=== PATIENT | female | born 1940 | race Caucasian/White ===

== ENCOUNTER → 2016-08-20 | Outpatient (CLI) | payer BC ==
[~2016-08-20] MED LIST: CALC500C70 PO; GLC500 PO; GLIM2TAB2 PO; LIRA18IN SC; LTR510 PO; PANT40TA PO; SIMV10TA2 PO
[2016-08-20 10:29] LABS: ESTIMATED AVERAGE GLUCOSE 154 mg/dl; HA1C FLAG Normal (Normal)
[2016-08-20 10:54] LABS: ALT/SGPT 16 U/L (12-78); AST/SGOT 10 U/L (15-37); BLOOD UREA NITROGEN 12 mg/dl (7-18); BUN/CREATININE RATIO 20.9 (10-20); CARBON DIOXIDE 30 mmol/L (21-32); CHLORIDE 108 mmol/L (98-107); CREATININE 0.58 mg/dl (0.60-1.20); GLUCOSE 86 mg/dl (70-99); POTASSIUM 3.8 mmol/L (3.5-5.1); SODIUM 145 mmol/L (136-145)
[2016-08-20 10:56] LABS: ALB/GLOB RATIO 1.3 (0.9-2); CHOLESTEROL 155 mg/dl (0-200); TRIGLYCERIDES 93 mg/dl (0-150); VERY LOW DENSITY LIPOPROT CALC 19 mg/dl
[2016-08-20 10:57] LABS: CALCIUM 9.5 mg/dl (8.5-10.1)
[2016-08-20 10:58] LABS: ALKALINE PHOSPHATASE 96 U/L (45-117); CHOLESTEROL/HDL RATIO 2.3; HDL CHOLESTEROL 68 mg/dl; LDL CHOLESTEROL CALCULATED 68 mg/dl
--- NOTE | 2016-08-26 09:34 | CODING QUERY MEDICAL NECESSITY ---
SUPPORTING DIAGNOSIS NEEDED Dr. Dos Santos, A supporting diagnosis is required for the test/procedure performed on this patient in order for us to be reimbursed by the patient's insurance. Please provide a supporting diagnosis for the following test/procedure listed below next to the test name along with your signature. *If there is no additional diagnosis for this patient that would support the following test/procedure please document that below next to the test/procedure. Test(s)/Procedure(s) that require a supporting diagnosis: * [id number] GLYCATED HEMOGLOBIN DIAGNOSIS: DATE OF SERVICE: 08/20/16 Provider Signature: Date: Thank you Kashif Rich [facility] Information Management Once completed, please kindly fax back to [phone] For questions please call [phone]
== END | disposition home or self-care (01) ==
LOC: C.LAB 08:00
PROVIDERS: ATTEND Internal Medicine
DX: M85.80 Other specified disorders of bone density and structure, unspecified site (principal); E11.9 Type 2 diabetes mellitus without complications

== ENCOUNTER → 2017-02-18 | Outpatient (CLI) | payer BC ==
[2017-02-18 09:27] LABS: BASO % 0.1 %; BASO ABS # 0.01 K/uL (0-0.2); COMPLETE YES; EOS % 0.9 %; HEMATOCRIT 40.1 % (37-47); IG% 0.1 %; LYMPH % 35.6 %; LYMPH ABS # 2.42 K/uL (1.2-3.4); MEAN CELL VOLUME 85.3 fL (80-100); MEAN CORPUSCULAR HEMOGLOBIN 28.9 pg (25-34); MEAN CORPUSCULAR HGB CONC 33.9 g/dl (32-36); MEAN PLATELET VOLUME 10.8 fL (7.4-10.4); MONO % 8.8 %; NEUT % 54.5 %; PLATELET COUNT 356 K/uL (130-400)
[2017-02-18 09:48] LABS: ALT/SGPT 16 U/L (12-78); BLOOD UREA NITROGEN 13 mg/dl (7-18); BUN/CREATININE RATIO 19.8 (10-20); CALCIUM 9.5 mg/dl (8.5-10.1); CARBON DIOXIDE 27 mmol/L (21-32); CHLORIDE 107 mmol/L (98-107); CHOLESTEROL 148 mg/dl (0-200); CREATININE 0.66 mg/dl (0.60-1.20); GLUCOSE 91 mg/dl (70-99); SODIUM 141 mmol/L (136-145); TRIGLYCERIDES 86 mg/dl (0-150); VERY LOW DENSITY LIPOPROT CALC 17 mg/dl
[2017-02-18 09:58] LABS: ALB/GLOB RATIO 0.9 (0.9-2); ALKALINE PHOSPHATASE 94 U/L (45-117); AST/SGOT 13 U/L (15-37); CHOLESTEROL/HDL RATIO 2.7; HDL CHOLESTEROL 55 mg/dl; LDL CHOLESTEROL CALCULATED 76 mg/dl
[2017-02-18 10:34] LABS: ESTIMATED AVERAGE GLUCOSE 157 mg/dl; HA1C FLAG Normal (Normal)
--- NOTE | 2017-02-25 08:13 | CODING QUERY MEDICAL NECESSITY ---
CQSUPPORTING DIAGNOSIS NEEDED A supporting diagnosis is required for the test/procedure performed on this patient in order for us to be reimbursed by the patient's insurance. Please provide a supporting diagnosis for the following test/procedure listed below next to the test name along with your signature. *If there is no additional diagnosis for this patient that would support the following test/procedure please document that below next to the test/procedure. Test(s)/Procedure(s) that require a supporting diagnosis: DOS 02/18/17 GLYCATED HEMOGLOBIN TEST LIPID TEST THYROID TEST Provider Signature: Date: Thank you Jessie Styles [facility] Information Management Once completed, please kindly fax back to [phone] For questions please call [phone]
== END | disposition home or self-care (01) ==
LOC: C.LAB 07:39
PROVIDERS: ATTEND Internal Medicine
DX: G47.33 Obstructive sleep apnea (adult) (pediatric) (principal); E11.9 Type 2 diabetes mellitus without complications; E78.5 Hyperlipidemia, unspecified

== ENCOUNTER → 2017-04-07 | Outpatient (CLI) | payer BC ==
--- NOTE | 2017-04-07 15:40 | MAMMOGRAPHY REPORT ---
BILATERAL DIGITAL SCREENING MAMMOGRAM WITH CAD: 04/07/2017 CLINICAL HISTORY: Routine screening. TECHNIQUE: Current study was also evaluated with a Computer Aided Detection (CAD) system. Bilateral CC and MLO views were obtained. COMPARISON: Comparison is made to exams dated: 09/28/2012 mammogram and 09/19/2009 mammogram - [facility]. BREAST COMPOSITION: There are scattered areas of fibroglandular density in both breasts. FINDINGS: No suspicious masses, calcifications, or areas of architectural distortion are noted in ei ther breast. There has been no significant interval change compared to prior exams. IMPRESSION: ACR BI-RADS CATEGORY 1: NEGATIVE There is no mammographic evidence of malignancy. A 1 year screening mammogram is recommended. The pa tient will receive written notification of the results. Approximately 10% of breast cancers are not detected with mammography. A negative mammographic report should not delay biopsy if a clinically suggestive mass is present. Mariam Niño M.D. ah/:04/07/2017 14:57:23 Electric Blanket Wirer: George CHANCE(Luis)(Win), [facility] letter sent: Normal 1/2 BI-RADS Code: ACR BI-RADS Category 1: Negative
== END | disposition home or self-care (01) ==
LOC: C.MAMM 14:05
PROVIDERS: ATTEND Internal Medicine
DX: Z12.31 Encounter for screening mammogram for malignant neoplasm of breast (principal)

== ENCOUNTER → 2017-08-26 | Outpatient (CLI) | payer BC ==
[2017-08-26 10:08] LABS: BASO % 0.2 %; BASO ABS # 0.01 K/uL (0-0.2); EOS % 0.7 %; EOS ABS # 0.04 K/uL (0-0.5); HEMATOCRIT 40.4 % (37-47); HEMOGLOBIN 13.6 g/dL (12.0-16.0); IG# 0.01 K/uL (0.00-0.02); LYMPH % 39.3 %; LYMPH ABS # 2.29 K/uL (1.2-3.4); MEAN CELL VOLUME 86.7 fL (80-100); MEAN CORPUSCULAR HEMOGLOBIN 29.2 pg (25-34); MEAN CORPUSCULAR HGB CONC 33.7 g/dl (32-36); MEAN PLATELET VOLUME 11.5 fL (7.4-10.4); MONO % 8.2 %; MONO ABS # 0.48 K/uL (0.11-0.59); NEUT % 51.4 %; NEUT ABS # 2.99 K/uL (1.4-6.5); PLATELET COUNT 302 K/uL (130-400); RED CELL DISTRIBUTION WIDTH CV 13.6 % (11.5-14.5); WHITE BLOOD COUNT 5.82 K/uL (4.8-10.8)
[2017-08-26 10:19] LABS: HEMOGLOBIN A1C 7.2 % (4.5-5.6)
[2017-08-26 10:22] LABS: ALBUMIN 3.6 gm/dl (3.4-5.0); ALT/SGPT 19 U/L (12-78); BLOOD UREA NITROGEN 16 mg/dl (7-18); CALCIUM 9.1 mg/dl (8.5-10.1); CARBON DIOXIDE 29 mmol/L (21-32); CHOLESTEROL 145 mg/dl (0-200); CREATININE 0.66 mg/dl (0.60-1.20); GLUCOSE 91 mg/dl (70-99); POTASSIUM 4.1 mmol/L (3.5-5.1); SODIUM 139 mmol/L (136-145)
[2017-08-26 10:26] LABS: ALKALINE PHOSPHATASE 90 U/L (45-117); AST/SGOT 16 U/L (15-37); LDL CHOLESTEROL CALCULATED 70 mg/dl; TOTAL PROTEIN 7.2 gm/dl (6.4-8.2)
== END | disposition home or self-care (01) ==
LOC: C.LAB 07:47
PROVIDERS: ATTEND Internal Medicine
DX: M85.80 Other specified disorders of bone density and structure, unspecified site (principal)

== ENCOUNTER 2021-01-07 06:30 | Observation (INO) ==
--- NOTE | 2020-12-03 09:53 | PAT Medication Instructions ---
Medication Instructions Date of Service December 03, 2020 Home Medications Medication Instructions Recorded blood sugar diagnostic #100 ea 10/26/19 FreeStyle Lite Meter #1 ea NS 04/15/20 pen needle, diabetic 32 gauge x #180 ea 05/22/20" Wheeled Walker #1 ea 05/29/20 insulin lispro 100 unit/mL 3 unit SQ BID #1 box MDD 10 11/28/20 subcutaneous pen metformin 500 mg tablet,extended 500 mg PO BID 90 Days #180 tab 11/28/20 release 24 hr calcium carbonate 600 mg calcium (1,500 mg) tablet 600 mg PO QAM multivitamin 1 tab PO QAM amlodipine-benazepril 1 cap PO QAM insulin degludec [Tresiba FlexTouch U-100] 5 units SQ QAM simvastatin 10 mg PO HS insulin lispro 100 unit/mL subcutaneous pen 3 unit SQ BID metformin 500 mg tablet,extended release 24 hr 500 mg PO BID DO NOT take the morning of surgery calcium carbonate 600 mg calcium (1,500 mg) tablet 600 mg PO QAM multivitamin 1 tab PO QAM amlodipine-benazepril 1 cap PO QAM insulin lispro 100 unit/mL subcutaneous pen 3 unit SQ BID metformin 500 mg tablet,extended release 24 hr 500 mg PO BID Take evening before surgery simvastatin 10 mg PO HS insulin lispro 100 unit/mL subcutaneous pen 3 unit SQ BID metformin 500 mg tablet,extended release 24 hr 500 mg PO BID Insulin Dependent Diabetic Patients * Test your blood sugar the morning of surgery * If Blood Sugar is GREATER THAN 150, take HALF of your regular dose of: insulin degludec [Tresiba FlexTouch U-100] take 2 units * If Blood Sugar is LESS THAN 150, DO NOT TAKE ANY: insulin degludec [Tresiba FlexTouch U-100] Other Notes If you have any questions please call us at [phone] or [phone] or [phone] or [phone]
--- NOTE | 2020-12-05 10:20 | Anesthesiology Consultation ---
Date of Service December 05, 2020 Assessment & Plan (1) Encounter for pre-operative examination: - COVID screening: Per assessment on 12/05: Travel screen negative, no known COVID-19 positive contacts or current COVID-19 related symptoms. Patient had second COVID vaccine 11/27. Surgeon arranging preop COVID testing (scheduled 01/01; [facility]). Awaiting results. - Check BSG AM DOS - PCP office visit (11/06/20): "End-stage right knee osteoarthritis. Planning knee replacement in December. Will likely need repeat medical evaluation preoperatively. Would like to have a little better control diabetes before surgery, at minimum A1c 8." Hgba1c 9.8% on preop labs. Personally reviewed by Dr. Byrd > patient was advised by surgeon's office that she is to work with he r PCP to improve glycemic control as much as possible prior to surgery- does not feel that formal clearance needed from their perspective. Surgery r/s to 01/07 (will allow for more time for improvement in glycemic control). Kylie at surgeon's office made aware of increased risks r/t poorly controlled diabetes and potential for cancellation depending on BSG AM DOS. Chart Review Chart Review: Acceptable Risk for Surgery (pending BSG AM DOS) and Patient seen in Pre Admission Testing Teaching & Discussion Pre-Anesthesia Teaching/Discussion Notes: Instructed NPO after midnight before surgery,except medications with 15 cc of water. Medication instructions provided according to the PAT guidelines. History Surgery Operation Date: 01/07/21 07:15 Proposed Procedures p Right Unicompartmental Knee versus - Roberto Byrd MD s Right Total Knee Arthroplasty - Roberto Byrd MD Height/Weight Height: 5 ft 4 in Weight: 80.3 kg Allergies Allergy/AdvReac Type Severity Reaction Status Date / Time No Known Allergies Allergy Verified 11/28/20 09:58 Medications Home Medications Medication Instructions Recorded Confirmed Last Taken calcium carbonate 600 mg calcium 600 mg PO QAM tab 03/08/19 11/28/20 Unknown (1,500 mg) tablet multivitamin 1 tab PO QAM tab 04/13/19 11/28/20 Unknown blood sugar diagnostic #100 ea 10/26/19 11/28/20 Unknown FreeStyle Lite Meter #1 ea NS 04/15/20 11/28/20 Unknown pen needle, diabetic 32 gauge x #180 ea 05/22/20 11/28/20 Unknown " Wheeled Walker #1 ea 05/29/20 05/29/20 Unknown amlodipine-benazepril 1 cap PO QAM 11/27/20 11/28/20 Unknown insulin degludec [Tresiba 5 units SQ QAM 11/27/20 11/28/20 Unknown FlexTouch U-100] simvastatin 10 mg PO HS 11/27/20 11/28/20 Unknown insulin lispro 100 unit/mL 3 unit SQ BID #1 box MDD 10 11/28/20 11/28/20 Unknown subcutaneous pen metformin 500 mg tablet,extended 500 mg PO BID 90 Days #180 tab 11/28/20 11/28/20 Unknown release 24 hr Past Medical History Medical History Chronic low back pain Diabetic retinopathy Gastroparesis Generalized osteoarthritis GERD (gastroesophageal reflux disease) controlled Hyperlipidemia Hypertension 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 Per records Obstructive sleep apnea Could not tolerate device Osteopenia after menopause Type 2 diabetes mellitus with peripheral neuropathy IDDM Exercise / Class Metabolic Activity III < 4 Walking/Shop/Light housework (no chest pain/no sob with walking) Past Family History Family History Father Stroke Mother Diabetes Grandmother (Maternal) Diabetes Denies family history of Ovarian cancer Prostate cancer Myocardial infarction Breast cancer Lung cancer Colorectal cancer Past Surgical History Surgical History H/O tubal ligation History of ankle surgery Left History of cataract surgery R/L History of colonoscopy History of tooth extraction Past Anesthesia History No Hx of Anesthesia Complications and No Family Hx of Anesthesia Complications History of PONV No Hx of PONV and Hx of Motion Sickness Social History Smoking Status: Never smoker Do You Dip or Chew Tobacco: No Hx Alcohol Use: No Hx Substance Use: No substance use type: does not use Review of Systems Patient denies chest pain, shortness of breath, fever, chills, cough, wheezing, palpitations. Physical Exam Vital Signs VITALS BP 127/76 P 83 TEMP 97.8 SP02 98%RA RESP 16 PHYSICAL Mildly decreased cervical extension range of motion. Full TMJ range of motion. TMD 3.5 finger breaths Mallampati Score 3 Dentition: intact, several crowns (molars), "glued" upper front teeth Lungs: clear throughout to auscultation Cardiac: regular rate and rhythm, I/ systolic murmur Spine: normal Carotid arteries: negative bruit Extremities: no edema Testing Laboratory Results 12/05/20 10:54 12/05/20 10:54 PT 10.8 Seconds (9.0-12.0) 12/05/20 10:54 INR 1.1 (0.9-1.1) 12/05/20 10:54 APTT 25.8 Seconds (21.0-31.0) 12/05/20 10:54 Hemoglobin A1c 9.8 % (4.5-5.6) H 12/05/20 10:54 Blood Type A Positive 12/05/20 10:54 Antibody Screen NEGATIVE 12/05/20 10:54 Surgeon's office made aware of significant elevated hgba1c/a1c* Electrocardiogram Date: 12/05/20 NSR with occasional PACs at 65bpm. Chest X-Ray Date: 12/05/20 FINDINGS: The heart is mildly enlarged. There is aortic tortuosity/ectasia. There is no failure. There is no focal pulmonary consolidation. There are no pleural effusions.[ IMPRESSION: No active disease in the chest.
--- NOTE | 2020-12-05 11:30 | XRay Report ---
XR chest Pre-admission PA/Lat CLINICAL HISTORY: Preoperative chest COMPARISON STUDY: CT scan performed 2007 FINDINGS: The heart is mildly enlarged. There is aortic tortuosity/ectasia. There is no failure. Ther e is no focal pulmonary consolidation. There are no pleural effusions.[ IMPRESSION: No active disease in the chest. ACT 112: Negative or not required by law. Electronically signed by: Kaiden Haynes M.D. 12/05/2020 11:29 AM
--- NOTE | 2020-12-05 11:54 | Electrocardiogram Report ---
Test Reason : Blood Pressure : / mmHG Vent. Rate : 065 BPM Atrial Rate : 065 BPM P-R Int : 196 ms QRS Dur : 078 ms QT Int : 408 ms P-R-T Axes : 061 053 043 degrees QTc Int : 424 ms Normal sinus rhythm with occasional Premature atrial complexes When compared with ECG of 22-JUN-2011 14:29, Premature atrial complexes now present Otherwise no significant change Confirmed by Jameson Lamas ([id number]) on 12/05/2020 11:54:20 AM Referred By: Roberto Byrd Confirmed By:Jameson Lamas
[2020-12-05 12:33] LABS: Basophils # (auto) 0.01 K/uL (0-0.2); Basophils % (auto) 0.2 %; Eosinophils # (auto) 0.03 K/uL (0-0.5); Eosinophils % (auto) 0.6 %; Hematocrit (blood only) 39.5 % (37-47); Hemoglobin 13.1 g/dL (12.0-16.0); Lymphocytes # (auto) 1.54 K/uL (1.2-3.4); Lymphocytes % (auto) 30.2 %; Mean Corpuscular Hemoglobin 29.2 pg (25-34); Mean Corpuscular Hgb Conc 33.2 g/dL (32-36); Mean Corpuscular Volume 88.2 fL (80-100); Mean Platelet Volume 12.5 fL (7.4-10.4); Monocytes # (auto) 0.23 K/uL (0.11-0.59); Monocytes % (auto) 4.5 %; Neutrophils # (auto) 3.29 K/uL (1.4-6.5); Neutrophils % (auto) 64.5 %; Platelet Count 279 K/uL (130-400); RDW Coefficient of Variation 13.6 % (11.5-14.5); RDW Standard Deviation 44.4 fL (36.4-46.3); Red Blood Count 4.48 M/uL (4.2-5.4)
[2020-12-05 12:49] LABS: INR 1.1 (0.9-1.1); Partial Thromboplastin Time 25.8 Seconds (21.0-31.0); Prothrombin Time 10.8 Seconds (9.0-12.0)
[2020-12-05 13:29] LABS: Estimated Average Glucose 235 mg/dl; Hemoglobin A1C 9.8 % (4.5-5.6)
[2020-12-05 13:43] LABS: BUN Creatinine Ratio 20.8 (10-20); Calcium 8.8 mg/dl (8.5-10.1); Creatinine Clr Calc Pharmacy 64.6 ml/min; Est GFR (African American) 94.2; Est GFR (Non-African American) 81.3; Potassium 4.4 mmol/L (3.5-5.1)
--- NOTE | 2021-01-03 10:42 | History and Physical Report ---
DATE OF ADMISSION: 01/07/2021 CHIEF COMPLAINT: Persistent right knee pain and discomfort. HISTORY OF PRESENT ILLNESS: The patient is an 80-year-old female who presents for surgical treatment of her right knee. She has been treated by my partner, Dr. Moya in the past for several years. She has developed increased pain and discomfort. She has had temporary relief from injections, which last now only a couple weeks or so. Pain is mostly medial. It is increased with weightbearing. It is affecting her ability to maintain an active and independent lifestyle. She lives by herself and having more trouble doing this. She would like to have her knee fixed. PAST MEDICAL HISTORY: 1. Diabetes with an A1c of 9.2. She has been working hard with her regulatory administrator to try and get this improved. 2. Sleep apnea. 3. Hypertension. 4. Chronic back pain. PAST SURGICAL HISTORY: Include ankle surgery. ALLERGIES: None. CURRENT MEDICINES: Include: 1. Amlodipine/benazepril once a day. 2. Calcium carbonate. 3. Insulin. 4. Metformin. 5. Multivitamin. 6. Simvastatin. SOCIAL HISTORY: This is an 80-year-old female. Lives by herself. No significant alcohol or smoking history. FAMILY HISTORY: Noncontributory. REVIEW OF SYSTEMS: Significant for fairly poorly controlled diabetes. Denies any chest pain or shortness of breath. No history of DVT or PE. No known bleeding problems. PHYSICAL EXAMINATION GENERAL: Shows a pleasant elderly female. Looks younger than her stated age. HEENT: Benign. NECK: Supple, no lymphadenopathy. LUNGS: Clear to auscultation. HEART: Has a regular rate and rhythm. ABDOMEN: Soft, nontender and nondistended. EXTREMITIES: Grossly neurovascularly intact except as follows. Examination of the right knee. She walks independently. She has got varus alignment to her knee. She has got some bony hypertrophy medially and tender over the medial joint line. Small knee effusion. Range of motion 0-125. No instability. ACL is intact. No pain with hip motion. X-RAYS: X-rays of the right knee show advanced right knee medial compartment DJD. She has complete loss of medial joint space. Little bit of chondrocalcinosis laterally. With stress testing, her medial compartment opens up nicely and the lateral compartment is well preserved. ASSESSMENT: An 80-year-old white female with advanced right knee medial compartment degenerative joint disease. She has failed conservative treatment and would like to have her right knee fixed. PLAN: We talked about treatment options. We are going to take her to the operating room and do a right partial knee replacement. If I get in there and the disease is too bad, we will do a full knee replacement. The risks and benefits of this procedure were explained to the patient including but not limited to DVT, PE, , infection, neurological injury, vascular injury, bleeding problem, pain, limited range of motion, stiffness, failure to relieve symptoms, incomplete relief of symptoms, need for further surgery in future, fracture, leg length inequality, nerve palsy, dislocation, etc. The patient understands and desires to proceed. Informed consent was obtained. She does have an elevated blood glucose and A1c. She has been working with her regulatory administrator to try and get this improved but struggling. She has essentially been optimized. In light of this, we will proceed. She is aware that there is increased risk of infection with an elevated blood glucose and poorly controlled diabetes, but does not look like we were able to get it under any better control. She will continue working on this. We talked about holding her metformin in the morning of surgery. She lives alone and we will see how she does postoperatively, but either some family help or she may go to a rehab.
[~2021-01-07 06:30] MED LIST changes: +ACETAMINOPHEN 500 MG TAB PO SCH; +BUPIVACAINE 0.25% 30 ML VIAL ONE; +BUPIVACAINE 0.5 % 5 MG/1 ML PF 10ML VIAL ONE; +BUPIVACAINE LIPOSOME/PF 266 MG, BUPIVACAINE/EPINEPHRINE 50 ML, SODIUM CHLORIDE 0.9% 30 ... INFIL SCH; -CALC500C70 PO; +DEXAMETHASONE SOD INJ 4 MG/ML VIAL ONE; +EPINEPHrine INJ 1 MG/ML AMP ONE; +FAMOTIDINE 20 MG TAB PO SCH; +GABAPENTIN 300 MG CAP PO SCH; -GLC500 PO; -GLIM2TAB2 PO; -LIRA18IN SC; +LR 500ML BOLUS, THEN 15ML/HR IV SCH; +LR 60ML/HR IV SCH; -LTR510 PO; +METOCLOPRAMIDE HCL 10 MG TABLET PO SCH; -PANT40TA PO; -SIMV10TA2 PO; +ceFAZolin 2000MG 2,000 MG/15 ML SYR IV SCH
--- NOTE | 2021-01-07 06:50 | History & Physical Bridge Note ---
Date of Service January 07, 2021 History & Physical Bridge Note I have examined the patient, reviewed the History & Physical and in the interval since the performance of the History & Physical I have noted the following changes of clinical significance: no changes noted
[2021-01-07] MEDS ORDERED: fentaNYL citrate 100 MCG/2 ML VIAL ONE (07:52)
[2021-01-07] MEDS ORDERED: MIDAZOLAM HCL 1 MG/ML 2ML VIAL ONE (07:52)
[2021-01-07] MEDS ORDERED: BUPIVACAINE LIPOSOME 1.3% 266 MG/20 ML VIAL ONE (08:45)
[2021-01-07] MEDS ORDERED: SODIUM CHLORIDE 0.9% PF 50 ML VIAL ONE (08:45)
[2021-01-07] MEDS ORDERED: BUPIVACAINE 0.25% 30 ML VIAL ONE (08:46)
[2021-01-07] MEDS ORDERED: EPINEPHrine INJ 1 MG/ML AMP ONE (08:46)
[2021-01-07] MEDS ORDERED: ATROPINE SULFATE 0.1 MG/ML 10ML SYR IV PRN (09:22)
[2021-01-07] MEDS ORDERED: fentaNYL citrate 100 MCG/2 ML VIAL IV PRN (09:22)
[2021-01-07] MEDS ORDERED: ONDANSETRON INJ 2 MG/ML 2 ML VIAL IV PRN ×2 (09:22→12:31)
[2021-01-07] MEDS ORDERED: ePHEDrine sulfate 50 MG/ML AMP IV PRN (09:22)
[2021-01-07] MEDS ORDERED: PROPOFOL IV EMULSION 10 MG/ML 20 ML VIAL IV ONE (09:35)
[2021-01-07] MEDS: TRANEXAMIC ACID 1,000 MG **IV Intra-op IV SCH ×2 (10:40→10:46)
--- NOTE | 2021-01-07 11:05 | Operative Report ---
Post Operative Report Pre & Post Diagnosis Operation Date: 01/07/21 08:50 Pre-Op Diagnosis: Right Knee Medial Compartment Degenerative Joint Disease Post-Op Diagnosis: Right Knee Medial Compartment Degenerative Joint Disease I identified the patient and participated in the time-out.: Yes Procedure Operation Date: 01/07/21 08:50 Actual Procedures p Right Unicompartmental Knee Arthroplasty(Right) - Roberto Byrd MD Surgeon Roberto Byrd MD Canning Machine Operator DAKOTAH Queen Estimated Blood Loss 25 Findings Consistent with Post-Op Diagnosis Operative findings revealed advanced right knee medial compartment DJD. She had grade 4 [id number] disease of the medial compartment. She had osteophytes medially. Laterally here lateral compartment pretty well-preserved. Patellofemoral compartment well-preserved. Fluids 1500 cc. Specimens Right knee sent for pathology. Anesthesia Type Spinal MAC Complications none Disposition Accompanied Patient To Recovery: No Disposition: Recovery Room Indications Patient is an 80-year-old female whose had a several year history of increasing right knee pain discomfort which became less responsive conservative care. She lives by herself and fairly independent having more difficulty doing this due to her knee pain. X-ray showed medial compartment arthritis. Symptoms localized to the medial side of her knee. She had some fairly mild chondrocalcinosis but based on her symptoms and x-rays we felt a partial knee replacement was not her best option. She also fairly brittle and poorly controlled diabetic and felt this was the best operation for her with the most limited risks. Description of Procedure Operative implants consist of: 1 Biomet Bristol size small femoral component. 2. Biomet [place] right medial size for mobile-bearing polyethylene insert. 3. Biomet [place] right medial size C tibial tray. The patient was taken to the operating, identified, placed on the operating table supine position but a contractors were properly padded. IV antibiotics tried by anesthesia team. A spinal anesthetic and been implemented holding area. Hernandez catheter was placed in sterile fashion. Right factor was then placed in the right lower extremities and prepped and draped in usual sterile fashion. The right leg was elevated exsanguinated with use of an Esmarch and turns placed at 3 mmHg. An anterior approach to the right knee was then performed to longitudinal incision centered over the patella. This went from the superior pole the patella to just medial to the tibial tubercle. Sharp dissection was got through subcutaneous tissues. A medial parapatellar arthrotomy incision was made. Some slight subperiosteal dissection was carried out medially taking great care to protect the MCL ligament. The osteophytes were taken off distal femur as well as the intercondylar notch area. The ACL was examined and intact. I then examined the lateral compartment and looked well preserved. We elected to proceed with a partial knee replacement. The distal femur was then sized to a size small. The external tibial alignment jig was then placed in the interface the tibia and attached to the small spoon. The 4G clamp was used. Tibial cutting guide was pinned in position. The proximal tibial cut was made. Tibia sized to a size C. Attention drawn the femur. The distal femur during the sharp drill bit intramedullary elvia was placed. The small femoral guide was placed and attached to the IM elvia and the holes were drilled for the femoral component. The posterior cutting guide was placed and the posterior cut was made. The 0 spigot was placed in the distal femur was milled. I then trialed the knee in the 4 feeler gauge fit well and flexion and the 1 in extension. Therefore we removed everything and placed the 3 spigot. The distal femur was milled. We trialed the knee again it was well balanced with a 4 implant. We elect to place these implants. The trial implants were removed. The cement drill was used to create some holes in the distal femur for cement interdigitation. Posterior osteophyte was remove d along with the anterior flange of the femur. The tibial tray was pinned in place. The toothbrush saw was used to create the keel for the tibial tray. The medial meniscus had already been excised. We then trialed the knee 1 more time and the 4 insert fit appropriately. We proceed with the placing the implants. All trial implants were removed. The knee was irrigated with copious amounts of pulsatile lavage solution. A single batch [place] G cement was mixed. A right medial size C tibial tray was then cemented in place followed by a small femoral component. A 4 feeler gauge was placed and the knee was brought out into 30 degrees short of full extension total cement hardened. Once the cement hardened final cement check was then performed. We then trialed the knee 1 more time the 4 insert fit appropriately. The permanent 4 insert was placed. The wound was then irrigated extensively. I did inject locally with 100 cc of combination of 20 cc of Exparel, 30 cc of normal saline and 50 cc of quarter percent Marcaine with epinephrine. The patient did receive 1 g tranexamic acid but the tourniquet was then let down for turn time 66 minutes. Hemostasis reduced electrocautery. Extensor neck was then closed with #1 Vicryl suture in a [id number] fashion. The subcutaneous tissue then closed with 2 Dexon suture in buried nerve fascia skin was closed skin debra. Leg was then cleaned and dried and a sterile dressing both Xeroform, 4 x 4's, sterile cast padding, Ronny bandage were applied. Patient then transferred to the recovery room in stable condition. Patient tolerated procedure well there are no complications. Terry Queen, my physician assistant account manager, was present for the entire procedure. His assistance was essential and required for appropriate patient positioning, prepping and draping, surgical exposure, performing the technical details of the operation, placement the implants, closure of the wound, and placement of the sterile bandage. I attest to the content of the Intraoperative Record and any orders documented therein. Any exceptions are noted below.
--- NOTE | 2021-01-07 11:46 | XRay Report ---
RIGHT KNEE 2 VIEWS History: Right medial unicondylar prosthesis. Degenerative arthritis. Postop. FINDINGS: The patient is status post a right medial unicondylar prosthesis. The hardware is intact. N o fracture or dislocation. Skin debra are in place. IMPRESSION: Right medial unicondylar prosthesis. No evidence for hardware complication. ACT 112: Negative or not required by law. Electronically signed by: Ge Rodriguez M.D. 01/07/2021 11:45 AM
--- NOTE | 2021-01-07 12:07 | Anesthesiology Progress Note ---
Date of Service January 07, 2021 Anesthesia Post Procedure Vital Signs Vital Signs: Temp Pulse Pulse Resp BP Pulse Ox 01/07/21 11:35 36.4 C L 79 21 126/62 96 01/07/21 11:25 73 20 129/65 99 01/07/21 11:15 76 21 125/61 100 01/07/21 11:05 36.1 C L 84 20 110/51 L 100 01/07/21 10:57 35.8 C L 56 L 16 112/56 L 100 01/07/21 06:45 36.7 C 85 20 150/86 H 98 Transfer of Care Handoff Completed per policy Notes Mental Status: alert / awake / arousable Patient Amnestic to Procedure: Yes Nausea / Vomiting: adequately controlled Pain: adequately controlled Airway Patency, RR, SpO2: stable & adequate BP & HR: stable & adequate Hydration State: stable & adequate Neuraxial Anesthesia: was administered and sensory block is resolving Anesthetic Complications: no major complications apparent
[2021-01-07] MEDS ORDERED: NALOXONE HCL 0.4 MG/1 ML VIAL/CARP IV PRN (12:31)
[2021-01-07] MEDS ORDERED: bisacodyL 10 MG SUPP PR PRN (12:31)
[2021-01-07] MEDS ORDERED: METOCLOPRAMIDE HCL INJ 5 MG/ML 2 ML VIAL IV PRN (12:31)
[2021-01-07] MEDS ORDERED: ALUMINUM/MAGNESIUM SUSP 30 ML UDC PO PRN (12:31)
[2021-01-07] MEDS ORDERED: HYDROmorphone INJ 0.5 MG/0.5 ML SYR IV PRN (12:31)
[2021-01-07] MEDS ORDERED: traMADol HCL 50 MG TABLET PO PRN (12:31)
[2021-01-07] MEDS ORDERED: MAGNESIUM HYDROXIDE SUSP 30 ML UDC PO PRN (12:31)
[2021-01-07] MEDS ORDERED: PHARMACY GLYCEMIC MGMT CONSULT SCH (12:54)
[2021-01-07] MEDS ORDERED: INSULIN GLARGINE SOLOSTAR 100 UNITS/ML 3 ML PEN SC STA (13:07)
[2021-01-07] MEDS ORDERED: CARBOHYDRATES FOR HYPOGLYCEMIA PO PRN ×2 (13:15→16:18)
[2021-01-07] MEDS ORDERED: GLUCAGON FOR INJ 1 MG VIAL IM PRN (13:15)
[2021-01-07] MEDS ORDERED: DEXTROSE 50% 50 ML SYRINGE IV PRN ×2 (13:15→16:18)
[2021-01-07] MEDS ORDERED: GLUCOSE 40% GEL 15 GM TUBE PO PRN ×2 (13:15→16:18)
[2021-01-07] MEDS ORDERED: GLUCOSE 10 TABS/TUBE PO PRN ×2 (13:15→16:18)
--- NOTE | 2021-01-07 13:20 | Pharmacy Report ---
Pharmacy Glycemic Short Note 2 - Date of Service January 07, 2021 - Glycemic Short BSG Results (Last 24 hours): 01/07/21 01/07/21 01/07/21 06:54 11:06 12:11 POC Glucose 105 H 108 H 135 H OUTPATIENT ANTIDIABETIC REGIMEN: * Tresiba 5 units Q AM * Humalog 3 units with lunch and 3 units with evening meal * Metformin 500mg PO daily w/ lunch * A1c = 9.8% 12/05/20 ASSESSMENT: * Type 2 diabetic admitted for Right Unicompartmental Knee Arthroplasty * Recent A1c reflective of poor control, however patient's self report of home BSGs is quite different. She reports fasting BSGs in 80-low 100s range with current regimen. She also reports post-prandial BSGs in 150-200 range. I am hesitant to utilize weight based doses for her at this time given low insulin requirements in the out-pt setting, current BSGs in low 100's, and self-report of what appears to be fairly good glycemic control. There is a small possibility that her glycosylation rate may not match that of the general population and her A1c is not as reliable. * Will resume home dose of basal but substitute Lantus as this is on formulary. No basal was given this AM, will give dose STAT as she is eating her lunch. * Novolog doses will be based on a combination of out-pt regimen and weight using "mild" stress to keep initial doses low PLAN FOR INPATIENT GLYCEMIC CONTROL: * Hold outpatient oral diabetes medications (metformin) - could consider resuming tomorrow if renal fxn stable and tolerating diet * Basal insulin * Lantus 5 units Q AM - 1st dose STAT * Bolus insulin * NovoLog per scale ACHS or Q6hrs while NPO * Goal Range: Low 110 mg/dL - High 140 mg/dL * Correction Factor: 30 mg/dL/unit * Nutritional / Prandial insulin per carb ratio of 1 unit per 15 grams CHO consumed PLAN FOR DISCHARGE: * Given large discrepancy between reported A1c and patient's self report of BSG values, I feel the discharge insulin regimen should remain the same however recommend f/u with PCP / Endocrinology to review BSG logs and insulin doses to determine what adjustments need made. If we discover she requires substantially more insulin this admission that is reported as out-pt, as small increase in doses on discharge may be considered.
[2021-01-07] MEDS: INSULIN ASPART 100 UNITS/ML 3 ML PEN SC SCH ×3 (14:04→20:42)
[2021-01-07] MEDS: SODIUM CHLORIDE 0.9% 1000ML 1,000 ML IV SCH (14:15)
[2021-01-07] MEDS: ACETAMINOPHEN 500 MG TAB PO SCH ×2 (14:17→21:33)
[2021-01-07] MEDS: KETOROLAC TROMETHAMINE 15 MG/ML VIAL IV SCH ×2 (14:17→19:49)
[2021-01-07] MEDS ORDERED: GLUCAGON FOR INJ 1 MG VIAL SQ PRN (16:18)
[2021-01-07] MEDS: ceFAZolin 2000MG 2,000 MG/15 ML SYR IV SCH (17:36)
[2021-01-07] MEDS: ASCORBIC ACID 500 MG TAB PO SCH (17:36)
[2021-01-07] MEDS: DOCUSATE SODIUM 100 MG CAP PO SCH (20:42)
[2021-01-07] MEDS: ASPIRIN 81 MG ECTAB PO SCH (20:42)
[2021-01-07] MEDS ORDERED: NON-FORMULARY MEDICATION (Insulin Lispro [Humalog Kwikpen Insulin] 100 unit/mL insulin pen SQ SCH (21:00)
[2021-01-07] MEDS ORDERED: SENNA 8.6 MG TAB PO SCH (21:00)
[2021-01-07] MEDS ORDERED: SIMVASTATIN 10 MG TAB PO SCH (21:00)
[2021-01-08] MEDS: ceFAZolin 2000MG 2,000 MG/15 ML SYR IV SCH (00:16)
[2021-01-08] MEDS: SODIUM CHLORIDE 0.9% 1000ML 1,000 ML IV SCH (00:19)
[2021-01-08] MEDS: KETOROLAC TROMETHAMINE 15 MG/ML VIAL IV SCH ×2 (01:57→09:07)
[2021-01-08] MEDS: ACETAMINOPHEN 500 MG TAB PO SCH ×2 (06:02→12:36)
[2021-01-08 06:22] LABS: Hematocrit (blood only) 35.3 % (37-47); Mean Corpuscular Hemoglobin 29.6 pg (25-34); Mean Corpuscular Volume 86.9 fL (80-100); Mean Platelet Volume 12.2 fL (7.4-10.4); Platelet Count 253 K/uL (130-400); RDW Coefficient of Variation 13.6 % (11.5-14.5); RDW Standard Deviation 43.5 fL (36.4-46.3); Red Blood Count 4.06 M/uL (4.2-5.4); White Blood Count 10.48 K/uL (4.8-10.8)
[2021-01-08 06:54] LABS: BUN Creatinine Ratio 23.4 (10-20); Creatinine Clr Calc Pharmacy 64.3 ml/min; Est GFR (African American) 94.2 ml/min; Est GFR (Non-African American) 81.3 ml/min; Potassium 3.7 mmol/L (3.5-5.1)
[2021-01-08] MEDS ORDERED: metFORMIN HCL ER 500 MG TABCR PO SCH (08:00)
--- NOTE | 2021-01-08 08:11 | Progress Notes ---
DATE: 01/08/2021 SUBJECTIVE: An 80-year-old white female postop day 1 from a right partial knee replacement. She is doing pretty well. Really not much pain. No chest pain or shortness of breath. Not feeling dizzy or lightheaded. OBJECTIVE: VITAL SIGNS: Temperature is 36.5. Vital signs stable. GENERAL: Shows a pleasant elderly female. She is sitting up in bed and looks pretty comfortable. She is awake, alert and oriented. EXTREMITIES: Examination of the right leg reveals the leg to be well aligned. Dressing is clean, dry, and intact. She can dorsiflex and plantarflex her foot appropriately. She can do a good straight leg raise. LABORATORY DATA: Hemoglobin 12.0. Hematocrit 35.3. Electrolytes are stable. ASSESSMENT: An 80-year-old white female postop day 1 from a right partial knee replacement, doing pretty well. PLAN: 1. DVT prophylaxis including thigh-high TEDs, SCDs, and aspirin twice a day. 2. PT/OT. Weight bear as tolerated. Right total knee protocol. 3. Pain control, doing well with current pain regimen. 4. Disposition: She is planning to be discharged to home with some home health. We will see how therapy goes today.
[2021-01-08] MEDS: INSULIN ASPART 100 UNITS/ML 3 ML PEN SC SCH ×2 (09:00→12:36)
[2021-01-08] MEDS ORDERED: CALCIUM CARBONATE 1250MG TAB PO SCH (09:00)
[2021-01-08] MEDS ORDERED: INSULIN GLARGINE SOLOSTAR 100 UNITS/ML 3 ML PEN SC SCH (09:00)
[2021-01-08] MEDS ORDERED: amLODIPine BESYLATE 5 MG TAB PO SCH (09:00)
[2021-01-08] MEDS ORDERED: NON-FORMULARY MEDICATION (Insulin Degludec [Tresiba Flextouch U-100] 100 unit/mL (3 mL) in SQ SCH (09:00)
[2021-01-08] MEDS ORDERED: MULTIVITAMIN TAB PO SCH ×2 (09:00)
[2021-01-08] MEDS ORDERED: ENALAPRIL MALEATE 10 MG TAB PO SCH (09:00)
[2021-01-08] MEDS: ASCORBIC ACID 500 MG TAB PO SCH (09:04)
[2021-01-08] MEDS: DOCUSATE SODIUM 100 MG CAP PO SCH (09:05)
[2021-01-08] MEDS: ASPIRIN 81 MG ECTAB PO SCH (09:05)
--- NOTE | 2021-01-08 10:53 | Pharmacy Report ---
Pharmacy Glycemic Short Note 2 - Date of Service January 08, 2021 - Glycemic Short BSG Results (Last 24 hours): 01/07/21 01/07/21 01/07/21 11:06 12:11 17:10 Glucose POC Glucose 108 H 135 H 272 H 01/07/21 01/08/21 01/08/21 20:31 05:44 08:00 Glucose 149 H POC Glucose 298 H 127 H OUTPATIENT ANTIDIABETIC REGIMEN: * Tresiba 5 units Q AM * Humalog 3 units with lunch and 3 units with evening meal * Metformin 500mg PO BIDM * A1c = 9.8% 12/05/20 ASSESSMENT: 01/08 * BSGs trended up significantly postoperatively, 272 and 298 mg/dL * Patient likely received dexamethasone in OR - not covered with additional basal insulin * Fasting BSG of 127 mg/dL this morning * Will continue home basal dose for now since no additional steroids currently ordered * Will restart metformin and tighten Novolog 01/07: * Type 2 diabetic admitted for Right Unicompartmental Knee Arthroplasty * Recent A1c reflective of poor control, however patient's self report of home BSGs is quite different. She reports fasting BSGs in 80-low 100s range with current regimen. She also reports post-prandial BSGs in 150-200 range. I am hesitant to utilize weight based doses for her at this time given low insulin requirements in the out-pt setting, current BSGs in low 100's, and self-report of what appears to be fairly good glycemic control. There is a small possibility that her glycosylation rate may not match that of the general population and her A1c is not as reliable. * Will resume home dose of basal but substitute Lantus as this is on formulary. No basal was given this AM, will give dose STAT as she is eating her lunch. * Novolog doses will be based on a combination of out-pt regimen and weight using "mild" stress to keep initial doses low PLAN FOR INPATIENT GLYCEMIC CONTROL: * Metformin ER 500 mg PO BIDM to start this morning * Basal insulin * Lantus 5 units Q AM * Bolus insulin * NovoLog per scale ACHS or Q6hrs while NPO * Goal Range: Low 110 mg/dL - High 140 mg/dL * Correction Factor: 25 mg/dL/unit * Nutritional / Prandial insulin per carb ratio of 1 unit per 8 grams CHO consumed PLAN FOR DISCHARGE: * Given large discrepancy between reported A1c and patient's self report of BSG values, I feel the discharge insulin regimen should remain the same however recommend f/u with PCP / Endocrinology to review BSG logs and insulin doses to determine what adjustments need made. If we discover she requires substantially more insulin this admission that is reported as out-pt, as small increase in doses on discharge may be considered.
[2021-01-08] MEDS ORDERED: INSULIN GLARGINE SOLOSTAR 100 UNITS/ML 3 ML PEN SC ONE (12:30)
--- NOTE | 2021-01-13 06:23 | Discharge Summary ---
Date of Service January 13, 2021 Discharge Data Procedures Performed Operation Date: 01/07/21 08:50 Actual Procedures p Right Unicompartmental Knee Arthroplasty(Right) - Roberto Byrd MD Diabetes Follow Up Diabetes Follow Up: Diabetes Follow-up Needed for HgbA1c >9% Hospital Course (1) Status post right partial knee replacement: 80 year old patient admitted on 01/07/21 and underwent unicompartment knee arthroplasty. She tolerated the procedure well and there were no complications. Transferred to the PACU post op and later to the orthopedic floor for further care. She was given ancef for antibiotic prophylaxis. She was also given ESTRELLITA stockings, SCDs, and aspirin for DVT prophylaxis. Hemoglobin, hematocrit, and vital signs were monitored during her hospital stay and remained stable. Did not require any blood transfusions. There were no complications during her hospital stay. By post op day #1 the patient was tolerating a diabetic diet, pain was reasonably controlled with oral pain medicine, and she was participating in physical therapy. On post op day #1 the patient was discharged home and set up with home health care. She was given printed discharge instructions including prescriptions for extra strength tylenol, aspirin, and tramadol. Continue physical therapy, weight bearing as tolerated. Continue ESTRELLITA stockings. Follow up approximately 2 weeks post op or sooner if there are problems or concerns. Coding Level of Care Code None Diagnoses Status post right partial knee replacement Z96.651
== END 2021-01-08 14:12 | disposition home health service (06) ==
LOC: ASU 06:30 → 3E 06:30

== ENCOUNTER 2023-01-06 10:23 | Inpatient (IN) ==
[2023-01-06] MEDS: SODIUM CHLORIDE 0.9% 1000ML 1,000 ML IV SCH ×3 (11:47→21:53)
[2023-01-06 11:58] LABS: Appearance Urine Clear (Clear); Bilirubin Urine Negative (Negative); Blood Urine Negative (Negative); Color Urine Yellow; Glucose Urine UA 3+ (Negative); Ketones Urine 2+ (Negative); Leukocyte Esterase Urine Negative (Negative); Nitrite Urine Negative (Negative); Protein Urine 3+ (Negative); Specific Gravity Urine >= 1.030 (1.000-1.030); Urobilinogen Urine Negative (Negative); pH Urine 5.5 (4.5-7.5)
--- NOTE | 2023-01-06 12:21 | XRay Report ---
SINGLE VIEW CHEST CLINICAL HISTORY: Sepsis. FINDINGS: An AP, portable, upright chest radiograph is compared to study dated 12/05/2020. Correlation is made with chest CT dated 08/14/2007. The heart is enlarged noting atherosclerotic calcification of the thoracic aorta there is pulmonary vascular congestion. There is bibasilar scarring/atelectasis. N o large pleural effusion or pneumothorax is seen. The skeletal structures are osteopenic. The bony th orax is grossly intact. IMPRESSION: Cardiomegaly with pulmonary vascular congestion. ACT 112: Negative or not required by law. Electronically signed by: Ronal Omer M.D. 01/06/2023 12:19 PM
[2023-01-06] MEDS ORDERED: CEFEPIME 2,000 MG/20 ML VIAL IV STA (12:32)
--- NOTE | 2023-01-06 12:35 | Emergency Department Note ---
Impression & Plan Generalized weakness, Acute left-sided low back pain, Anaplasmosis, Hypoxia, Elevated troponin ED Provider Note ED Provider Note NAME: PER CHAVARRIA AGE:82 SEX: Female : 1940 ARRIVES VIA: Private vehicle INFORMANT: Patient ED PROVIDER(s): Carolyn Dalton DO CHIEF COMPLAINT: Weakness, back pain, urinary symptoms HPI: This is an 82-year-old female presents the emergency department due to concern for weakness, fatigue, left low back pain, recent urinary symptoms. Patient states she first began not feeling well Tuesday night, with increased fatigue and weakness. She states she checked her temperature and initially was 99, and then went higher to 100.2 and she had accompanying fevers and chills. She states overnight Tuesday she began to notice urinary frequency. No change in the color of the odor. She states she has had a worsening appetite throughout the week and then began to develop left-sided low back pain additionally. She denies any coming abdominal pain, nausea or vomiting. She denies any further fevers or chills. No history of UTIs, kidney stones, or other kidney problems. She denies any recent fall or injury. She denies any other URI symptoms. No change in bowel movements. PAST MEDICAL HISTORY:See Below PAST SURGICAL HISTORY:See Below FAMILY HISTORY:See Below SOCIAL HISTORY:See Below HOME MEDICATIONS:See Below ALLERGIES:See Below VITALS:See Below PHYSICAL EXAMINATION: GENERAL: alert, well appearing, well nourished, no distress, non-toxic EYE EXAM: normal conjunctiva, PERRL and EOM's grossly intact OROPHARYNX: no exudate, no erythema, lips, buccal mucosa, and tongue normal and mucous membranes are dry NECK: supple, no nuchal rigidity, no adenopathy, non-tender LUNGS: Clear to auscultation. Normal chest wall mechanics, no w/r/r HEART: no murmurs, S1 normal and S2 normal ABDOMEN: abdomen soft, non-tender, normo-active bowel sounds, no masses, no rebound or guarding. BACK: Back is symmetrical on inspection and there is no deformity, no midline tenderness, no CVA tenderness. SKIN: no rashes, petechiae, orbruising UPPER EXTREMITIES: upper extremities are grossly normal. FROM, nml pulses b/l. LOWER EXTREMITIES: No pitting edema. FROM, nml pulses b/l. NEURO EXAM: Normal sensorium, cranial nerves II-XII grossly intact, normal speech, no facial droop,nogross weakness of arms, no gross weakness of legs. Gross sensation intact. No ataxia. Vital Signs: reviewed and remarkable Differential Diagnosis: UTI, ureterolithiasis, NICOLAS, electrolyte abnormality, musculoskeletal strain, div erticulitis, colitis, bowel obstruction, as well as others were considered MEDICAL DECISION MAKING: This is an 82-year-old female presents emergency department due to concern for increased weakness, back pain, and recent urinary symptoms. Patient was afebrile and vital signs stable despite being mildly ill-appearing on exam. Labs drawn and sent, IV established, EKG and chest x-ray performed at bedside and interpreted by me and patient monitored on telemetry. She was started on IV fluids due to clinical dehydration. There was a delay in obtaining all of patient's blood work as a chemistry machine was down in the lab for quite some time during the patient's ER visit. Ultimately patient's urine was not strongly suggestive of infection. Patient was sent for CT imaging which did not reveal any obstructive uropathy but did reveal bilateral perinephric inflammatory changes. Patient found to have leukopenia and thrombocytopenia and was positive for anaplasmosis. She had initially been given empiric IV cefepime due to concern for a sending UTI/pyelonephritis. Upon noting the positive anaplasmosis doxycycline was also given. Patient found to have hyperglycemia although no evidence of DKA. Patient found to have an elevated troponin, this was repeated as it did not fit with the clinical picture and was still elevated although mildly improved. It is unclear if this is secondary to current infection or dehydration additionally. Patient with no significant cardiac history. Chest x-ray read by radiology as concerning for evolving congestive changes so IV fluids were slowed. Patient continued on maintenance IV fluids, mildly elevated lactic acid on initial draw did improve on recheck and I suspect was secondary to dehydration. I do not suspect sepsis at this time despite elevated procalcitonin. Patient updated on all results. Unfortunately she was noted to be mildly hypoxic at 89% and had increased weakness with attempts at walking. No other changes to suggest overt CHF. Given clinical picture, case discussed with hospitalist for additional evaluation and management. Consultation(s): 1720: Discussed with Dr. Johnston. ER Treatment Provided: See below 1636: Patient with significant difficulty ambulating to the bathroom even with two-person assist, and was incontinent of urine. Patient noted at rest even prior to ambulation to be hypoxic at 89%. 2 L via nasal cannula applied. Diagnostics Interpreted By Me: -ECG: Normal sinus at 83, normal axis, normal intervals, PACs noted, nonspecific ST/T wave change -Cardiac Monitoring: An order was placed for continuous cardiac monitoring. The monitor shows a rate of 82 with normal sinus rhythm. -Laboratory studies: As stated above and show below. -Imaging studies: X-ray Chest: A single view study of the chest was reviewed and was negative for cardiomegaly, focal infiltrate, effusion, or wide mediastinum. Appearance of mild bilateral pulmonary edema. 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 Per records Obstructive sleep apnea Could not tolerate device Osteopenia after menopause Type 2 diabetes mellitus with peripheral neuropathy IDDM Surgical History H/O tubal ligation History of ankle surgery Left History of cataract surgery R/L History of colonoscopy History of tooth extraction Status post right partial knee replacement Family History Father Stroke Mother Diabetes Grandmother (Maternal) Diabetes Denies family history of Ovarian cancer Prostate cancer Myocardial infarction Breast cancer Lung cancer Colorectal cancer Social History Smoking Status: Never smoker Second Hand Exposure: No; Do You Dip or Chew Tobacco: No; Hx Alcohol Use: No Hx Substance Use: No Preferred Language: Welsh Communication Ability: Effective Visual Impairment: Limited Hearing Ability: Use of Hearing Aid Dog Sitter Required: No Beliefs That Will Affect Care: None marital status: / Current Living Situation: Alone Current Living Situation Comment: Grandson in a nearby apartment current occupational status: retired How many Children do You have: 3 Other Information That Helps Us Care for You: No Feels Safe at Home: Yes Childhood Exposure to Second-Hand Smoke: No caffeine: Yes Dental Care, Regularly: Yes Physical Activity Frequency: 1-2 Times per Week Seatbelt Use: always Sunscreen Use: Yes Assistive Devices: Cane, Glasses and Hearing Aid - Bilateral Allergies Allergies Allergy/AdvReac Type Severity Reaction Status Date / Time No Known Allergies Allergy Verified 01/06/23 17:22 Home Meds Home Medications Medication Instructions Recorded Confirmed calcium carbonate 600 mg calcium 600 mg PO QAM 03/08/19 01/06/23 (1,500 mg) tablet multivitamin 1 tab PO QAM 04/13/19 01/06/23 pen needle, diabetic 32 gauge x 10/15/22 01/06/2332" (BD Ultra-Fine Marquita Pen Needle) Previous Rx's Medication Instructions Recorded FreeStyle Lite Meter #1 ea 12/30/20 (blood-glucose meter) lancets 28 gauge (FreeStyle #200 ea 04/15/21 Lancets) simvastatin 10 mg tablet See Rx Instructions .Route 04/02/22 .COMPLEX #90 tabs amlodipine 5 mg-benazepril 10 mg See Rx Instructions .Route 06/09/22 capsule .COMPLEX #90 caps insulin aspar prot-insulin aspart See Rx Instructions subcut DAILY 11/24/22 100 unit/mL (70-30) subcutaneous #15 mL pen (Novolog Mix 70-30FlexPen U-100) metformin 500 mg tablet,extended 500 mg PO DAILY #90 tabs 12/28/22 release 24 hr Results & Data (ED) Vital Signs Vital Signs - 24 hr 01/06/23 12:00 01/06/23 12:00 01/06/23 12:00 Pulse Rate 86 Pulse Rate [Apical] Pulse Rate from SpO2 Sensor 86 Respiratory Rate 23 Blood Pressure 107/59 L Blood Pressure Mean 84 Pulse Oximetry 94 95 Oxygen Delivery Method Room Air 01/06/23 12:30 01/06/23 12:30 01/06/23 13:00 Pulse Rate 84 Pulse Rate [Apical] Pulse Rate from SpO2 Sensor 84 Respiratory Rate 27 H Blood Pressure 120/62 134/72 Blood Pressure Mean 85 103 Pulse Oximetry 95 Oxygen Delivery Method 01/06/23 13:00 01/06/23 13:30 01/06/23 16:54 Pulse Rate 91 H 88 Pulse Rate [Apical] 88 Pulse Rate from SpO2 Sensor 91 H 88 Respiratory Rate 24 28 H 22 Blood Pressure Blood Pressure Mean Pulse Oximetry 92 94 89 L Oxygen Delivery Method Room Air 01/06/23 16:44 Pulse Rate 84 Pulse Rate [Apical] Pulse Rate from SpO2 Sensor Respiratory Rate Blood Pressure Blood Pressure Mean Pulse Oximetry Oxygen Delivery Method Laboratory Data 01/06/23 11:08 01/06/23 11:08 Lab Results 01/06/23 01/06/23 01/06/23 Range/Units 11:08 11:08 11:08 WBC 2.89 L (4.8-10.8) K/ul RBC 4.18 L (4.20-5.40) M/uL Hgb 12.8 (12.0-16.0) g/dl Hct 36.7 L (37.0-47.0) % MCV 87.8 (80.0-100.0) fL MCH 30.6 (25.0-34.0) pg MCHC 34.9 (32.0-36.0) g/dL RDW Std Deviation 45.1 (36.4-46.3) fL RDW Coeff of Trena 14.0 (11.5-14.5) % Plt Count 95 L (130-400) K/uL MPV 13.1 H (9.4-12.4) fL Immature Gran % (Auto) 1.0 % Neut % (Auto) 89.4 % Lymph % (Auto) 6.2 % [place] % (Auto) 3.1 % Eos % (Auto) 0.0 % Baso % (Auto) 0.3 % Neut # (Auto) 2.58 (1.40-6.50) K/uL Lymph # (Auto) 0.18 L (1.2-3.4) K/uL [place] # (Auto) 0.09 L (0.11-0.59) K/uL Eos # (Auto) 0.00 (0-0.50) K/uL Baso # (Auto) 0.01 (0-0.2) K/uL Immature Gran # (Auto) 0.03 (0.01-0.20) K/uL Platelet Estimate Decreased L (Normal) Peripher Smr Path Cons Sodium 133 L (136-145) mmol/L Potassium 3.8 (3.5-5.1) mmol/L Chloride 99 (98-107) mmol/L Carbon Dioxide 24 (21-32) mmol/L Anion Gap 10 (3-11) BUN 24 H (6-23) mg/dl Creatinine 1.16 (0.6-1.2) mg/dl Est Cr Clr Drug Dosing 39.6 ml/min Est GFR ( Amer) 50.4 ml/min Est GFR (Non-Af Amer) 43.5 ml/min BUN/Creatinine Ratio 20.7 H (10-20) Glucose 289 H (70-99(Fasting)) mg/dl Lactate 2.2 H* (0.4-2.0) mmol/L Calcium 8.8 (8.6-10.3) mg/dl Magnesium 1.7 (1.7-2.4) mg/dl Total Bilirubin 0.5 (0.2-1.0) mg/dl Direct Bilirubin 0.2 (0-0.2) mg/dl AST 56 H (13-39) U/L ALT 45 (7-52) U/L Alkaline Phosphatase 73 (34-104) U/L Troponin I High Sens 52.7 H* (0-14) pg/ml Total Protein 6.6 (6.0-8.3) gm/dl Albumin 3.9 (3.4-5.0) gm/dl Procalcitonin (0-0.5) ng/ml Urine Color Urine Appearance (Clear) Urine pH (4.5-7.5) Ur Specific [place] (1.000-1.030) Urine Protein (Negative) Urine Glucose (UA) (Negative) Urine Ketones (Negative) Urine Blood (Negative) Urine Nitrite (Negative) Urine Bilirubin (Negative) Urine Urobilinogen (Negative) Ur Leukocyte Esterase (Negative) Urine RBC Urine WBC Ur Epithelial Cells Urine Bacteria Hyaline Casts Anaplasma Smear See Comment A Anaplasma Comment Pos for Anaplasma SARS-CoV-2 (PCR) (Negative) Influenza Type A (PCR) (Neg) Influenza Type B (PCR) (Neg) RSV (RT-PCR) (Neg) 01/06/23 01/06/23 01/06/23 Range/Units 11:08 11:15 13:17 WBC (4.8-10.8) K/ul RBC (4.20-5.40) M/uL Hgb (12.0-16.0) g/dl Hct (37.0-47.0) % MCV (80.0-100.0) fL MCH (25.0-34.0) pg MCHC (32.0-36.0) g/dL RDW Std Deviation (36.4-46.3) fL RDW Coeff of Trena (11.5-14.5) % Plt Count (130-400) K/uL MPV (9.4-12.4) fL Immature Gran % (Auto) % Neut % (Auto) % Lymph % (Auto) % [place] % (Auto) % Eos % (Auto) % Baso % (Auto) % Neut # (Auto) (1.40-6.50) K/uL Lymph # (Auto) (1.2-3.4) K/uL [place] # (Auto) (0.11-0.59) K/uL Eos # (Auto) (0-0.50) K/uL Baso # (Auto) (0-0.2) K/uL Immature Gran # (Auto) (0.01-0.20) K/uL Platelet Estimate (Normal) Peripher Smr Path Cons Sodium (136-145) mmol/L Potassium (3.5-5.1) mmol/L Chloride (98-107) mmol/L Carbon Dioxide (21-32) mmol/L Anion Gap (3-11) BUN (6-23) mg/dl Creatinine (0.6-1.2) mg/dl Est Cr Clr Drug Dosing ml/min Est GFR ( Amer) ml/min Est GFR (Non-Af Amer) ml/min BUN/Creatinine Ratio (10-20) Glucose (70-99(Fasting)) mg/dl Lactate 1.8 (0.4-2.0) mmol/L Calcium (8.6-10.3) mg/dl Magnesium (1.7-2.4) mg/dl Total Bilirubin (0.2-1.0) mg/dl Direct Bilirubin (0-0.2) mg/dl AST (13-39) U/L ALT (7-52) U/L Alkaline Phosphatase (34-104) U/L Troponin I High Sens (0-14) pg/ml Total Protein (6.0-8.3) gm/dl Albumin (3.4-5.0) gm/dl Procalcitonin 1.25 H (0-0.5) ng/ml Urine Color Yellow Urine Appearance Clear (Clear) Urine pH 5.5 (4.5-7.5) Ur Specific [place] >= 1.030 (1.000-1.030) Urine Protein 3+ H (Negative) Urine Glucose (UA) 3+ H (Negative) Urine Ketones 2+ H (Negative) Urine Blood Negative (Negative) Urine Nitrite Negative (Negative) Urine Bilirubin Negative (Negative) Urine Urobilinogen Negative (Negative) Ur Leukocyte Esterase Negative (Negative) Urine RBC Cancelled Urine WBC Cancelled Ur Epithelial Cells Cancelled Urine Bacteria Cancelled Hyaline Casts Cancelled Anaplasma Smear Anaplasma Comment SARS-CoV-2 (PCR) (Negative) Influenza Type A (PCR) (Neg) Influenza Type B (PCR) (Neg) RSV (RT-PCR) (Neg) 01/06/23 01/06/23 Range/Units 15:22 16:58 WBC (4.8-10.8) K/ul RBC (4.20-5.40) M/uL Hgb (12.0-16.0) g/dl Hct (37.0-47.0) % MCV (80.0-100.0) fL MCH (25.0-34.0) pg MCHC (32.0-36.0) g/dL RDW Std Deviation (36.4-46.3) fL RDW Coeff of Trena (11.5-14.5) % Plt Count (130-400) K/uL MPV (9.4-12.4) fL Immature Gran % (Auto) % Neut % (Auto) % Lymph % (Auto) % [place] % (Auto) % Eos % (Auto) % Baso % (Auto) % Neut # (Auto) (1.40-6.50) K/uL Lymph # (Auto) (1.2-3.4) K/uL [place] # (Auto) (0.11-0.59) K/uL Eos # (Auto) (0-0.50) K/uL Baso # (Auto) (0-0.2) K/uL Immature Gran # (Auto) (0.01-0.20) K/uL Platelet Estimate (Normal) Peripher Smr Path Cons Sodium (136-145) mmol/L Potassium (3.5-5.1) mmol/L Chloride (98-107) mmol/L Carbon Dioxide (21-32) mmol/L Anion Gap (3-11) BUN (6-23) mg/dl Creatinine (0.6-1.2) mg/dl Est Cr Clr Drug Dosing ml/min Est GFR ( Amer) ml/min Est GFR (Non-Af Amer) ml/min BUN/Creatinine Ratio (10-20) Glucose (70-99(Fasting)) mg/dl Lactate (0.4-2.0) mmol/L Calcium (8.6-10.3) mg/dl Magnesium (1.7-2.4) mg/dl Total Bilirubin (0.2-1.0) mg/dl Direct Bilirubin (0-0.2) mg/dl AST (13-39) U/L ALT (7-52) U/L Alkaline Phosphatase (34-104) U/L Troponin I High Sens 46.8 H (0-14) pg/ml Total Protein (6.0-8.3) gm/dl Albumin (3.4-5.0) gm/dl Procalcitonin (0-0.5) ng/ml Urine Color Urine Appearance (Clear) Urine pH (4.5-7.5) Ur Specific [place] (1.000-1.030) Urine Protein (Negative) Urine Glucose (UA) (Negative) Urine Ketones (Negative) Urine Blood (Negative) Urine Nitrite (Negative) Urine Bilirubin (Negative) Urine Urobilinogen (Negative) Ur Leukocyte Esterase (Negative) Urine RBC Urine WBC Ur Epithelial Cells Urine Bacteria Hyaline Casts Anaplasma Smear Anaplasma Comment SARS-CoV-2 (PCR) NEGATIVE (Negative) Influenza Type A (PCR) Negative (Neg) Influenza Type B (PCR) Negative (Neg) RSV (RT-PCR) Negative (Neg) Administered Medications Amlodipine Besylate (Amlodipine Besylate 5 Mg Tab) 5 mg PO [facility] Stop: 02/06/23 08:59 Last Admin: 01/07/23 08:12 Dose: 5 mg Documented By: GABE Calcium Carbonate (Calcium Carbonate 1250mg Tab) 1,250 mg PO [facility]; Protocol Stop: 02/06/23 08:59 Last Admin: 01/07/23 08:13 Dose: 1,250 mg Documented By: GABE Doxycycline Hyclate (Doxycycline Hyclate 100 Mg Cap) 100 mg PO BID [facility] Stop: 01/21/23 08:59 Last Admin: 01/07/23 08:11 Dose: 100 mg Documented By: GABE Enalapril Maleate (Enalapril Maleate 10 Mg Tab) 10 mg PO QAM [facility] Stop: 02/06/23 08:59 Last Admin: 01/07/23 08:12 Dose: 10 mg Documented By: GABE Enoxaparin Sodium (Enoxaparin Inj 40 Mg/0.4 Ml Syr) 40 mg SQ Q24H [facility] Stop: 02/05/23 21:59 Last Admin: 01/06/23 22:28 Dose: 40 mg Documented By: DAVIS Ceftriaxone Sodium 2,000 mg/ (Dextrose) 70 mls @ 140 mls/hr IV Q24H [facility]; Protocol Stop: 01/16/23 21:59 Last Infusion: 01/06/23 23:09 Dose: 0 mls/hr Documented By: Admin: 01/06/23 22:28 Dose: 140 mls/hr Documented By: DAVIS Insulin Aspart (Insulin Aspart Per Unit Charge) 0 units SC ACHS [facility] Stop: 02/05/23 21:34 Last Admin: 01/07/23 08:47 Dose: Not Given Documented By: Admin: 01/06/23 22:27 Dose: 3 units Documented By: DAVIS Co-signed By: PARIS Insulin Glargine (Lantus Per Unit Charge) 5 units SQ BID [facility] Stop: 02/05/23 21:34 Last Admin: 01/07/23 08:48 Dose: 5 units Documented By: JANAE Co-signed By: GABE Admin: 01/06/23 22:26 Dose: 5 units Documented By: DAVIS Co-signed By: PARIS Simvastatin (Simvastatin 10 Mg Tab) 10 mg PO DAILY [facility] Stop: 02/06/23 08:59 Last Admin: 01/07/23 08:12 Dose: 10 mg Documented By: GABE Discontinued Medications Doxycycline Hyclate (Doxycycline Hyclate 100 Mg Cap) 100 mg PO NOW STA Stop: 01/06/23 13:12 Last Admin: 01/06/23 13:27 Dose: 100 mg Documented By: DIANE Sodium Chloride (Nss 1000ml) 1,000 mls @ 200 mls/hr IV .Q5H [facility] Stop: 02/05/23 10:44 Last Admin: 01/06/23 21:53 Dose: Not Given Documented By: Infusion: 01/06/23 21:51 Dose: 0 mls/hr Documented By: Admin: 01/06/23 18:58 Dose: 200 mls/hr Documented By: Infusion: 01/06/23 18:44 Dose: 0 mls/hr Documented By: Admin: 01/06/23 11:47 Dose: 200 mls/hr Documented By: DIANE Cefepime HCl (Maxipime) 2,000 mg in 20 mls @ 5 mls/min IV NOW STA; Protocol Stop: 01/06/23 12:35 Last Admin: 01/06/23 12:51 Dose: 5 mls/min Documented By: DIANE Acetaminophen (Ofirmev) 1,000 mg in 100 mls @ 400 mls/hr IV NOW STA Stop: 01/06/23 15:23 Last Infusion: 01/06/23 16:13 Dose: 0 mls/hr Documented By: Admin: 01/06/23 15:17 Dose: 400 mls/hr Documented By: OJ Ioversol (Optiray 320 100ml) 95 ml IV ONCE ONE Stop: 01/06/23 14:03 Last Admin: 01/06/23 14:03 Dose: 95 ml Documented By: MUNA Imaging Data Radiologist's Impression: Chest X-Ray 01/06/23 10:39 SINGLE VIEW CHEST CLINICAL HISTORY: Sepsis. FINDINGS: An AP, portable, upright chest radiograph is compared to study dated 12/05/2020. Correlation is made with chest CT dated 08/14/2007. The heart is enlarged noting atherosclerotic calcification of the thoracic aorta there is pulmonary vascular congestion. There is bibasilar scarring/atelectasis. No large pleural effusion or pneumothorax is seen. The skeletal structures are osteope lindsey. The bony thorax is grossly intact. IMPRESSION: Cardiomegaly with pulmonary vascular congestion. ACT 112: Negative or not required by law. Electronically signed by: Ronal Omer M.D. 01/06/2023 12:19 PM Abdomen/Pelvis CT 01/06/23 12:[address] WITH IV CONTRAST CT DOSE: 1263.55 mGy.cm HISTORY: Acute low back and abdominal pain urinary sx, L low back pain TECHNIQUE: Multiaxial CT images of the abdomen and pelvis were performed following the IV administration of 95 cc of Optiray, A dose lowering technique was utilized adhering to the principles of ALARA. COMPARISON STUDY: Chest radiograph of same day FINDINGS: Heart is mildly enlarged. Extensive coronary artery calcifications. Mild bibasilar atelectasis. No pneumatosis or pneumoperitoneum. The spleen, mildly atrophic pancreas and adrenal glands are unremarkable. Cholelithiasis without CT evidence of acute cholecystitis. 2.6 cm hypodense lesion of the left hepatic lobe with a few marginal subcentimeter calcifications. 1.5 cm hypodense lesion of the hepatic dome. Both of these lesions are favored to be benign. Patency of the hepatic and portal veins. 3.1 cm cyst of the superior pole left kidney. Mild bilateral perinephric stranding. Urinary bladder wall thickening with partial distention. Unremarkable uterus. Atherosclerosis of the aorta without aneurysm. No lymphadenopathy. Mild wall thickening of the distal esophagus with tiny hiatal hernia. Mild colonic fecal retention. No CT evidence of acute appendicitis. Unremarkable soft tissues. Degenerative changes of the spine, pelvis and hips. No acute fracture identified. IMPRESSION: 1. No bowel obstruction or bowel wall thickening. 2. Cholelithiasis. 3. Tiny hiatal hernia with mild nonspecific distal esophageal wall thickening. 4. No hydronephrosis. ACT 112: Negative or not required by law. The above report was generated using voice recognition software. It may contain grammatical, syntax or spelling errors. Electronically signed by: Moe Starkey M.D. 01/06/2023 2:53 PM Discharge Plan Visit Data Chief Complaint: Urinary Symptoms Stated Complaint: WEAKNESS, UNABLE TO URINATE, TIRED, BACK PAIN ED Provider: Carolyn Dalton Discharge Problem: Generalized weakness, Acute left-sided low back pain, Anaplasmosis, Hypoxia, Elevated troponin Patient Disposition: Admitted As Inpatient Discharge Instructions Interventions: ED Discharge Assessment Last Done: 01/06/23 21:32
[2023-01-06 12:49] LABS: Hematocrit (blood only) 36.7 % (37.0-47.0); Hemoglobin 12.8 g/dl (12.0-16.0); Mean Corpuscular Hemoglobin 30.6 pg (25.0-34.0); Mean Corpuscular Hgb Conc 34.9 g/dL (32.0-36.0); Mean Corpuscular Volume 87.8 fL (80.0-100.0); Mean Platelet Volume 13.1 fL (9.4-12.4); Platelet Count 95 K/uL (130-400); RDW Standard Deviation 45.1 fL (36.4-46.3); Red Blood Count 4.18 M/uL (4.20-5.40); White Blood Count 2.89 K/ul (4.8-10.8)
[2023-01-06 12:52] LABS: Basophils # (auto) 0.01 K/uL (0-0.2); Basophils % (auto) 0.3 %; Immature Granulocytes # (auto) 0.03 K/uL (0.01-0.20); Lymphocytes # (auto) 0.18 K/uL (1.2-3.4); Lymphocytes % (auto) 6.2 %; Monocytes # (auto) 0.09 K/uL (0.11-0.59); Monocytes % (auto) 3.1 %; Neutrophils # (auto) 2.58 K/uL (1.40-6.50); Neutrophils % (auto) 89.4 %; Platelet Estimate Decreased (Normal)
[2023-01-06] MEDS ORDERED: DOXYCYCLINE HYCLATE 100 MG CAP PO STA (13:11)
[2023-01-06 13:18] LABS: Albumin Level 3.9 gm/dl (3.4-5.0); Bilirubin Direct 0.2 mg/dl (0-0.2); Bilirubin,Total 0.5 mg/dl (0.2-1.0); Calcium 8.8 mg/dl (8.6-10.3); Magnesium 1.7 mg/dl (1.7-2.4); Potassium 3.8 mmol/L (3.5-5.1)
[2023-01-06 13:47] LABS: Troponin I High Sensitivity 52.7 pg/ml (0-14)
[2023-01-06 13:49] LABS: Creatinine Clr Calc Pharmacy 39.6 ml/min; Est GFR (African American) 50.4 ml/min; Est GFR (Non-African American) 43.5 ml/min
[2023-01-06 13:50] LABS: Total Protein 6.6 gm/dl (6.0-8.3)
[2023-01-06 13:51] LABS: BUN Creatinine Ratio 20.7 (10-20)
[2023-01-06] MEDS ORDERED: OPTIRAY 320 100ml IV ONE (14:02)
--- NOTE | 2023-01-06 14:55 | CT Scan Report ---
ABDOMEN AND PELVIS CT WITH IV CONTRAST CT DOSE: 1263.55 mGy.cm HISTORY: Acute low back and abdominal pain urinary sx, L low back pain TECHNIQUE: Multiaxial CT images of the abdomen and pelvis were performed following the IV administrat ion of 95 cc of Optiray, A dose lowering technique was utilized adhering to the principles of ALARA. COMPARISON STUDY: Chest radiograph of same day FINDINGS: Heart is mildly enlarged. Extensive coronary artery calcifications. Mild bibasilar atelecta sis. No pneumatosis or pneumoperitoneum. The spleen, mildly atrophic pancreas and adrenal glands are unremarkable. Cholelithiasis without CT evidence of acute cholecystitis. 2.6 cm hypodense lesion of t he left hepatic lobe with a few marginal subcentimeter calcifications. 1.5 cm hypodense lesion of the hepatic dome. Both of these lesions are favored to be benign. Patency of the hepatic and portal vein s. 3.1 cm cyst of the superior pole left kidney. Mild bilateral perinephric stranding. Urinary bladder w all thickening with partial distention. Unremarkable uterus. Atherosclerosis of the aorta without ane urysm. No lymphadenopathy. Mild wall thickening of the distal esophagus with tiny hiatal hernia. Mild colonic fecal retention. No CT evidence of acute appendicitis. Unremarkable soft tissues. Degenerati ve changes of the spine, pelvis and hips. No acute fracture identified. IMPRESSION: 1. No bowel obstruction or bowel wall thickening. 2. Cholelithiasis. 3. Tiny hiatal hernia with mild nonspecific distal esophageal wall thickening. 4. No hydronephrosis. ACT 112: Negative or not required by law. The above report was generated using voice recognition software. It may contain grammatical, syntax o r spelling errors. Electronically signed by: Moe Starkey M.D. 01/06/2023 2:53 PM
[2023-01-06] MEDS ORDERED: ACETAMINOPHEN 1,000 MG/100 ML VIAL IV STA (15:09)
--- NOTE | 2023-01-06 17:21 | History & Physical Report ---
Date of Service January 06, 2023 Assessment & Plan (1) Anaplasmosis: Plan: Urinary tract infection CTA/P: 3.1 cm superior left kidney pole cyst. Mild bilateral perinephric stranding. Urinary bladder wall thickening with partial distention. No hydronephrosis is noted. No bowel obstruction or bowel thickening. General hiatal hernia with mild nonspecific distal esophageal wall thickening is noted CXR: Pulmonary vascular congestion UA negative for leukocyte esterase, blood. Ketone positive, glucose positive. Serum BSG 289 No prior UCx is available for review Given urinary symptoms and fever with CT findings showing perinephric stranding and bladder wall thickening will treat for UTI currently with anaplasmosis treatment as below. 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 Continue Doxy 100 mg twice daily - CBC/CMP daily Acute hypoxic respiratory failure Desaturation to 8890 with pulmonary vascular congestion on x-ray No history of heart failure Troponin 52/46 on admission Defer additional aggressive fluids, obtain echo, trend troponins overnight. Suspect these are related to demand. EKG does not show any acute ischemic changes, QTc 446 - SPo@ goal 90% - IF persistent O2 --> lasix 20mg daily, deferred due to acute infection on admit Type II DM Insulin 70/30 converted to basal bolus while inpatient, weight based - Goal BSG 110-140 - Glucose checks AC/HS Hypertension Continue amlodipine. Benapril converted to enapril Hyperlipidemia Continue simvastatin 10 mg DVT prophylaxis: Lovenox Diet: Heart healthy Disposition: Medical telemetry while on cardiac eval and with evidence of congestion, downgrade if no evidence of CHF and troponin stable CODE STATUS: Full Code (2) UTI (urinary tract infection): (3) Type 2 diabetes mellitus with peripheral neuropathy: (4) Chronic low back pain: (5) Obstructive sleep apnea: (6) Hypertension: (7) Hyperlipidemia: History of Present Illness Primary Care Provider: Eduarod Dos Santos MD Fletcher Prasad is an 82-year-old female with a past medical history of lymphocytic plasmacytic colitis, hypertension, hyperlipidemia, DM 2 with retinopathy presents to the ER with fatigue, low back pain, and dysuria of approximately 3-4 days. Her symptoms began on Tuesday and she has had increasing fatigue, weakness, urinary frequency, and a temperature of 991 100.2 with fever and chills while at home. Q1H urine voids with burning last 3-4 days. Has R flank pain as well Has had chills/shakes Fever tuesday up to 100.2 MOstly back pain, no knee/shoulder pain Denies rashes and tick bites but lives in a wooden area No leg edema Denies orthopnea Denies any chest pain, chest pressure Shortness of breath with rapid exertional dyspnea/exercise intolerance No wheezing Medical History: Reviewed Medications: Reviewed Surgical History: Reviewed Family history: Reviewed Allergies: Reviewed Social History: No tobacco use, no etoh use Code Status: Allergies Allergy/AdvReac Type Severity Reaction Status Date / Time No Known Allergies Allergy Verified 01/06/23 17:22 Home Medications Medication Instructions Recorded Confirmed Type calcium carbonate 600 mg calcium 600 mg PO QAM 03/08/19 01/06/23 History (1,500 mg) tablet multivitamin 1 tab PO QAM 04/13/19 01/06/23 History FreeStyle Lite Meter #1 ea 12/30/20 01/06/23 Rx (blood-glucose meter) lancets 28 gauge (FreeStyle #200 ea 04/15/21 01/06/23 Rx Lancets) simvastatin 10 mg tablet See Rx Instructions .Route 04/02/22 01/06/23 Rx .COMPLEX #90 tabs amlodipine 5 mg-benazepril 10 mg See Rx Instructions .Route 06/09/22 01/06/23 Rx capsule .COMPLEX #90 caps pen needle, diabetic 32 gauge x 10/15/22 01/06/23 History 5/32" (BD Ultra-Fine Marquita Pen Needle) insulin aspar prot-insulin aspart See Rx Instructions subcut DAILY 11/24/22 01/06/23 Rx 100 unit/mL (70-30) subcutaneous #15 mL pen (Novolog Mix 70-30FlexPen U-100) metformin 500 mg tablet,extended 500 mg PO DAILY #90 tabs 12/28/22 01/06/23 Rx release 24 hr Past Med/Surg History Medical History Chronic low back pain Diabetic retinopathy Encounter for pre-operative examination Gastroparesis Generalized osteoarthritis GERD (gastroesophageal reflux disease) controlled Hyperlipidemia Hypertension 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 Per records Obstructive sleep apnea Could not tolerate device Osteopenia after menopause Type 2 diabetes mellitus with peripheral neuropathy IDDM Surgical History H/O tubal ligation History of ankle surgery Left History of cataract surgery R/L History of colonoscopy History of tooth extraction Status post right partial knee replacement Family History Father Stroke Mother Diabetes Grandmother (Maternal) Diabetes Denies family history of Ovarian cancer Prostate cancer Myocardial infarction Breast cancer Lung cancer Colorectal cancer Social History Smoking Status: Never smoker Second Hand Exposure: No; Do You Dip or Chew Tobacco: No; Hx Alcohol Use: No Hx Substance Use: No Preferred Language: Mauritian Communication Ability: Effective Visual Impairment: Limited Hearing Ability: Use of Hearing Aid Community Integration Specialist Required: No Beliefs That Will Affect Care: None marital status: / Current Living Situation: Alone current occupational status: retired How many Children do You have: 3 Feels Safe at Home: Yes Childhood Exposure to Second-Hand Smoke: No caffeine: Yes Dental Care, Regularly: Yes Physical Activity Frequency: 1-2 Times per Week Seatbelt Use: always Sunscreen Use: Yes Assistive Devices: Walker Review of Systems Review of Systems: All systems reviewed & are unremarkable except as noted in HPI & below Physical Exam Physical Exam: General: A&Ox3. NAD. Cooperative. HEENT: Atraumatic, normocephalic. Vision/hearing intact. Pulm: +soft crackles bilaterally. No rales, -wheezes, -rales, -rhonchi. Symmetrical chest rise. No increased work of breathing. No respiratory distress. Cardiac: RRR, -mrg. Radial pulses intact and symmetrical. Abdominal: Nontender, nondistended, soft. BS present. Ext: no rash. moves all extremities equally, Results & Data Results & Data Vital Signs (Past 12 Hours) Vital Signs Temp Pulse Pulse Resp BP Pulse Ox O2 Del Method 06/08/23 16:54 88 22 89 L Room Air 01/06/23 13:30 88 28 H 94 01/06/23 13:00 91 H 24 92 01/06/23 13:00 134/72 01/06/23 12:30 84 27 H 95 01/06/23 12:30 120/62 01/06/23 12:00 107/59 L 01/06/23 12:00 86 23 95 01/06/23 11:45 79 26 H 93 01/06/23 11:44 103/56 L 01/06/23 12:00 94 Room Air 01/06/23 11:47 80 01/06/23 10:30 36.8 C 89 18 99/56 L 98 Room Air PG Care Time/CCT Total # of Minutes Spent Total Time Spent with Patient: Total time spent is greater than 50% in coordination of care (as documented) at patient's floor/unit and/or counseling patient: Coding Level of Care Code 82254 INT INP/OBS CARE 375MIN Diagnoses Anaplasmosis A77.49 UTI (urinary tract infection) N39.0 Type 2 diabetes mellitus with peripheral neuropathy E11.42 Chronic low back pain M54.5; G89.29 Obstructive sleep apnea G47.33 Hypertension I10 Hyperlipidemia E78.2 Hyperlipidemia type: mixed hyperlipidemia (7) Hyperlipidemia Hyperlipidemia type: mixed hyperlipidemia Qualified Code(s): E78.2 - Mixed hyperlipidemia
[2023-01-06 17:56] LABS: Influenza A virus by PCR Negative (Neg); Influenza B virus by PCR Negative (Neg); RSV by PCR Negative (Neg); SARS CoV2 RNA(COVID-19) Ceph NEGATIVE (Negative)
[2023-01-06] MEDS ORDERED: GLUCAGON FOR INJ 1 MG VIAL SQ PRN (21:33)
[2023-01-06] MEDS ORDERED: DEXTROSE 50% 50 ML SYRINGE IV PRN (21:33)
[2023-01-06] MEDS ORDERED: GLUCOSE 40% GEL 15 GM TUBE PO PRN (21:33)
[2023-01-06] MEDS ORDERED: GLUCOSE 10 TAB/TUBE PO PRN (21:33)
[2023-01-06] MEDS ORDERED: CARBOHYDRATES FOR HYPOGLYCEMIA PO PRN (21:33)
[2023-01-06] MEDS ORDERED: cefTRIAXone SODIUM 2,000 MG in DEXTROSE 5% 50 ML IV SCH (22:00)
[2023-01-06] MEDS: LANTUS PER UNIT CHARGE SQ SCH (22:26)
[2023-01-06] MEDS: INSULIN ASPART PER UNIT CHARGE SC SCH (22:27)
[2023-01-06] MEDS: ENOXAPARIN INJ 40 MG/0.4 ML SYR SQ SCH (22:28)
[2023-01-07 01:39] LABS: Albumin Globulin Ratio 1.5 (0.9-2); Albumin Level 3.2 gm/dl (3.4-5.0); BUN Creatinine Ratio 27.8 (10-20); Bilirubin,Total 0.3 mg/dl (0.2-1.0); Calcium 8.2 mg/dl (8.6-10.3); Creatinine Clr Calc Pharmacy 61.9 ml/min; Est GFR (African American) 89.8 ml/min; Est GFR (Non-African American) 77.4 ml/min; Globulin 2.2 gm/dl (2.5-4.0); Potassium 3.5 mmol/L (3.5-5.1); Total Protein 5.4 gm/dl (6.0-8.3)
[2023-01-07 01:59] LABS: Acanthocytes 1+; Hematocrit (blood only) 32.4 % (37.0-47.0); Hemoglobin 11.3 g/dl (12.0-16.0); Immature Granulocytes # (auto) 0.02 K/uL (0.01-0.20); Immature Granulocytes % (auto) 1.1 %; Lymphocytes # (auto) 0.33 K/uL (1.2-3.4); Lymphocytes % (auto) 17.9 %; Mean Corpuscular Hgb Conc 34.9 g/dL (32.0-36.0); Mean Corpuscular Volume 88.8 fL (80.0-100.0); Mean Platelet Volume 13.6 fL (9.4-12.4); Monocytes # (auto) 0.13 K/uL (0.11-0.59); Monocytes % (auto) 7.1 %; Neutrophils # (auto) 1.36 K/uL (1.40-6.50); Neutrophils % (auto) 73.9 %; Platelet Count 65 K/uL (130-400); RDW Coefficient of Variation 14.1 % (11.5-14.5); RDW Standard Deviation 45.8 fL (36.4-46.3); Red Blood Count 3.65 M/uL (4.20-5.40); White Blood Count 1.84 K/ul (4.8-10.8)
[2023-01-07] MEDS: DOXYCYCLINE HYCLATE 100 MG CAP PO SCH ×2 (08:11→21:04)
[2023-01-07] MEDS: SIMVASTATIN 10 MG TAB PO SCH (08:12)
[2023-01-07] MEDS: CALCIUM CARBONATE 1250MG TAB PO SCH (08:13)
[2023-01-07 08:32] LABS: Anaplasmosis Smear(Rpt to DOH) Pos for Anaplasma
[2023-01-07] MEDS: INSULIN ASPART PER UNIT CHARGE SC SCH ×4 (08:47→21:04)
[2023-01-07] MEDS: LANTUS PER UNIT CHARGE SQ SCH ×2 (08:48→21:04)
[2023-01-07] MEDS ORDERED: ENALAPRIL MALEATE 10 MG TAB PO SCH (09:00)
[2023-01-07] MEDS ORDERED: amLODIPine BESYLATE 5 MG TAB PO SCH (09:00)
[2023-01-07] MEDS: ACETAMINOPHEN 325 MG TAB PO PRN (12:09)
--- NOTE | 2023-01-07 12:25 | XCELERA ---
[id number] [id number]
--- NOTE | 2023-01-07 13:53 | Hospitalist Progress Note ---
Date of Service January 07, 2023 Assessment & Plan (1) Anaplasmosis: Plan: clinical symptoms/history, elevated AST, leukopenia, thrombocytopenia, and +anaplasmosis smear ALL c/w anaplasmosis infection cont doxycycline - plan 14 day course send Lyme titer as coinfection is common supportive care discussed dx, gave handout repeat all labs in am including a CPK given the diffuse myalgias (2) UTI (urinary tract infection): Plan: u/a was not suspicious for UTI (3+ protein only); neg LE, neg nitrites, etc urine cx negative no symptoms of UTI noted the CT findings of bladder/kidneys but all information together not c/w UTI stop rocephin her presentation at admission was likely all due to #1 above (3) Type 2 diabetes mellitus with peripheral neuropathy: Plan: uncontrolled adjust novolog increase lantus (4) Chronic low back pain: Plan: worse in the setting of myalgias from #1 above pain improved today follow (5) Obstructive sleep apnea: (6) Hypertension: Plan: cont amlodipine cont enalapril (7) Hyperlipidemia: Plan: cont simvastatin - only the AST was mildly high on LFTs (8) Dyspnea on exertion: Plan: CXR without acute findings lung bases on CT a/p without any ILD findings her lung exam is fairly unremarkable CT a/p shows "extensive" coronary artery calcifications she has numerous CAD risk factors (HTN, lipids, DM, etc) will recommend outpatient stress test after #1 resolves echo today noted - preserved EF, normal LV wall motion (9) Esophageal thickening: Plan: likely due to GERD start PPI would benefit from GI referral for consideration of EGD to ensure nothing else is going on in esophagus (10) Coronary artery calcification: Plan: seen on CT see above (11) Pancytopenia: Plan: likely 2nd to #1 above repeat CBC w/ diff in am (12) Elevated AST (SGOT): Plan: likely 2nd to #1 repeat in am add CPK level as well Plan DVT proph - lovenox daily consult PT given her weakness Admission and Anticipated Discharge Date Admission Date: January 06, 2023 Subjective patient states she was feeling very weak, tired, and achy this am upon awakening however, as the day went on, these symptoms did improve she is still quite fatigued and appetite is not that great denies any dysuria denies cough tele overnight wnl she reports chronic dyspnea on exertion denies dyspnea at rest denies orthopnea or PND she has never been told she has asthma or COPD denies family h/o CAD she also describes a "movement sensation" in her chest the way she describes it this could be reflux she is feeling denies excessive burping Review of Systems Review of Systems: gen - weak, fatigue cv - no chest pain pulm - chronic AL x several months GI - no pain; no vomiting Physical Exam Physical Exam: gen - NAD, looks tired but not toxic, awake, alert mouth - MMM neck - no JVD heart - RRR, s1 s2, no murmur lungs - scant dry rales bases otherwise CTA b/l abd - soft NT ND BS+; no splenomegaly ext - no edema, pulses 2+ b/l skin - no rash psych - a/o x 3 Results & Data Results & Data Vital Signs (Past 12 Hours) Vital Signs Temp Pulse Pulse Resp BP Pulse Ox O2 Del Method 01/07/23 11:53 37.0 C 75 18 148/78 H 90 Room Air 01/07/23 07:55 37.0 C 84 18 112/67 94 Room Air 01/07/23 03:15 36.7 C 80 18 119/67 95 Room Air Laboratory Results Laboratory Results - last 24 hr 01/06/23 01/06/23 01/06/23 11:08 15:22 16:58 WBC RBC Hgb Hct MCV MCH MCHC RDW Std Deviation RDW Coeff of Trena Plt Count MPV Immature Gran % (Auto) Neut % (Auto) Lymph % (Auto) Terry % (Auto) Eos % (Auto) Baso % (Auto) Neut # (Auto) Lymph # (Auto) Terry # (Auto) Eos # (Auto) Baso # (Auto) Immature Gran # (Auto) Acanthocytes (Spur) Peripher Smr Path Cons Sodium Potassium Chloride Carbon Dioxide Anion Gap BUN Creatinine Est Cr Clr Drug Dosing Est GFR ( Amer) Est GFR (Non-Af Amer) BUN/Creatinine Ratio Glucose POC Glucose Calcium Total Bilirubin AST ALT Alkaline Phosphatase Troponin I High Sens 46.8 H Total Protein Albumin Globulin Albumin/Globulin Ratio Anaplasma Comment Pos for Anaplasma SARS-CoV-2 (PCR) NEGATIVE Influenza Type A (PCR) Negative Influenza Type B (PCR) Negative RSV (RT-PCR) Negative 01/06/23 01/07/2301/07/23 21:37 01:07 01:07 WBC 1.84 L RBC 3.65 L Hgb 11.3 L Hct 32.4 L MCV 88.8 MCH 31.0 MCHC 34.9 RDW Std Deviation 45.8 RDW Coeff of Trena 14.1 Plt Count 65 L MPV 13.6 H Immature Gran % (Auto) 1.1 Neut % (Auto) 73.9 Lymph % (Auto) 17.9 Terry % (Auto) 7.1 Eos % (Auto) 0.0 Baso % (Auto) 0.0 Neut # (Auto) 1.36 L Lymph # (Auto) 0.33 L Terry # (Auto) 0.13 Eos # (Auto) 0.00 Baso # (Auto) 0.00 Immature Gran # (Auto) 0.02 Acanthocytes (Spur) 1+ Peripher Smr Path Cons Sodium Potassium Chloride Carbon Dioxide Anion Gap BUN Creatinine Est Cr Clr Drug Dosing Est GFR ( Amer) Est GFR (Non-Af Amer) BUN/Creatinine Ratio Glucose POC Glucose 281 H Calcium Total Bilirubin AST ALT Alkaline Phosphatase Troponin I High Sens 34.4 H D Total Protein Albumin Globulin Albumin/Globulin Ratio Anaplasma Comment SARS-CoV-2 (PCR) Influenza Type A (PCR) Influenza Type B (PCR) RSV (RT-PCR) 01/07/23 01/07/23 01/07/23 01:07 07:31 09:20 WBC RBC Hgb Hct MCV MCH MCHC RDW Std Deviation RDW Coeff of Trena Plt Count MPV Immature Gran % (Auto) Neut % (Auto) Lymph % (Auto) Terry % (Auto) Eos % (Auto) Baso % (Auto) Neut # (Auto) Lymph # (Auto) Terry # (Auto) Eos # (Auto) Baso # (Auto) Immature Gran # (Auto) Acanthocytes (Spur) Peripher Smr Path Cons Sodium 135 L Potassium 3.5 Chloride 106 Carbon Dioxide 21 Anion Gap 8 BUN 20 Creatinine 0.72 D Est Cr Clr Drug Dosing 61.9 Est GFR ( Amer) 89.8 Est GFR (Non-Af Amer) 77.4 BUN/Creatinine Ratio 27.8 H Glucose 186 H POC Glucose 106 H Calcium 8.2 L Total Bilirubin 0.3 AST 57 H ALT 44 Alkaline Phosphatase 66 Troponin I High Sens 27.5 H Total Protein 5.4 L Albumin 3.2 L Globulin 2.2 L Albumin/Globulin Ratio 1.5 Anaplasma Comment SARS-CoV-2 (PCR) Influenza Type A (PCR) Influenza Type B (PCR) RSV (RT-PCR) 01/07/23 11:35 WBC RBC Hgb Hct MCV MCH MCHC RDW Std Deviation RDW Coeff of Trena Plt Count MPV Immature Gran % (Auto) Neut % (Auto) Lymph % (Auto) Terry % (Auto) Eos % (Auto) Baso % (Auto) Neut # (Auto) Lymph # (Auto) Terry # (Auto) Eos # (Auto) Baso # (Auto) Immature Gran # (Auto) Acanthocytes (Spur) Peripher Smr Path Cons Sodium Potassium Chloride Carbon Dioxide Anion Gap BUN Creatinine Est Cr Clr Drug Dosing Est GFR ( Amer) Est GFR (Non-Af Amer) BUN/Creatinine Ratio Glucose POC Glucose 171 H Calcium Total Bilirubin AST ALT Alkaline Phosphatase Troponin I High Sens Total Protein Albumin Globulin Albumin/Globulin Ratio Anaplasma Comment SARS-CoV-2 (PCR) Influenza Type A (PCR) Influenza Type B (PCR) RSV (RT-PCR) PG Care Time/CCT Total # of Minutes Spent Total Time Spent with Patient: Total time spent is greater than 50% in coordination of care (as documented) at patient's floor/unit and/or counseling patient: Coding Level of Care Code 87386 SUB INP/OBS CARE 3/50MIN Diagnoses Anaplasmosis A77.49 UTI (urinary tract infection) N39.0 Type 2 diabetes mellitus with peripheral neuropathy E11.42 Chronic low back pain M54.5; G89.29 Obstructive sleep apnea G47.33 Hypertension I10 Hyperlipidemia E78.2 Hyperlipidemia type: mixed hyperlipidemia Dyspnea on exertion R06.09 Esophageal thickening K22.89 Coronary artery calcification I25.10; I25.84 Pancytopenia D61.818 Elevated AST (SGOT) R74.01 (7) Hyperlipidemia Hyperlipidemia type: mixed hyperlipidemia Qualified Code(s): E78.2 - Mixed hyperlipidemia
[2023-01-07] MEDS ORDERED: LANTUS PER UNIT CHARGE SQ SCH (21:00)
[2023-01-07] MEDS: ENOXAPARIN INJ 40 MG/0.4 ML SYR SQ SCH (21:05)
[2023-01-07] MEDS ORDERED: METOPROLOL TARTRATE 25 MG TAB PO ONE (22:13)
[2023-01-08] MEDS ORDERED: MELATONIN 3 MG TAB PO PRN (03:13)
[2023-01-08] MEDS: ACETAMINOPHEN 325 MG TAB PO PRN (03:20)
[2023-01-08 06:40] LABS: Calcium 8.3 mg/dl (8.6-10.3); Creatinine Clr Calc Pharmacy 79.7 ml/min; Est GFR (African American) 99.9 ml/min; Est GFR (Non-African American) 86.2 ml/min; Potassium 3.4 mmol/L (3.5-5.1)
[2023-01-08 07:09] LABS: Lyme Ab IgG w/WB Rflx Negative (Negative); Lyme Ab IgM w/WB Rflx Negative (Negative)
[2023-01-08 07:18] LABS: ALC (manual) 1.62 K/uL (1.2-3.4); ANC (manual) 2.46 K/uL (1.4-6.5); Hematocrit (blood only) 33.4 % (37.0-47.0); Hemoglobin 11.7 g/dl (12.0-16.0); Lymphocytes % (manual) 25 %; Mean Corpuscular Hemoglobin 30.4 pg (25.0-34.0); Mean Corpuscular Volume 86.8 fL (80.0-100.0); Monocytes # (manual) 0.26 K/uL (0.11-0.59); Monocytes % (manual) 6 %; Myelocytes # (manual) 0.04 K/uL (0-0); Myelocytes % (manual) 1 %; Neutrophils # (manual) 2.46 K/uL (1.40-6.50); Neutrophils % (manual) 56 %; Platelet Count 68 K/uL (130-400); RDW Standard Deviation 44.3 fL (36.4-46.3); Reactive Lymphocytes # (manual) 0.53 K/uL; Reactive Lymphocytes % (manual) 12 %; Red Blood Count 3.85 M/uL (4.20-5.40); White Blood Count 4.39 K/ul (4.8-10.8)
[2023-01-08] MEDS ORDERED: POTASSIUM CHLORIDE CRTAB 20 MEQ TABCR PO STA (07:28)
[2023-01-08] MEDS ORDERED: MAGNESIUM SULFATE / D5W 1 GM/100 ML BAG IV ONE (07:28)
[2023-01-08] MEDS ORDERED: SODIUM CHLORIDE 0.9% 1000ML 500 ML IV ONE (07:30)
[2023-01-08] MEDS ORDERED: dilTIAZem HCL 30 MG TAB PO ONE (07:30)
[2023-01-08] MEDS: PANTOprazole 40 MG TAB PO SCH (08:00)
[2023-01-08] MEDS: CALCIUM CARBONATE 1250MG TAB PO SCH (08:00)
[2023-01-08] MEDS: DOXYCYCLINE HYCLATE 100 MG CAP PO SCH (08:00)
[2023-01-08] MEDS: SIMVASTATIN 10 MG TAB PO SCH (08:11)
--- NOTE | 2023-01-08 09:17 | Hospitalist Progress Note ---
Date of Service January 08, 2023 Assessment & Plan (1) New onset atrial fibrillation: Plan: Patient converted to a.fib with RVR last pm. She has not been rate-controlled since it started. She has no prior h/o a.fib to her knowledge. She is asymptomatic from the a.fib. I suspect the stress of her anaplasmosis illness precipitated the a.fib. CHADsVASC score is a 5. Anticoagulation is advised. She had poor rate control with metoprolol (albeit the dose was very low) and she had a long pause that was likely vagally-mediated. (see #2 below) A dose of cardizem was given as her event unfolded. I spoke with Dr Chavez from [facility] who will formally consult and provide recommendations. However, he is likely to go with amiodarone for rate & rhythm control (she has only been in rapid a.fib for <18 hours). Ideally we initiate anticoagulation now given her CHADsVASC score of 5 but her platelets are low due to her anaplasmosis infection. This am I gave additional replacement for her low K and borderline low Mag level. Echo 01/07 with preserved EF and normal wall motion without significant valvular disease. TSH is wnl. She has been transferred to PCU for closer monitoring and for likely usage of IV amiodarone. (2) Sinus pause: Plan: The patient had a 6+ second pause this am. There were a few minor pauses immediately preceding the long pause. These pauses occurred while she was having difficulty swallowing her medications. Suspect the pause was vagally-mediated. I have consulted Dr Chavez from [facility] for further recommendations. (3) Anaplasmosis: Plan: clinical symptoms/history, elevated AST, leukopenia, thrombocytopenia, and +anaplasmosis smear ALL c/w anaplasmosis infection cont doxycycline - plan 14 day course - today is day #3 of Rx will change PO to IV formulation due to swallowing issues & likely esophagitis (esophageal thickening seen on CT scan). Lyme screen is negative CPK is normal WBC count has hit bottom and is trending up platelets have done the same repeat CBC in am repeat procal today (4) UTI (urinary tract infection): Plan: admission u/a was not suspicious for UTI (3+ protein only); neg LE, neg nitrites, etc urine cx negative no symptoms of UTI noted the CT findings of bladder/kidneys but all information together not c/w UTI stopped rocephin her presentation at admission was likely all due to #3 above (5) Dyspnea on exertion: Plan: chronic, present for about 3 months no dyspnea at rest no nocturnal symptoms denies associated chest pain/tightness CXR without acute findings lung bases on CT a/p without any ILD findings her lung exam is fairly unremarkable CT a/p shows "extensive" coronary artery calcifications she has numerous CAD risk factors (HTN, lipids, DM, etc) will recommend outpatient stress test after anaplasmosis resolves echo this admission with preserved EF, normal LV wall motion (6) Type 2 diabetes mellitus with peripheral neuropathy: Plan: uncontrolled a1c 8.9% has not had a hemoglobin a1c below 8% in 5+ years adjust novolog once again increase lantus again (7) Chronic low back pain: Plan: worse in the setting of myalgias from #1 above pain improved follow (8) Obstructive sleep apnea: (9) Hypertension: Plan: HOLD amlodipine and enalapril to allow more room for BP in the setting of rapid a.fib (10) Hyperlipidemia: Plan: cont simvastatin - only the AST was mildly high on LFTs and the AST is stable (11) Esophageal thickening: Plan: likely due to GERD started PPI add carafate qid would benefit from GI referral for consideration of EGD to ensure nothing else is going on in esophagus and in light of the dysphagia she has had for 12 months (12) Coronary artery calcification: Plan: seen on CT see above (13) Pancytopenia: Plan: likely 2nd to #3 above repeat CBC w/ diff in am (14) Elevated AST (SGOT): Plan: likely 2nd to #3 CPK level wnll (15) Hypokalemia: Plan: replace repeat level later in the day was normal mag level is normal repeat BMP tomorrow Plan DVT proph - stop lovenox if platelets rise to 75 or higher tomorrow plan to start Eliquis 5mg BID consult PT given her weakness complex care coordination including management of code purple, speaking with cardiology, treating rapid a.fib, etc total time today spent on care activities 85 minutes Admission and Anticipated Discharge Date Admission Date: January 06, 2023 Subjective patient developed rapid a.fib last night she was given PO metoprolol without any change in rates remained in a.fib the remainder of the night with rates >100 this am the patient took a K-dur supplement, cardizem PO, and another medication she had difficulty swallowing the medication the pills felt like they were lodged in the esophagus simultaneously on the heart monitor she had a 6+ second pause there were minor pauses just prior to the 6+ sec one code purple was called I immediately came to the bedside she was awake, alert, and able to answer questions she looked pale she reported that the pills had finally passed through the esophagus initial vitals when I arrived - HR>100, SBP 120s, O2 sats wnl 12-lead EKG obtained - a.fib with RVR, no ST changes she reported to me that she has had difficulty swallowing her medications for about 12 months large pills are quite problematic on exam her lungs were CTA b/l, heart revealed rate >100 and rhythm was irregularly irregular, and her abdomen was soft oral cavity was patent voice was clear and she had no stridor asked the lab to process a troponin from early this am and also a 2nd troponin at the time of the event preparations were made to transfer her to PCU with respect to her anaplasmosis she reports resolution of her myalgias appetite remains poor no dyspnea or cough no abd pain no chest pains Review of Systems Review of Systems: gen - no fever or chills cv - no chest pain or palpitations (she does not feel the a.fib) neuro - no dizziness or lightheadedness pulm - no wheezing or cough Physical Exam Physical Exam: gen - at time of presentation during her code purple she looked pale, weak; color improved over several minutes mouth - MMM neck - no JVD heart - irregularly irregular, tachy, s1 s2, no murmur lungs - CTA b/l abd - soft NT ND BS+; no splenomegaly ext - no edema, pulses 2+ b/l psych - a/o x 3 Results & Data Results & Data Vital Signs (Past 12 Hours) Vital Signs Temp Pulse Pulse Pulse Resp BP Pulse Ox 01/08/23 08:00 36.6 C 122 H 18 109/66 91 01/08/23 07:16 36.7 C 126 H 18 104/64 92 01/08/23 03:07 93 01/08/23 02:47 37.7 C H 142 H 18 124/66 89 L 01/08/23 01:28 152 H 01/07/23 23:09 01/07/23 22:50 138 H 18 166/92 H 94 O2 Del Method 01/08/23 08:00 Room Air 01/08/23 07:16 Room Air 01/08/23 03:07 Room Air 01/08/23 02:47 Room Air 01/08/23 01:28 01/07/23 23:09 Room Air 01/07/23 22:50 Room Air Laboratory Results Laboratory Results - last 24 hr 01/07/23 01/08/23 01/08/23 20:08 05:34 05:34 WBC 4.39 L RBC 3.85 L Hgb 11.7 L Hct 33.4 L MCV 86.8 MCH 30.4 MCHC 35.0 RDW Std Deviation 44.3 RDW Coeff of Trena 14.0 Plt Count 68 L Neutrophils % (Manual) 56 Lymphocytes % (Manual) 25 Reactive Lymphs % (Man) 12 Monocytes % (Manual) 6 Myelocytes % (Man) 1 Neutrophils # (Manual) 2.46 Total Absolute Neuts 2.46 Lymphocytes # (Manual) 1.10 L Reactive Lymphs # 0.53 Total Abs Lymphocytes 1.62 Monocytes # (Manual) 0.26 Myelocytes # (Manual) 0.04 H VBG pH VBG pCO2 VBG pO2 VBG HCO3 VBG O2 Saturation VBG Base Excess Sodium Potassium Chloride Carbon Dioxide Anion Gap BUN Creatinine Est Cr Clr Drug Dosing Est GFR ( Amer) Est GFR (Non-Af Amer) BUN/Creatinine Ratio Glucose POC Glucose 241 H Calcium Magnesium AST Total Creatine Kinase Troponin I High Sens Procalcitonin TSH Lyme Disease IgG Ab Negative Lyme Disease IgM Ab Negative 01/08/23 01/08/23 01/08/23 05:34 05:34 07:29 WBC RBC Hgb Hct MCV MCH MCHC RDW Std Deviation RDW Coeff of Trena Plt Count Neutrophils % (Manual) Lymphocytes % (Manual) Reactive Lymphs % (Man) Monocytes % (Manual) Myelocytes % (Man) Neutrophils # (Manual) Total Absolute Neuts Lymphocytes # (Manual) Reactive Lymphs # Total Abs Lymphocytes Monocytes # (Manual) Myelocytes # (Manual) VBG pH VBG pCO2 VBG pO2 VBG HCO3 VBG O2 Saturation VBG Base Excess Sodium 135 L Potassium 3.4 L Chloride 104 Carbon Dioxide 23 Anion Gap 8 BUN 14 Creatinine 0.56 L Est Cr Clr Drug Dosing 79.7 Est GFR ( Amer) 99.9 Est GFR (Non-Af Amer) 86.2 BUN/Creatinine Ratio 25.0 H Glucose 139 H POC Glucose 167 H Calcium 8.3 L Magnesium AST 49 H Total Creatine Kinase 47 Troponin I High Sens 27.2 H Procalcitonin TSH 2.207 Lyme Disease IgG Ab Lyme Disease IgM Ab 01/08/23 01/08/23 01/08/23 09:05 09:24 11:06 WBC RBC Hgb Hct MCV MCH MCHC RDW Std Deviation RDW Coeff of Trena Plt Count Neutrophils % (Manual) Lymphocytes % (Manual) Reactive Lymphs % (Man) Monocytes % (Manual) Myelocytes % (Man) Neutrophils # (Manual) Total Absolute Neuts Lymphocytes # (Manual) Reactive Lymphs # Total Abs Lymphocytes Monocytes # (Manual) Myelocytes # (Manual) VBG pH VBG pCO2 VBG pO2 VBG HCO3 VBG O2 Saturation VBG Base Excess Sodium Potassium Chloride Carbon Dioxide Anion Gap BUN Creatinine Est Cr Clr Drug Dosing Est GFR ( Amer) Est GFR (Non-Af Amer) BUN/Creatinine Ratio Glucose POC Glucose 148 H 199 H Calcium Magnesium AST Total Creatine Kinase Troponin I High Sens 20.5 H Procalcitonin TSH Lyme Disease IgG Ab Lyme Disease IgM Ab 01/08/23 01/08/23 01/08/23 15:57 15:58 16:52 WBC RBC Hgb Hct MCV MCH MCHC RDW Std Deviation RDW Coeff of Trena Plt Count Neutrophils % (Manual) Lymphocytes % (Manual) Reactive Lymphs % (Man) Monocytes % (Manual) Myelocytes % (Man) Neutrophils # (Manual) Total Absolute Neuts Lymphocytes # (Manual) Reactive Lymphs # Total Abs Lymphocytes Monocytes # (Manual) Myelocytes # (Manual) VBG pH VBG pCO2 VBG pO2 VBG HCO3 VBG O2 Saturation VBG Base Excess Sodium 133 L Potassium 4.0 Chloride 103 Carbon Dioxide 23 Anion Gap 7 BUN 16 Creatinine 0.68 Est Cr Clr Drug Dosing 65.6 Est GFR ( Amer) 93.8 Est GFR (Non-Af Amer) 80.9 BUN/Creatinine Ratio 23.5 H Glucose 325 H* POC Glucose 371 H* 443 H* Calcium 8.0 L Magnesium 1.7 AST Total Creatine Kinase Troponin I High Sens Procalcitonin TSH Lyme Disease IgG Ab Lyme Disease IgM Ab 01/08/23 16:52 WBC RBC Hgb Hct MCV MCH MCHC RDW Std Deviation RDW Coeff of Trena Plt Count Neutrophils % (Manual) Lymphocytes % (Manual) Reactive Lymphs % (Man) Monocytes % (Manual) Myelocytes % (Man) Neutrophils # (Manual) Total Absolute Neuts Lymphocytes # (Manual) Reactive Lymphs # Total Abs Lymphocytes Monocytes # (Manual) Myelocytes # (Manual) VBG pH 7.43 H VBG pCO2 35 L VBG pO2 52 VBG HCO3 23 VBG O2 Saturation 86.5 VBG Base Excess -0.6 Sodium Potassium Chloride Carbon Dioxide Anion Gap BUN Creatinine Est Cr Clr Drug Dosing Est GFR ( Amer) Est GFR (Non-Af Amer) BUN/Creatinine Ratio Glucose POC Glucose Calcium Magnesium AST Total Creatine Kinase Troponin I High Sens Procalcitonin TSH Lyme Disease IgG Ab Lyme Disease IgM Ab Diagnostic Findings EKG - my reading - rapid a.fib, no ST changes PG Care Time/CCT Total # of Minutes Spent Total Time Spent with Patient: Total time spent is greater than 50% in coordination of care (as documented) at patient's floor/unit and/or counseling patient: Prolonged Care Time Prolonged Care Time: Yes Total Prolonged Care Time: 85 Coding Level of Care Code 24536 SUB INP/OBS CARE 3/50MIN (25 - SIGNIFICANT, SEPARATELY IDENTIFIABLE ) Diagnoses New onset atrial fibrillation I48.91 Sinus pause I45.5 Anaplasmosis A77.49 UTI (urinary tract infection) N39.0 Dyspnea on exertion R06.09 Type 2 diabetes mellitus with peripheral neuropathy E11.42 Chronic low back pain M54.5; G89.29 Obstructive sleep apnea G47.33 Hypertension I10 Hyperlipidemia E78.2 Hyperlipidemia type: mixed hyperlipidemia Esophageal thickening K22.89 Coronary artery calcification I25.10; I25.84 Pancytopenia D61.818 Elevated AST (SGOT) R74.01 Hypokalemia E87.6 Additional Codes Prolonged Care Time - Prolonged Care Time: Yes ([id number]) (10) Hyperlipidemia Hyperlipidemia type: mixed hyperlipidemia Qualified Code(s): E78.2 - Mixed hyperlipidemia
[2023-01-08 09:23] LABS: Troponin I High Sensitivity 27.2 pg/ml (0-14)
[2023-01-08] MEDS: INSULIN ASPART PER UNIT CHARGE SC SCH ×4 (09:40→20:43)
[2023-01-08] MEDS: LANTUS PER UNIT CHARGE SQ SCH ×2 (09:58→20:43)
--- NOTE | 2023-01-08 11:11 | Cardiology Consultation ---
Date of Consultation January 08, 2023 Assessment & Plan (1) New onset atrial fibrillation: (2) Sinus pause: (3) Choking: (4) Elevated troponin: Plan ASSESSMENT/PLAN: 1. New onset atrial fibrillation: Symptomatic. May be due to her presenting illness of anaplasmosis. Cannot exclude paroxysmal atrial fibrillation as an outpatient however she does not recall having the symptoms in the past. Therefore, more likely a new diagnosis. Given that she is symptomatic, could consider trying to convert to sinus rhythm. This may occur spontaneously but while hospitalized, can start amiodarone. Will not likely need long-term therapy but clinical course can help decide. Anticoagulation for stroke risk reduction recommended when safe from a platelet standpoint. Given that she is within 48 hours of presentation, transesophageal echo not needed before trying to cardiovert with amiodarone. 2. Bradycardia with pauses: Likely due to increased vagal tone. She was in atrial fibrillation and became bradycardic with nausea and then choking on 3 pills. For now, can place transcutaneous pacer pads in case needed in the future. Try to avoid choking episodes. 3. Choking/dysphagia: Chronic issue but worsened episode today when trying to swallow 3 pills. Discussed with nursing staff. Try to avoid large pills. Suggest 1 pill at a time when she does have to swallow medications. Nursing staff plans on replacing potassium chloride tablets in the future with oral suspension if needed. Consider EGD in the future for this chronic issue and also esophageal thickening noted on CT scan. 4. Elevated troponin: She did not present with acute coronary syndrome. Elevated high-sensitivity troponin likely due to demand ischemia from her acute illness. Elevated troponin was present before A-fib. 5. Disposition: Cardiology will continue to follow. Dr. Layton will be avai lable starting tomorrow. Please call with questions or concerns. Patient care discussed with Dr. Morrow of the primary hospitalist service. Thank you for allowing me to participate in the care of your patient. Please call for any other questions or concerns. Sincerely, Robbie Chavez M.D. History of Present Illness Reason for Consultation: Atrial fibrillation with pauses Requesting Physician: Magdiel Morrow MD Attending Physician: Magdiel Morrow MD History of Present Illness Ms. Prasad is a very pleasant 82-year-old female with a history significant for type 2 diabetes, hypertension, dyslipidemia, and sleep apnea (did not tolerate CPAP). She was hospitalized on 01/06/2023 and diagnosed with anaplasmosis. She presented with myalgias, weakness back pain, low-grade fever and chills. She was noted to be in sinus rhythm on presentation but developed atrial fibrillation with rapid ventricular response on 01/07/2023 at 2116. She acknowledges that she felt palpitations and a general feeling of being unwell in her chest overnight and has not felt this in the past. She continues to feel palpitations somewhat but less significant. She has not had issues with swallowing for approximately 1 year and recalls being recommended by her PCP to undergo EGD but she declined. While here, she was nauseated after receiving doxycycline and then tried to swallow 3 pills, including potassium chloride. She joked worse than she typically does and had a near syncopal episode while in the midst of choking. On telemetry, her A-fib ventricular rate slowed down and became bradycardic and she had pauses of 6.7 and 6.9 seconds, before her heart rate recovered, following a choking episode. She denies a history of syncope or near syncope. Overall during this hospital stay, she feels improved. Her myalgias and weakness have lessened. She became pancytopenic compared to her baseline while here with anaplasmosis but today's values have improved somewhat compared to yesterday. Review of systems: As above. Review of systems otherwise negative/unremarkable. Family history: No known premature CAD. Social history: She denies tobacco, alcohol or drug abuse. She lives alone. . Her spouse approximately 15 years ago. 3 children however 1 in December 2021. She was unaccompanied in her hospital room. Allergies Allergy/AdvReac Type Severity Reaction Status Date / Time No Known Allergies Allergy Verified 01/06/23 17:22 Home Medications Medication Instructions Recorded Confirmed Type calcium carbonate 600 mg calcium 600 mg PO QAM 03/08/19 01/06/23 History (1,500 mg) tablet multivitamin 1 tab PO QAM 04/13/19 01/06/23 History FreeStyle Lite Meter #1 ea 12/30/20 01/06/23 Rx (blood-glucose meter) lancets 28 gauge (FreeStyle #200 ea 04/15/21 01/06/23 Rx Lancets) simvastatin 10 mg tablet See Rx Instructions .Route 04/02/22 01/06/23 Rx .COMPLEX #90 tabs amlodipine 5 mg-benazepril 10 mg See Rx Instructions .Route 06/09/22 01/06/23 Rx capsule .COMPLEX #90 caps pen needle, diabetic 32 gauge x 10/15/22 01/06/23 History 5/32" (BD Ultra-Fine Marquita Pen Needle) insulin aspar prot-insulin aspart See Rx Instructions subcut DAILY 11/24/22 01/06/23 Rx 100 unit/mL (70-30) subcutaneous #15 mL pen (Novolog Mix 70-30FlexPen U-100) metformin 500 mg tablet,extended 500 mg PO DAILY #90 tabs 12/28/22 01/06/23 Rx release 24 hr Patient History Medical History Chronic low back pain Diabetic retinopathy Encounter for pre-operative examination Gastroparesis Generalized osteoarthritis GERD (gastroesophageal reflux disease) controlled Hyperlipidemia Hypertension 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 Per records Obstructive sleep apnea Could not tolerate device Osteopenia after menopause Type 2 diabetes mellitus with peripheral neuropathy IDDM Surgical History H/O tubal ligation History of ankle surgery Left History of cataract surgery R/L History of colonoscopy History of tooth extraction Status post right partial knee replacement Family History Father Stroke Mother Diabetes Grandmother (Maternal) Diabetes Denies family history of Ovarian cancer Prostate cancer Myocardial infarction Breast cancer Lung cancer Colorectal cancer Social History Smoking Status: Never smoker Second Hand Exposure: No; Do You Dip or Chew Tobacco: No; Hx Alcohol Use: No Hx Substance Use: No Preferred Language: Kinyarwanda Communication Ability: Effective Visual Impairment: Limited Hearing Ability: Use of Hearing Aid Decatizer Required: No Beliefs That Will Affect Care: None marital status: / Current Living Situation: Alone Current Living Situation Comment: Grandson in a nearby apartment current occupational status: retired How many Children do You have: 3 Other Information That Helps Us Care for You: No Feels Safe at Home: Yes Childhood Exposure to Second-Hand Smoke: No caffeine: Yes Dental Care, Regularly: Yes Physical Activity Frequency: 1-2 Times per Week Seatbelt Use: always Sunscreen Use: Yes Assistive Devices: Cane Physical Exam Physical Exam: Gen.: No acute distress. Alert and oriented. HEENT: Anicteric sclera. Neck: No JVD. No bruits. Normal carotid upstrokes bilaterally. Cardiac: No ventricular heave. Irregularly irregular and mildly tachycardic. Normal S1-S2. No murmurs, rubs, or gallops. Pulmonary: Scant crackles in the left base but otherwise clear to auscultation bilaterally. Abdomen: Soft, nondistended, with normoactive bowel sounds. No bruits noted. Extremities: 2+ radial pulses bilaterally. 1+ posterior tibialis pulses bilaterally. No edema or cyanosis. Psychiatric: Affect appears appropriate. Results & Data Vital Signs (Past 12 Hours) Vital Signs Temp Pulse Pulse Pulse Resp BP Pulse Ox 01/08/23 10:00 119/61 01/08/23 10:00 123 H 01/08/23 08:00 36.6 C 122 H 18 109/66 91 01/08/23 07:16 36.7 C 126 H 18 104/64 92 01/08/23 03:07 93 01/08/23 02:47 37.7 C H 142 H 18 124/66 89 L 01/08/23 01:28 152 H 01/07/23 23:09 O2 Del Method 01/08/23 10:00 01/08/23 10:00 01/08/23 08:00 Room Air 01/08/23 07:16 Room Air 01/08/23 03:07 Room Air 01/08/23 02:47 Room Air 01/08/23 01:28 01/07/23 23:09 Room Air Intake & Output 01/06/23 01/07/23 01/08/23 01/09/23 06:59 06:59 06:59 06:59 Intake Total 1846.667 / 1846.667 600 / 600 500 / 500 Output Total 100 / 100 Balance 1846.667 / 1846.667 500 / 500 500 / 500 Weight 181 lb 3.52 oz 184 lb 8.43 oz Laboratory Results Laboratory Results - last 24 hr 01/07/23 01/07/23 01/07/23 11:35 14:01 16:41 WBC RBC Hgb Hct MCV MCH MCHC RDW Std Deviation RDW Coeff of Trena Plt Count Neutrophils % (Manual) Lymphocytes % (Manual) Reactive Lymphs % (Man) Monocytes % (Manual) Myelocytes % (Man) Neutrophils # (Manual) Total Absolute Neuts Lymphocytes # (Manual) Reactive Lymphs # Total Abs Lymphocytes Monocytes # (Manual) Myelocytes # (Manual) Sodium Potassium Chloride Carbon Dioxide Anion Gap BUN Creatinine Est Cr Clr Drug Dosing Est GFR ( Amer) Est GFR (Non-Af Amer) BUN/Creatinine Ratio Glucose POC Glucose 171 H 179 H Calcium AST Total Creatine Kinase Troponin I High Sens 26.5 H TSH Lyme Disease IgG Ab Lyme Disease IgM Ab 01/07/23 01/08/23 01/08/23 20:08 05:34 05:34 WBC 4.39 L RBC 3.85 L Hgb 11.7 L Hct 33.4 L MCV 86.8 MCH 30.4 MCHC 35.0 RDW Std Deviation 44.3 RDW Coeff of Trena 14.0 Plt Count 68 L Neutrophils % (Manual) 56 Lymphocytes % (Manual) 25 Reactive Lymphs % (Man) 12 Monocytes % (Manual) 6 Myelocytes % (Man) 1 Neutrophils # (Manual) 2.46 Total Absolute Neuts 2.46 Lymphocytes # (Manual) 1.10 L Reactive Lymphs # 0.53 Total Abs Lymphocytes 1.62 Monocytes # (Manual) 0.26 Myelocytes # (Manual) 0.04 H Sodium Potassium Chloride Carbon Dioxide Anion Gap BUN Creatinine Est Cr Clr Drug Dosing Est GFR ( Amer) Est GFR (Non-Af Amer) BUN/Creatinine Ratio Glucose POC Glucose 241 H Calcium AST Total Creatine Kinase Troponin I High Sens TSH Lyme Disease IgG Ab Negative Lyme Disease IgM Ab Negative 01/08/23 01/08/23 01/08/23 05:34 05:34 07:29 WBC RBC Hgb Hct MCV MCH MCHC RDW Std Deviation RDW Coeff of Trena Plt Count Neutrophils % (Manual) Lymphocytes % (Manual) Reactive Lymphs % (Man) Monocytes % (Manual) Myelocytes % (Man) Neutrophils # (Manual) Total Absolute Neuts Lymphocytes # (Manual) Reactive Lymphs # Total Abs Lymphocytes Monocytes # (Manual) Myelocytes # (Manual) Sodium 135 L Potassium 3.4 L Chloride 104 Carbon Dioxide 23 Anion Gap 8 BUN 14 Creatinine 0.56 L Est Cr Clr Drug Dosing 79.7 Est GFR ( Amer) 99.9 Est GFR (Non-Af Amer) 86.2 BUN/Creatinine Ratio 25.0 H Glucose 139 H POC Glucose 167 H Calcium 8.3 L AST 49 H Total Creatine Kinase 47 Troponin I High Sens 27.2 H TSH 2.207 Lyme Disease IgG Ab Lyme Disease IgM Ab 01/08/23 01/08/23 01/08/23 09:05 09:24 11:06 WBC RBC Hgb Hct MCV MCH MCHC RDW Std Deviation RDW Coeff of Trena Plt Count Neutrophils % (Manual) Lymphocytes % (Manual) Reactive Lymphs % (Man) Monocytes % (Manual) Myelocytes % (Man) Neutrophils # (Manual) Total Absolute Neuts Lymphocytes # (Manual) Reactive Lymphs # Total Abs Lymphocytes Monocytes # (Manual) Myelocytes # (Manual) Sodium Potassium Chloride Carbon Dioxide Anion Gap BUN Creatinine Est Cr Clr Drug Dosing Est GFR ( Amer) Est GFR (Non-Af Amer) BUN/Creatinine Ratio Glucose POC Glucose 148 H 199 H Calcium AST Total Creatine Kinase Troponin I High Sens 20.5 H TSH Lyme Disease IgG Ab Lyme Disease IgM Ab Diagnostic Findings Telemetry personally reviewed: Initially sinus rhythm and then developed A-fib on 01/07/2023 at 2116. Had a bradycardic episode this morning at 8:46 AM where her ventricular response slowed, and then she had pauses of 6.7 and 6.9 seconds before her heart rate improved. This correlated with nausea and choking episode according to nursing staff and primary hospitalist. Labs reviewed from 01/08/2023: Improving pancytopenia, stable renal function, mild hypokalemia, improving AST, normal TSH. High-sensitivity troponin was highest at 52.7 on presentation and has since trended downward. ECGs personally reviewed: ECG 01/08/2023 at 8:53 AM: A-fib RVR 119 bpm. ECG 01/07/2023 at 2206: A-fib RVR at 141 bpm. ECG 01/06/2023 at 10:56 AM: Sinus rhythm with PACs 83 bpm. Echo 01/07/2023: Normal LV size, wall motion, systolic function. EF 55 to 60%. Moderate LVH. Sclerotic aortic valve without significant stenosis. Mild MR. Normal RVSP. History and physical report reviewed. CT abdomen/pelvis 01/06/2023: Tiny hiatal hernia with mild nonspecific distal esophageal wall thickening per radiology. Chest x-ray personally reviewed from 01/06/2023: Prominent pulmonary vasculature. Per radiology, cardiomegaly with pulmonary vascular congestion and bibasilar scarring/atelectasis. Medications Administered Current Inpatient Medications Acetaminophen (Acetaminophen 325 Mg Tab) 650 mg PO Q4H PRN PRN Reason: Pain or Fever Stop: 02/05/23 21:32 Last Admin: 01/08/23 03:20 Dose: 650 mg Amlodipine Besylate (Amlodipine Besylate 5 Mg Tab) 5 mg PO QAM [facility] Stop: 02/06/23 08:59 Last Admin: 01/07/23 08:12 Dose: 5 mg Dextrose (Dextrose 50% 50 Ml Syringe) 25 - 50 ml IV UD PRN; Protocol PRN Reason: Hypoglycemia Protocol Stop: 02/05/23 21:32 Enalapril Maleate (Enalapril Maleate 10 Mg Tab) 10 mg PO QAM [facility] Stop: 02/06/23 08:59 Last Admin: 01/07/23 08:12 Dose: 10 mg Glucagon (Glucagon For Inj 1 Mg Vial) 1 mg SQ UD PRN; Protocol PRN Reason: Hypoglycemia Protocol Stop: 02/05/23 21:32 Glucose (Glucose 10 Tab/Tube) 4 - 8 tab PO UD PRN; Protocol PRN Reason: Hypoglycemia Treatment Stop: 02/05/23 21:32 Glucose (Glucose 40% Gel 15 Gm Tube) 15 - 30 gm PO UD PRN; Protocol PRN Reason: Hypoglycemia Protocol Stop: 02/05/23 21:32 Doxycycline Hyclate 100 mg/ (Dextrose) 110 mls @ 50 mls/hr IV Q12H [facility] Stop: 01/22/23 20:59 Insulin Aspart (Insulin Aspart Per Unit Charge) 0 units SC ACHS [facility] Stop: 02/05/23 21:34 Last Admin: 01/08/23 09:40 Dose: Not Given Insulin Glargine (Lantus Per Unit Charge) 6 units SQ BID [facility] Stop: 02/06/23 20:59 Last Admin: 01/08/23 09:58 Dose: 6 units Melatonin (Melatonin 3 Mg Tab) 3 mg PO HS PRN PRN Reason: Sleep Stop: 02/07/23 03:12 Last Admin: 01/08/23 03:29 Dose: 3 mg Miscellaneous (Carbohydrates For Hypoglycemia ) 15 - 30 gm PO UD PRN PRN Reason: Hypoglycemia Protocol Stop: 02/05/23 21:32 Ondansetron HCl (Ondansetron Inj 2 Mg/Ml 2 Ml Vial) 4 mg IV Q6H PRN PRN Reason: Nausea And Vomiting Stop: 02/07/23 11:03 Pantoprazole Sodium (Pantoprazole 40 Mg Tab) 40 mg PO QAM [facility] Stop: 02/07/23 08:59 Last Admin: 01/08/23 08:00 Dose: 40 mg Simvastatin (Simvastatin 10 Mg Tab) 10 mg PO DAILY [facility] Stop: 02/06/23 08:59 Last Admin: 01/08/23 08:11 Dose: 10 mg Sucralfate (Sucralfate 1 Gm/10 Ml Udc) 1 gm PO QID [facility] Stop: 02/07/23 12:59 PG Care Time/CCT Total # of Minutes Spent Total Time Spent with Patient: Total time spent is greater than 50% in coordination of care (as documented) at patient's floor/unit and/or counseling patient: Coding Level of Care Code 02447 INT INP/OBS CARE 3/75MIN Diagnoses New onset atrial fibrillation I48.91 Sinus pause I45.5 Choking T17.308A Elevated troponin R77.8
[2023-01-08] MEDS: ONDANSETRON INJ 2 MG/ML 2 ML VIAL IV PRN (11:17)
[2023-01-08] MEDS ORDERED: 0.2 MICRON FILTER SET 1 EACH IV STA (11:24)
[2023-01-08] MEDS ORDERED: STAT IV Infusion **Titration per Protocol STA (11:24)
[2023-01-08] MEDS ORDERED: AMIODARONE IV BOLUS & DRIP IV STA (11:24)
[2023-01-08] MEDS ORDERED: AMIODARONE / D5W 150 MG/100 ML BAG IV STA (11:24)
[2023-01-08] MEDS ORDERED: AMIODARONE / D5W 360 MG/200 ML BAG IV ONE (11:34)
[2023-01-08] MEDS: SUCRALFATE 1 GM/10 ML UDC PO SCH ×3 (14:23→20:44)
[2023-01-08] MEDS ORDERED: LACTATED RINGER'S 250 ML IV ONE (15:54)
[2023-01-08] MEDS ORDERED: LACTATED RINGER'S 1,000 ML IV SCH (16:00)
[2023-01-08 17:47] LABS: Base Excess VBG -0.6 mEq/L; HCO3 VBG 23 mmol/L; Oxygen Saturation VBG 86.5 %; PCO2 VBG 35 mmHg (38-50); PO2 VBG 52 mmHg; pH VBG 7.43 (7.36-7.41)
[2023-01-08] MEDS: AMIODARONE / D5W 360 MG/200 ML BAG IV SCH (17:50)
[2023-01-08 18:16] LABS: BUN Creatinine Ratio 23.5 (10-20); Creatinine Clr Calc Pharmacy 65.6 ml/min; Est GFR (African American) 93.8 ml/min; Est GFR (Non-African American) 80.9 ml/min; Magnesium 1.7 mg/dl (1.7-2.4)
[2023-01-08] MEDS: DOXYCYCLINE HYCLATE 100 MG in DEXTROSE 5% 100 ML IV SCH (20:47)
--- NOTE | 2023-01-08 21:57 | Electrocardiogram Report ---
Test Reason : Blood Pressure : / mmHG Vent. Rate : 083 BPM Atrial Rate : 083 BPM P-R Int : 176 ms QRS Dur : 084 ms QT Int : 380 ms P-R-T Axes : 027 023 031 degrees QTc Int : 446 ms Sinus rhythm with Premature atrial complexes Otherwise normal ECG When compared with ECG of 05-DEC-2020 10:59, No significant change was found Confirmed by Bruce Chavez ([id number]) on 01/08/2023 9:57:20 PM Referred By: Confirmed By:Bruce Chavez
[2023-01-08 23:41] LABS: Appearance Urine Clear (Clear); Bacteria Urine Automated Negative (Negative); Bilirubin Urine Negative (Negative); Blood Urine Negative (Negative); Color Urine Yellow; Epithelial Cell Urine Auto >30 /lpf (0-5); Glucose Urine UA 3+ (Negative); Ketones Urine Trace (Negative); Leukocyte Esterase Urine Trace (Negative); Nitrite Urine Negative (Negative); Protein Urine 1+ (Negative); RBC Urine Automated 0-4 /hpf (0-4); Specific Gravity Urine 1.037 (1.000-1.030); Urobilinogen Urine Negative (Negative); pH Urine 5.5 (4.5-7.5)
[2023-01-09] MEDS: AMIODARONE / D5W 360 MG/200 ML BAG IV SCH (05:12)
[2023-01-09 06:43] LABS: Hematocrit (blood only) 32.4 % (37.0-47.0); Hemoglobin 11.4 g/dl (12.0-16.0); Mean Corpuscular Hemoglobin 30.2 pg (25.0-34.0); Mean Corpuscular Hgb Conc 35.2 g/dL (32.0-36.0); Mean Corpuscular Volume 85.9 fL (80.0-100.0); Mean Platelet Volume 14.5 fL (9.4-12.4); Platelet Count 82 K/uL (130-400); RDW Coefficient of Variation 14.1 % (11.5-14.5); RDW Standard Deviation 44.4 fL (36.4-46.3); Red Blood Count 3.77 M/uL (4.20-5.40); White Blood Count 6.82 K/ul (4.8-10.8)
[2023-01-09 07:10] LABS: Calcium 8.3 mg/dl (8.6-10.3); Potassium 3.6 mmol/L (3.5-5.1)
[2023-01-09 07:15] LABS: BUN Creatinine Ratio 19.3 (10-20); Creatinine Clr Calc Pharmacy 78.3 ml/min; Est GFR (African American) 99.4 ml/min; Est GFR (Non-African American) 85.7 ml/min
--- NOTE | 2023-01-09 07:23 | Electrocardiogram Report ---
Test Reason : Blood Pressure : / mmHG Vent. Rate : 141 BPM Atrial Rate : 166 BPM P-R Int : 000 ms QRS Dur : 074 ms QT Int : 228 ms P-R-T Axes : 000 034 -03 degrees QTc Int : 349 ms Poor data quality, interpretation may be adversely affected Atrial fibrillation with rapid ventricular response Low voltage QRS Abnormal ECG When compared with ECG of 06-JAN-2023 10:56, Atrial fibrillation has replaced Sinus rhythm Vent. rate has increased BY 58 BPM Confirmed by Bruce Chavez ([id number]) on 01/09/2023 7:22:50 AM Referred By: Eduardo Dos Santos Confirmed By:Bruce Chavez
--- NOTE | 2023-01-09 07:28 | Electrocardiogram Report ---
Test Reason : Blood Pressure : / mmHG Vent. Rate : 119 BPM Atrial Rate : 227 BPM P-R Int : 000 ms QRS Dur : 078 ms QT Int : 318 ms P-R-T Axes : 000 023 026 degrees QTc Int : 447 ms Atrial fibrillation with rapid ventricular response Low voltage QRS Abnormal ECG When compared with ECG of 07-JAN-2023 22:06, (unconfirmed) Non-specific change in ST segment in Lateral leads Confirmed by Johny Layton ([id number] on 01/09/2023 7:28:39 AM Referred By: Eduardo Dos Santos Confirmed By:Master Layton
[2023-01-09 07:40] LABS: Basophils # (auto) 0.03 K/uL (0-0.2); Basophils % (auto) 0.4 %; Echinocytes 1+; Eosinophils # (auto) 0.01 K/uL (0-0.50); Eosinophils % (auto) 0.1 %; Immature Granulocytes # (auto) 0.03 K/uL (0.01-0.20); Immature Granulocytes % (auto) 0.4 %; Lymphocytes # (auto) 3.86 K/uL (1.2-3.4); Lymphocytes % (auto) 56.6 %; Monocytes # (auto) 0.59 K/uL (0.11-0.59); Monocytes % (auto) 8.7 %; Neutrophils % (auto) 33.8 %; Polychromasia 1+
[2023-01-09] MEDS ORDERED: Heparin IV Adult Wt-Based Standard *NO* Bolus Protocol IV ONE (08:11)
[2023-01-09] MEDS: INSULIN ASPART PER UNIT CHARGE SC SCH ×4 (08:35→21:23)
[2023-01-09] MEDS: SIMVASTATIN 10 MG TAB PO SCH (08:36)
[2023-01-09] MEDS: SUCRALFATE 1 GM/10 ML UDC PO SCH ×4 (08:37→20:05)
[2023-01-09] MEDS: DOXYCYCLINE HYCLATE 100 MG in DEXTROSE 5% 100 ML IV SCH ×2 (08:37→20:05)
[2023-01-09] MEDS: PANTOprazole 40 MG TAB PO SCH (08:37)
[2023-01-09] MEDS ORDERED: LANTUS PER UNIT CHARGE SQ SCH ×2 (09:00→21:00)
[2023-01-09] MEDS: HEPARIN SODIUM/DEXTROSE 25,000 UNITS/500 ML BAG IV SCH (09:36)
--- NOTE | 2023-01-09 09:46 | Cardiology Progress Note ---
Date of Service January 09, 2023 Assessment & Plan (1) New onset atrial fibrillation: (2) Sinus pause: (3) Choking: (4) Elevated troponin: Plan ASSESSMENT/PLAN: 1. New onset atrial fibrillation: Minimally symptomatic at this time. Still in atrial fibrillation with higher rates at times. I think we can switch her amiodarone infusion to an oral preparation. in the absence of a conversion to sinus rhythm we could consider a cardioversion tomorrow. Her platelet count has risen over 75,000 and hopefully she can be transition to oral anticoagulation today. 2. Bradycardia with pauses: Likely due to increased vagal tone. No recurrence. 3. Choking/dysphagia: She continues to have a sense of difficulty swallowing, she reported liquids in particular. This seems to make her cough 4. Elevated troponin: She did not present with acute coronary syndrome. 5. dyspnea on exertion: She did report some dyspnea on exertion leading up to her admission. This is a somewhat more chronic process. Perhaps related to simple deconditioning. She does have notable coronary calcifications on her CT scanning in this clearly and demographic who is likely to have coronary disease. Whether this produced or symptoms is unclear. I do not think this requires an urgent evaluation but could be addressed in the outpatient setting. Admission and Anticipated Discharge Date Admission Date: January 06, 2023 Subjective This morning patient did not report any specific complaints. She generally is not aware of any palpitations or rapid heartbeats. She claims to have been ambulatory around her room occasionally with a walker. She denies dizziness or lightheadedness. No associated chest pain. No breathing difficulty ambulating or at rest. Review of Systems Review of Systems: Per HPI Physical Exam Physical Exam: She is alert and oriented x3. Mood affect appear normal. She answered all questions appropriately. HEENT: Sclerae are anicteric. Pupils are equal and reactive to light and accommodation. Extraocular movements were intact. Neuro: Cranial nerves intact Lungs: Lungs are clear to auscultation bilaterally. There are no rales wheezes or rhonchi. She has normal respiratory effort without use of accessory muscles. There is normal pulmonary excursion. Cardiac: The rhythm was irregular. S1 and S2 were normal. There are no murmurs on examination. The PMI was not markedly displaced on palpation. Extremities: Patient has bilateral radial pulses that are equal in intensity. There is no evidence cyanosis or clubbing. There was no evidence of significant peripheral edema bilaterally. Skin: There are no rashes noted on examination today. Results & Data Vital Signs (Past 12 Hours) Vital Signs Temp Pulse Resp BP Pulse Ox O2 Del Method 01/09/23 08:03 36.8 C 126 H 30 H 111/72 93 Room Air 01/09/23 03:35 36.5 C 107 H 18 122/62 92 Room Air 01/08/23 22:57 36.7 C 111 H 22 123/59 L 93 Room Air Laboratory Results Abnormal Lab Results 01/08/23 01/08/23 01/08/23 11:06 15:57 15:58 WBC RBC Hgb Hct MCV MCH MCHC RDW Std Deviation RDW Coeff of Trena Plt Count MPV Immature Gran % (Auto) Neut % (Auto) Lymph % (Auto) [place] % (Auto) Eos % (Auto) Baso % (Auto) Neut # (Auto) Lymph # (Auto) [place] # (Auto) Eos # (Auto) Baso # (Auto) Immature Gran # (Auto) Polychromasia Echinocytes VBG pH VBG pCO2 VBG pO2 VBG HCO3 VBG O2 Saturation VBG Base Excess Sodium Potassium Chloride Carbon Dioxide Anion Gap BUN Creatinine Est Cr Clr Drug Dosing Est GFR ( Amer) Est GFR (Non-Af Amer) BUN/Creatinine Ratio Glucose POC Glucose 199 H 371 H* 443 H* Calcium Magnesium Procalcitonin Urine Color Urine Appearance Urine pH Ur Specific [place] Urine Protein Urine Glucose (UA) Urine Ketones Urine Blood Urine Nitrite Urine Bilirubin Urine Urobilinogen Ur Leukocyte Esterase Urine WBC (Auto) Urine RBC (Auto) U Hyaline Cast (Auto) U Epithel Cells (Auto) Urine Bacteria (Auto) Urine Yeast 01/08/23 01/08/23 01/08/23 16:52 16:52 16:52 WBC RBC Hgb Hct MCV MCH MCHC RDW Std Deviation RDW Coeff of Trena Plt Count MPV Immature Gran % (Auto) Neut % (Auto) Lymph % (Auto) [place] % (Auto) Eos % (Auto) Baso % (Auto) Neut # (Auto) Lymph # (Auto) [place] # (Auto) Eos # (Auto) Baso # (Auto) Immature Gran # (Auto) Polychromasia Echinocytes VBG pH 7.43 H VBG pCO2 35 L VBG pO2 52 VBG HCO3 23 VBG O2 Saturation 86.5 VBG Base Excess -0.6 Sodium 133 L Potassium 4.0 Chloride 103 Carbon Dioxide 23 Anion Gap 7 BUN 16 Creatinine 0.68 Est Cr Clr Drug Dosing 65.6 Est GFR ( Amer) 93.8 Est GFR (Non-Af Amer) 80.9 BUN/Creatinine Ratio 23.5 H Glucose 325 H* POC Glucose Calcium 8.0 L Magnesium 1.7 Procalcitonin 0.62 H Urine Color Urine Appearance Urine pH Ur Specific [place] Urine Protein Urine Glucose (UA) Urine Ketones Urine Blood Urine Nitrite Urine Bilirubin Urine Urobilinogen Ur Leukocyte Esterase Urine WBC (Auto) Urine RBC (Auto) U Hyaline Cast (Auto) U Epithel Cells (Auto) Urine Bacteria (Auto) Urine Yeast 01/08/23 01/08/23 01/09/23 20:30 Unknown 05:50 WBC 6.82 RBC 3.77 L Hgb 11.4 L Hct 32.4 L MCV 85.9 MCH 30.2 MCHC 35.2 RDW Std Deviation 44.4 RDW Coeff of Trena 14.1 Plt Count 82 L MPV 14.5 H Immature Gran % (Auto) 0.4 Neut % (Auto) 33.8 Lymph % (Auto) 56.6 [place] % (Auto) 8.7 Eos % (Auto) 0.1 Baso % (Auto) 0.4 Neut # (Auto) 2.30 Lymph # (Auto) 3.86 H [place] # (Auto) 0.59 Eos # (Auto) 0.01 Baso # (Auto) 0.03 Immature Gran # (Auto) 0.03 Polychromasia 1+ Echinocytes 1+ VBG pH VBG pCO2 VBG pO2 VBG HCO3 VBG O2 Saturation VBG Base Excess Sodium Potassium Chloride Carbon Dioxide Anion Gap BUN Creatinine Est Cr Clr Drug Dosing Est GFR ( Amer) Est GFR (Non-Af Amer) BUN/Creatinine Ratio Glucose POC Glucose 234 H Calcium Magnesium Procalcitonin Urine Color Yellow Urine Appearance Clear Urine pH 5.5 Ur Specific [place] 1.037 H Urine Protein 1+ H Urine Glucose (UA) 3+ H Urine Ketones Trace H Urine Blood Negative Urine Nitrite Negative Urine Bilirubin Negative Urine Urobilinogen Negative Ur Leukocyte Esterase Trace H Urine WBC (Auto) 10-30 H Urine RBC (Auto) 0-4 U Hyaline Cast (Auto) 5-10 H U Epithel Cells (Auto) >30 H Urine Bacteria (Auto) Negative Urine Yeast Not Reportable 01/09/23 01/09/23 05:50 07:27 WBC RBC Hgb Hct MCV MCH MCHC RDW Std Deviation RDW Coeff of Trena Plt Count MPV Immature Gran % (Auto) Neut % (Auto) Lymph % (Auto) [place] % (Auto) Eos % (Auto) Baso % (Auto) Neut # (Auto) Lymph # (Auto) [place] # (Auto) Eos # (Auto) Baso # (Auto) Immature Gran # (Auto) Polychromasia Echinocytes VBG pH VBG pCO2 VBG pO2 VBG HCO3 VBG O2 Saturation VBG Base Excess Sodium 137 Potassium 3.6 Chloride 105 Carbon Dioxide 25 Anion Gap 7 BUN 11 Creatinine 0.57 L Est Cr Clr Drug Dosing 78.3 Est GFR ( Amer) 99.4 Est GFR (Non-Af Amer) 85.7 BUN/Creatinine Ratio 19.3 Glucose 158 H POC Glucose 171 H Calcium 8.3 L Magnesium Procalcitonin Urine Color Urine Appearance Urine pH Ur Specific [place] Urine Protein Urine Glucose (UA) Urine Ketones Urine Blood Urine Nitrite Urine Bilirubin Urine Urobilinogen Ur Leukocyte Esterase Urine WBC (Auto) Urine RBC (Auto) U Hyaline Cast (Auto) U Epithel Cells (Auto) Urine Bacteria (Auto) Urine Yeast Diagnostic Findings Echocardiogram 01/07/2023: Normal LV systolic function with moderate LVH. Mild mitral regurgitation. PG Care Time/CCT Total # of Minutes Spent Total Time Spent with Patient: Total time spent is greater than 50% in coordination of care (as documented) at patient's floor/unit and/or counseling patient: Coding Level of Care Code 20928 SUB INP/OBS CARE 2/35MIN Diagnoses New onset atrial fibrillation I48.91 Sinus pause I45.5 Choking T17.308A Elevated troponin R77.8
[2023-01-09] MEDS ORDERED: AMIODARONE 200 MG TAB PO ONE ×2 (11:20→20:20)
--- NOTE | 2023-01-09 15:32 | Hospitalist Progress Note ---
Date of Service January 09, 2023 Assessment & Plan (1) Pulmonary emboli: Plan: CTA Chest with multiple b/l PEs. Suspect that at least some of her dyspnea on exertion over the last 3 months has been due in part to the PEs. Fortunately she is hemodynamically stable and O2 sats are wnl. Further, she was placed on heparin drip this am for her a.fib and thus she is receiving appropriate Rx for the PEs. Perhaps her PEs contributed in some fashion to the development of rapid a.fib. Recent echo with normal RV function. I suspect the patient has a genetic mutation or other hypercoagulable state that led to this. Both her own mother and her daughter have had VTE. She should be a DOAC candidate. Continue heparin drip - standard dosing. CBC in am to recheck platelets. Consider dopplers of legs to r/o DVT. (2) New onset atrial fibrillation: Plan: She has no prior h/o a.fib to her knowledge. She is asymptomatic from the a.fib. I suspect the stress of her anaplasmosis illness precipitated the a.fib. The newly discovered PEs could have also increased her risk of a.fib. CHADsVASC score is a 5. Anticoagulation is advised. To that end heparin drip started today, and she will ultimately convert to an oral agent. Echo 01/07 with preserved EF and normal wall motion without significant valvular disease. TSH is wnl. s/p initiation of amiodarone drip yesterday Dr Layton saw patient today and changed her drip to PO form. Fortunately she converted back to NSR today. Appreciate cardiology assistance. (3) Sinus pause: Plan: The patient had a 6+ second pause the AM of 01/08/23. There were a few minor pauses immediately preceding the long pause. These pauses occurred while she was having difficulty swallowing her medications. Suspect the pause was vagally-mediated. No pauses since that event. (4) Anaplasmosis: Plan: clinical symptoms/history, elevated AST, leukopenia, thrombocytopenia, and +anaplasmosis smear ALL c/w anaplasmosis infection cont doxycycline - plan 14 day course - today is day #4 of Rx cont IV formulation due to recent swallowing issues & likely esophagitis (esophageal thickening seen on CT scan). Lyme screen is negative CPK is normal WBC count has normalized platelets trending up procal is decreasing repeat CBC in am (5) UTI (urinary tract infection): Plan: admission u/a was not suspicious for UTI (3+ protein only); neg LE, neg ni trites, etc urine cx negative no symptoms of UTI noted the CT findings of bladder/kidneys but all information together not c/w UTI stopped rocephin her presentation at admission was likely all due to #4 above (6) Dyspnea on exertion: Plan: chronic, present for about 3 months no dyspnea at rest no nocturnal symptoms denies associated chest pain/tightness CXR without acute findings lung bases on CT a/p without any ILD findings her lung exam is fairly unremarkable CT a/p shows "extensive" coronary artery calcifications she has numerous CAD risk factors (HTN, lipids, DM, etc) will recommend outpatient stress test after anaplasmosis resolves echo this admission with preserved EF, normal LV wall motion in addition, we have now discovered b/l PEs if she has been throwing PEs for some time certainly the PEs could have been contributing to her symptoms (7) Type 2 diabetes mellitus with peripheral neuropathy: Plan: uncontrolled a1c 8.9% has not had a hemoglobin a1c below 8% in 5+ years adjust novolog once again increase lantus again consider a basal insulin at d/c in addition to her metformin (8) Chronic low back pain: Plan: worse in the setting of myalgias from #1 above pain improved follow (9) Obstructive sleep apnea: (10) Hypertension: Plan: HOLD amlodipine and enalapril to allow more room for BP in the setting of her recent rapid a.fib (11) Hyperlipidemia: Plan: cont simvastatin - only the AST was mildly high on LFTs and the AST is stable (12) Esophageal thickening: Plan: likely due to GERD started PPI added carafate qid would benefit from GI referral for consideration of EGD to ensure nothing else is going on in esophagus and in light of the dysphagia she has had for 12 months (13) Coronary artery calcification: Plan: seen on CT see above (14) Pancytopenia: Plan: likely 2nd to #3 above repeat CBC w/ diff in am (15) Elevated AST (SGOT): Plan: likely 2nd to #3 CPK level wnll repeat level am (16) Hypokalemia: Plan: replaced resolved mag level is wnl (17) Dysphagia: Plan: appreciate speech therapy consult video swallow/barium swallow advised by speech depending on those results will need outpatient EGD as well cont PPI + carafate remains on minced/moist diet Plan cont PT given her weakness daughter updated at bedside Admission and Anticipated Discharge Date Admission Date: January 06, 2023 Subjective rapid a.fib all night, then converted to NSR today during my visit she was sitting on the side of the bed when she got back in bed to lay down she was quite short of breath and visibly dyspneic she commented "this is how I've been" [for several months] she further commented that when she walks and gets into a car she is short of breath with respect to anaplasmosis she is "feeling better" appetite improved today more energy myalgias resolved at one point I asked if there was a family history of DVT/PE her daughter immediately said she had had a DVT in her right leg with PEs the patient then mentioned that her mother in her early 50s from PEs seen by speech therapy today - barium swallow/video swallow recommended by them for her dysphagia finally, we discussed her high blood sugars she is not opposed to a shot of insulin each day Review of Systems Review of Systems: gen - no fevers or chills cv - no chest pain pulm - still with severe dyspnea, no cough GI - no abd pain, nausea or emesis Physical Exam Physical Exam: gen - sitting at side of bed, looks better than yesterday; when she moved to the supine position she got very dyspneic mouth - MMM neck - no JVD heart - RRR, s1 s2, no murmur lungs - CTA b/l abd - soft NT ND BS+; no splenomegaly ext - no edema, pulses 2+ b/l psych - a/o x 3 Results & Data Results & Data Vital Signs (Past 12 Hours) Vital Signs Temp Pulse Pulse Resp BP Pulse Ox O2 Del Method 01/09/23 15:25 66 01/09/23 15:13 97 01/09/23 11:22 36.7 C 75 15 126/70 95 Room Air 01/09/23 10:20 118 H 01/09/23 08:03 36.8 C 126 H 30 H 111/72 93 Room Air 01/09/23 03:35 36.5 C 107 H 18 122/62 92 Room Air Laboratory Results Laboratory Results - last 24 hr 01/09/23 01/09/23 01/09/23 05:50 05:50 07:27 WBC 6.82 RBC 3.77 L Hgb 11.4 L Hct 32.4 L MCV 85.9 MCH 30.2 MCHC 35.2 RDW Std Deviation 44.4 RDW Coeff of Trena 14.1 Plt Count 82 L MPV 14.5 H Immature Gran % (Auto) 0.4 Neut % (Auto) 33.8 Lymph % (Auto) 56.6 [place] % (Auto) 8.7 Eos % (Auto) 0.1 Baso % (Auto) 0.4 Neut # (Auto) 2.30 Lymph # (Auto) 3.86 H [place] # (Auto) 0.59 Eos # (Auto) 0.01 Baso # (Auto) 0.03 Immature Gran # (Auto) 0.03 Polychromasia 1+ Echinocytes 1+ APTT PTT Ratio Sodium 137 Potassium 3.6 Chloride 105 Carbon Dioxide 25 Anion Gap 7 BUN 11 Creatinine 0.57 L Est Cr Clr Drug Dosing 78.3 Est GFR ( Amer) 99.4 Est GFR (Non-Af Amer) 85.7 BUN/Creatinine Ratio 19.3 Glucose 158 H POC Glucose 171 H Calcium 8.3 L 01/09/23 01/09/23 01/09/23 11:03 15:28 16:18 WBC RBC Hgb Hct MCV MCH MCHC RDW Std Deviation RDW Coeff of Trena Plt Count MPV Immature Gran % (Auto) Neut % (Auto) Lymph % (Auto) [place] % (Auto) Eos % (Auto) Baso % (Auto) Neut # (Auto) Lymph # (Auto) [place] # (Auto) Eos # (Auto) Baso # (Auto) Immature Gran # (Auto) Polychromasia Echinocytes APTT 53.5 H* PTT Ratio 1.9 Sodium Potassium Chloride Carbon Dioxide Anion Gap BUN Creatinine Est Cr Clr Drug Dosing Est GFR ( Amer) Est GFR (Non-Af Amer) BUN/Creatinine Ratio Glucose POC Glucose 254 H 221 H Calcium 01/09/23 01/10/23 01/10/23 20:54 00:30 03:44 WBC RBC Hgb Hct MCV MCH MCHC RDW Std Deviation RDW Coeff of Trena Plt Count MPV Immature Gran % (Auto) Neut % (Auto) Lymph % (Auto) [place] % (Auto) Eos % (Auto) Baso % (Auto) Neut # (Auto) Lymph # (Auto) [place] # (Auto) Eos # (Auto) Baso # (Auto) Immature Gran # (Auto) Polychromasia Echinocytes APTT PTT Ratio Sodium Potassium Chloride Carbon Dioxide Anion Gap BUN Creatinine Est Cr Clr Drug Dosing Est GFR ( Amer) Est GFR (Non-Af Amer) BUN/Creatinine Ratio Glucose POC Glucose 96 82 101 H Calcium Diagnostic Findings Chest CTA 01/09/23 15:31 CT angio chest PE protocol CLINICAL HISTORY: AL, new onset a.fib, famhx VTE; eval PE TECHNIQUE: Multidetector row helical CT of the chest was performed with angiographic protocol. Coronal and sagittal reformations were obtained. Coronal and sagittal MIPS were obtained from the axial data set and were submitted for review. Automated dose lowering techniques and/or adjustment according to patient size were utilized for this exam. CT DOSE: 703.68 mGy.cm Comparison: Comparison is made to CT chest 08/14/2007 FINDINGS: Lungs and pleura: Bilateral atelectasis is seen. Heart and pericardium: No right heart strain is seen. Vessels: Multiple right pulmonary emboli are seen involving segmental and subsegmental branches. There is nonocclusive embolus extending into the right main pulmonary artery and pulmonary trunk. There is a subsegmental pulmonary embolus in the left lower lobe. Mediastinum and ashley: Unremarkable. Chest wall and lower neck: Right thyroid hypodense nodule measures 19 mm. Abdomen: Unremarkable. Bones: Degenerative changes in the thoracic spine. IMPRESSION: 1. Multiple segmental and subsegmental pulmonary emboli are seen without evidence of right heart strain. 2. Thyroid nodule is seen. If not previously evaluated, nonemergent thyroid ultrasound can be performed. A call was placed with the patient's provider Dr. Garcia at the time of dictation. ACT 112: Negative or not required by law. Electronically signed by: Ford Ang M.D. 01/09/2023 9:09 PM PG Care Time/CCT Total # of Minutes Spent Total Time Spent with Patient: Total time spent is greater than 50% in coordination of care (as documented) at patient's floor/unit and/or counseling patient: Coding Level of Care Code 31567 SUB INP/OBS CARE 3/50MIN Diagnoses Pulmonary emboli I26.99 New onset atrial fibrillation I48.91 Sinus pause I45.5 Anaplasmosis A77.49 UTI (urinary tract infection) N39.0 Dyspnea on exertion R06.09 Type 2 diabetes mellitus with peripheral neuropathy E11.42 Chronic low back pain M54.5; G89.29 Obstructive sleep apnea G47.33 Hypertension I10 Hyperlipidemia E78.2 Hyperlipidemia type: mixed hyperlipidemia Esophageal thickening K22.89 Coronary artery calcification I25.10; I25.84 Pancytopenia D61.818 Elevated AST (SGOT) R74.01 Hypokalemia E87.6 Dysphagia R13.10 (11) Hyperlipidemia Hyperlipidemia type: mixed hyperlipidemia Qualified Code(s): E78.2 - Mixed hyperlipidemia
[2023-01-09 16:45] LABS: Partial Thromboplastin Ratio 1.9
[2023-01-09 16:48] LABS: Partial Thromboplastin Time 53.5 Seconds (21.0-31.0)
[2023-01-09] MEDS ORDERED: OPTIRAY 320 500ml IV ONE (17:46)
--- NOTE | 2023-01-09 21:11 | CT Scan Report ---
CT angio chest PE protocol CLINICAL HISTORY: [place], new onset a.fib, famhx VTE; eval PE TECHNIQUE: Multidetector row helical CT of the chest was performed with angiographic protocol. Rodriguez l and sagittal reformations were obtained. Coronal and sagittal MIPS were obtained from the axial hans a set and were submitted for review. Automated dose lowering techniques and/or adjustment according to patient size were utilized for this exam. CT DOSE: 703.68 mGy.cm Comparison: Comparison is made to CT chest 08/14/2007 FINDINGS: Lungs and pleura: Bilateral atelectasis is seen. Heart and pericardium: No right heart strain is seen. Vessels: Multiple right pulmonary emboli are seen involving segmental and subsegmental branches. Ther e is nonocclusive embolus extending into the right main pulmonary artery and pulmonary trunk. There i s a subsegmental pulmonary embolus in the left lower lobe. Mediastinum and ashley: Unremarkable. Chest wall and lower neck: Right thyroid hypodense nodule measures 19 mm. Abdomen: Unremarkable. Bones: Degenerative changes in the thoracic spine. IMPRESSION: 1. Multiple segmental and subsegmental pulmonary emboli are seen without evidence of right heart str ain. 2. Thyroid nodule is seen. If not previously evaluated, nonemergent thyroid ultrasound can be perfor med. A call was placed with the patient's provider Dr. Garcia at the time of dictation. ACT 112: Negative or not required by law. Electronically signed by: Ford Ang M.D. 01/09/2023 9:09 PM
[2023-01-09] MEDS ORDERED: LANTUS PER UNIT CHARGE SQ STA (21:57)
[2023-01-10] MEDS: HEPARIN SODIUM/DEXTROSE 25,000 UNITS/500 ML BAG IV SCH (05:33)
[2023-01-10 06:41] LABS: BUN Creatinine Ratio 14.8 (10-20); Calcium 8.3 mg/dl (8.6-10.3); Creatinine Clr Calc Pharmacy 73.1 ml/min; Est GFR (African American) 97.2 ml/min; Est GFR (Non-African American) 83.8 ml/min; Potassium 3.4 mmol/L (3.5-5.1)
[2023-01-10 06:44] LABS: Basophils # (auto) 0.02 K/uL (0-0.2); Basophils % (auto) 0.3 %; Eosinophils # (auto) 0.04 K/uL (0-0.50); Eosinophils % (auto) 0.5 %; Hematocrit (blood only) 30.1 % (37.0-47.0); Hemoglobin 10.4 g/dl (12.0-16.0); Immature Granulocytes # (auto) 0.04 K/uL (0.01-0.20); Immature Granulocytes % (auto) 0.5 %; Lymphocytes # (auto) 4.47 K/uL (1.2-3.4); Lymphocytes % (auto) 58.1 %; Mean Corpuscular Hemoglobin 29.8 pg (25.0-34.0); Mean Corpuscular Hgb Conc 34.6 g/dL (32.0-36.0); Mean Corpuscular Volume 86.2 fL (80.0-100.0); Mean Platelet Volume 13.9 fL (9.4-12.4); Monocytes % (auto) 6.5 %; Neutrophils # (auto) 2.62 K/uL (1.40-6.50); Neutrophils % (auto) 34.1 %; Platelet Count 102 K/uL (130-400); RDW Coefficient of Variation 14.4 % (11.5-14.5); RDW Standard Deviation 45.6 fL (36.4-46.3); Red Blood Count 3.49 M/uL (4.20-5.40); White Blood Count 7.69 K/ul (4.8-10.8)
[2023-01-10 07:19] LABS: Partial Thromboplastin Ratio 2.5
[2023-01-10 07:21] LABS: Partial Thromboplastin Time 70.1 Seconds (21.0-31.0)
[2023-01-10] MEDS: INSULIN ASPART PER UNIT CHARGE SC SCH ×4 (07:30→20:58)
[2023-01-10] MEDS ORDERED: POTASSIUM CHLORIDE 20 MEQ/15 ML UDC PO STA (08:25)
[2023-01-10] MEDS: SIMVASTATIN 10 MG TAB PO SCH (09:59)
[2023-01-10] MEDS: SUCRALFATE 1 GM/10 ML UDC PO SCH ×4 (09:59→21:08)
[2023-01-10] MEDS: PANTOprazole 40 MG TAB PO SCH (09:59)
[2023-01-10] MEDS: DOXYCYCLINE HYCLATE 100 MG in DEXTROSE 5% 100 ML IV SCH ×2 (10:55→21:16)
--- NOTE | 2023-01-10 11:49 | Fluoroscopy Report ---
FL barium swallow CLINICAL HISTORY: dysphagia TECHNIQUE: The patient was observed drinking thick and thin barium under fluoroscopic observation in both the upright and recumbent positions. Total fluoroscopy time: 1.12 minutes Ka,r: 44.7 mGy COMPARISON: Comparison is made to CTA chest 01/09/2023 FINDINGS: The patient had no problem initiating the swallowing mechanism. There was no evidence of aspiration. Dysmotility was seen during swallowing. There was no evidence of strictures, filling defects, or outpouchings. Contrast flowed readily from t he esophagus into the stomach. No hiatal hernia is seen. Reflux was visualized. Patient was unable to swallow a 13 mm barium pill. IMPRESSION: Dysmotility and reflux. Patient was unable to swallow pill. ACT 112: Negative or not required by law. Electronically signed by: Ford Ang M.D. 01/10/2023 11:47 AM
[2023-01-10] MEDS: LANTUS PER UNIT CHARGE SQ SCH ×2 (12:11→21:09)
--- NOTE | 2023-01-10 13:41 | Ultrasound Report ---
US venous doppler LE BI CLINICAL HISTORY: PEs; eval DVT TECHNIQUE: Bilateral lower extremity real-time compression venous ultrasound with Color Doppler imagi ng. Utilizing real-time ultrasonic imaging multiple real time high-resolution ultrasonic images with compression and noncompression maneuvers of the deep venous system in addition to color doppler imagi ng were performed from the common femoral vein through the proximal calf veins. COMPARISON: Comparison is made to right lower extremity ultrasound 07/02/2021 FINDINGS/IMPRESSION: Currently there is normal compressibility of the deep venous system from the common femoral vein thro ugh the proximal calf veins. No superficial venous thrombosis is identified. ACT 112: Negative or not required by law. Electronically signed by: Ford Ang M.D. 01/10/2023 1:40 PM
[2023-01-10 15:16] LABS: Partial Thromboplastin Ratio 1.9
[2023-01-10 15:44] LABS: Partial Thromboplastin Time 52.4 Seconds (21.0-31.0)
--- NOTE | 2023-01-10 17:50 | XRay Report ---
XR chest 1V portable HISTORY: 82 years-old Female dyspnea, b/l basilar rales acute shortness of breath COMPARISON: CT chest 01/09/2023 TECHNIQUE: AP view of the chest FINDINGS: Cardiac silhouette is enlarged. Mild chronic interstitial coarsening. No pneumothorax, overt pulmonar y edema or airspace consolidation typical for pneumonia. Trace pleural effusions redemonstrated. Bone s appear grossly intact. IMPRESSION: 1. Cardiomegaly without overt pulmonary edema. 2. Trace pleural effusions redemonstrated. ACT 112: Negative or not required by law. The above report was generated using voice recognition software. It may contain grammatical, syntax o r spelling errors. Electronically signed by: Moe Starkey M.D. 01/10/2023 5:48 PM
--- NOTE | 2023-01-10 19:30 | Hospitalist Progress Note ---
Date of Service January 10, 2023 Assessment & Plan (1) Pulmonary emboli: Plan: CTA Chest with multiple b/l PEs. Suspect that at least some of her dyspnea on exertion over the last 3 months has been due in part throwing PEs over time. Fortunately she remains hemodynamically stable and O2 sats are wnl. Perhaps her PEs contributed in some fashion to the development of rapid a.fib. Recent echo with normal RV function. I suspect the patient has a genetic mutation or other hypercoagulable state that led to this. Both her own mother and her daughter have had VTE. Later today stop heparin drip. Transition to Eliquis 10mg BID x 7 days followed by 5mg BID. She may need anticoagulation indefinitely as her PEs are unprovoked and due to a.fib. In light of esophageal abnormalities and dysphagia recommend EGD as outpatient with GI - will need referral to [facility] [facility]. CBC in am to recheck platelets but they continue to improve. Of note - dopplers of legs neg for DVT> (2) Anaplasmosis: Plan: IMPROVING clinical symptoms/history, elevated AST, leukopenia, thrombocytopenia, and +anaplasmosis smear ALL c/w anaplasmosis infection cont doxycycline - plan 14 day course - today is day #5 of Rx cont IV formulation due to recent swallowing issues & likely esophagitis (esophageal thickening seen on CT scan). before discharge we will need to make sure she has no issues swallowing PO doxy Lyme screen is negative CPK is normal WBC count has normalized platelets trending up repeat CBC in am to ensure platelets have normalized (3) New onset atrial fibrillation: Plan: Had such from evening of 01/07/23 to AM of 01/09/23 Converted to NSR while on amiodarone drip I suspect the stress of her anaplasmosis illness precipitated the a.fib. The newly discovered PEs could have also increased her risk of a.fib. CHADsVASC score is a 5. Echo 01/07 with preserved EF and normal wall motion without significant valvular disease. TSH is wnl. Amiodarone drip has been stopped She remains in NSR Heparin drip being converted to Eliquis today Was seen by cardiology earlier in stay for this issue Consider low-dose beta lucy (4) Sinus pause: Plan: The patient had a 6+ second pause the AM of 01/08/23. There were a few minor pauses immediately preceding the long pause. These pauses occurred while she was having difficulty swallowing her medications. Suspect the pause was vagally-mediated. No pauses since that event. (5) UTI (urinary tract infection): Plan: ruled out (6) Dyspnea on exertion: Plan: chronic, present for about 3 months no dyspnea at rest no nocturnal symptoms denies associated chest pain/tightness CT a/p shows "extensive" coronary artery calcifications she has numerous CAD risk factors (HTN, lipids, DM, etc) will recommend outpatient stress test after anaplasmosis resolves echo this admission with preserved EF, normal LV wall motion in addition, we have now discovered b/l PEs if she has been throwing PEs for some time certainly the PEs could have been contributing to her symptoms (7) Type 2 diabetes mellitus with peripheral neuropathy: Plan: uncontrolled but improving with adjustment of novolog/lantus a1c 8.9% has not had a hemoglobin a1c below 8% in 5+ years consider a basal insulin at d/c in addition to her metformin - if she is willing to take such (8) Chronic low back pain: Plan: controlled (9) Obstructive sleep apnea: (10) Hypertension: Plan: HOLD amlodipine and enalapril to allow more room for BP in the setting of her recent rapid a.fib If she needs BP control consider low-dose metoprolol (11) Hyperlipidemia: Plan: cont simvastatin - only the AST was mildly high on LFTs and the AST is stable (12) Esophageal thickening: Plan: likely due to GERD started PPI added carafate qid would benefit from GI referral for consideration of EGD to ensure nothing else is going on in esophagus and in light of the dysphagia she has had for 12 months along with unprovoked PEs (13) Coronary artery calcification: Plan: seen on CT see above (14) Pancytopenia: Plan: likely 2nd to anaplasmosis infection resolving nicely (15) Elevated AST (SGOT): Plan: likely 2nd to anaplasmosis (16) Hypokalemia: Plan: replaced resolved mag level is wnl (17) Dysphagia: Plan: appreciate speech therapy consult barium swallow completed - had findings of dysmotility and GERD cont PPI + carafate remains on minced/moist diet send to GI post-d/c (18) Demand ischemia of myocardium: Plan: peak HS trop 52 early in the stay this was 2nd to demand ischemia in the setting of anaplasmosis infection, etc (19) Thyroid nodule: Plan: seen incidentally on CTA chest 1.9cm in size on RIGHT advise referral to [facility] [place] [facility] post-discharge for u/s and other w/u TFTs wnl (20) Bibasilar crackles: Plan: CXR obtained today -- read as chronic interstitial thickening however, this could be pulmonary edema in the setting of recent rapid a.fib, etc lasix 20mg IV x 1 Plan cont PT given her weakness daughter updated at bedside yesterday [id number] (Maranda Prasad - phone # is in chart) updated by phone this evening Admission and Anticipated Discharge Date Admission Date: January 06, 2023 Subjective tele - continues to remain in NSR she underwent barium swallow today - this showed evidence of dysmotility and reflux could not swallow the barium pill she also had b/l venous dopplers of legs -- neg for DVT during the visit she was resting comfortably in bed she continues with dyspnea with very little activity no cough appetite has improved energy improved she is hoping to go home soon Review of Systems Review of Systems: gen - no fevers or chills cv - no chest pain, no orthopnea pulm - ongoing AL; no dyspnea at rest GI - no abd pain/nausea/emesis Physical Exam Physical Exam: gen - sitting at side of bed; like previous visits gets dyspneic with minimal activity; otherwise NAD mouth - MMM neck - no JVD heart - RRR, s1 s2, no murmur lungs - b/l rales bases, became tachypneic with moving in bed; no wheezes abd - soft NT ND BS+; no splenomegaly ext - no edema, pulses 2+ b/l psych - a/o x 3 Results & Data Results & Data Vital Signs (Past 12 Hours) Vital Signs Temp Pulse Pulse Resp BP Pulse Ox Pulse Ox 01/10/23 15:00 70 01/10/23 15:12 36.6 C 71 20 134/67 90 01/10/23 14:23 69 01/10/23 12:00 94 01/10/23 12:13 36.6 C 69 18 150/72 H 94 01/10/23 11:43 16 01/10/23 07:53 36.7 C 68 28 H 134/70 92 O2 Del Method O2 Del Method 01/10/23 15:00 01/10/23 15:12 Room Air 01/10/23 14:23 01/10/23 12:00 Room Air 01/10/23 12:13 Room Air 01/10/23 11:43 01/10/23 07:53 Room Air Laboratory Results Laboratory Results - last 48 hr 01/09/23 01/09/23 01/09/23 11:03 15:28 16:18 WBC RBC Hgb Hct MCV MCH MCHC RDW Std Deviation RDW Coeff of Trena Plt Count MPV Immature Gran % (Auto) Neut % (Auto) Lymph % (Auto) [place] % (Auto) Eos % (Auto) Baso % (Auto) Neut # (Auto) Lymph # (Auto) [place] # (Auto) Eos # (Auto) Baso # (Auto) Immature Gran # (Auto) APTT 53.5 H* PTT Ratio 1.9 Sodium Potassium Chloride Carbon Dioxide Anion Gap BUN Creatinine Est Cr Clr Drug Dosing Est GFR ( Amer) Est GFR (Non-Af Amer) BUN/Creatinine Ratio Glucose POC Glucose 254 H 221 H Calcium AST 01/09/23 01/10/23 01/10/23 20:54 00:30 03:44 WBC RBC Hgb Hct MCV MCH MCHC RDW Std Deviation RDW Coeff of Trena Plt Count MPV Immature Gran % (Auto) Neut % (Auto) Lymph % (Auto) [place] % (Auto) Eos % (Auto) Baso % (Auto) Neut # (Auto) Lymph # (Auto) [place] # (Auto) Eos # (Auto) Baso # (Auto) Immature Gran # (Auto) APTT PTT Ratio Sodium Potassium Chloride Carbon Dioxide Anion Gap BUN Creatinine Est Cr Clr Drug Dosing Est GFR ( Amer) Est GFR (Non-Af Amer) BUN/Creatinine Ratio Glucose POC Glucose 96 82 101 H Calcium AST 01/10/23 01/10/23 01/10/23 05:48 05:48 05:48 WBC 7.69 RBC 3.49 L Hgb 10.4 L Hct 30.1 L MCV 86.2 MCH 29.8 MCHC 34.6 RDW Std Deviation 45.6 RDW Coeff of Trena 14.4 Plt Count 102 L MPV 13.9 H Immature Gran % (Auto) 0.5 Neut % (Auto) 34.1 Lymph % (Auto) 58.1 [place] % (Auto) 6.5 Eos % (Auto) 0.5 Baso % (Auto) 0.3 Neut # (Auto) 2.62 Lymph # (Auto) 4.47 H [place] # (Auto) 0.50 Eos # (Auto) 0.04 Baso # (Auto) 0.02 Immature Gran # (Auto) 0.04 APTT 70.1 H* PTT Ratio 2.5 Sodium 139 Potassium 3.4 L Chloride 107 Carbon Dioxide 26 Anion Gap 6 BUN 9 Creatinine 0.61 Est Cr Clr Drug Dosing 73.1 Est GFR ( Amer) 97.2 Est GFR (Non-Af Amer) 83.8 BUN/Creatinine Ratio 14.8 Glucose 90 POC Glucose Calcium 8.3 L AST 48 H 01/10/23 01/10/23 01/10/23 07:16 11:23 14:02 WBC RBC Hgb Hct MCV MCH MCHC RDW Std Deviation RDW Coeff of Trena Plt Count MPV Immature Gran % (Auto) Neut % (Auto) Lymph % (Auto) [place] % (Auto) Eos % (Auto) Baso % (Auto) Neut # (Auto) Lymph # (Auto) [place] # (Auto) Eos # (Auto) Baso # (Auto) Immature Gran # (Auto) APTT 52.4 H* PTT Ratio 1.9 Sodium Potassium Chloride Carbon Dioxide Anion Gap BUN Creatinine Est Cr Clr Drug Dosing Est GFR ( Amer) Est GFR (Non-Af Amer) BUN/Creatinine Ratio Glucose POC Glucose 101 H 140 H Calcium AST 01/10/23 16:08 WBC RBC Hgb Hct MCV MCH MCHC RDW Std Deviation RDW Coeff of Trena Plt Count MPV Immature Gran % (Auto) Neut % (Auto) Lymph % (Auto) [place] % (Auto) Eos % (Auto) Baso % (Auto) Neut # (Auto) Lymph # (Auto) [place] # (Auto) Eos # (Auto) Baso # (Auto) Immature Gran # (Auto) APTT PTT Ratio Sodium Potassium Chloride Carbon Dioxide Anion Gap BUN Creatinine Est Cr Clr Drug Dosing Est GFR ( Amer) Est GFR (Non-Af Amer) BUN/Creatinine Ratio Glucose POC Glucose 167 H Calcium AST Diagnostic Findings Barium Swallow X-Ray 01/10/23 09:15 FL barium swallow CLINICAL HISTORY: dysphagia TECHNIQUE: The patient was observed drinking thick and thin barium under fluoroscopic observation in both the upright and recumbent positions. Total fluoroscopy time: 1.12 minutes Ka,r: 44.7 mGy COMPARISON: Comparison is made to CTA chest 01/09/2023 FINDINGS: The patient had no problem initiating the swallowing mechanism. There was no evidence of aspiration. Dysmotility was seen during swallowing. There was no evidence of strictures, filling defects, or outpouchings. Contrast flowed readily from the esophagus into the stomach. No hiatal hernia is seen. Reflux was visualized. Patient was unable to swallow a 13 mm barium pill. IMPRESSION: Dysmotility and reflux. Patient was unable to swallow pill. ACT 112: Negative or not required by law. Electronically signed by: Ford Ang M.D. 01/10/2023 11:47 AM Venous Doppler Study 01/10/23 10:04 US venous doppler LE BI CLINICAL HISTORY: PEs; eval DVT TECHNIQUE: Bilateral lower extremity real-time compression venous ultrasound with Color Doppler imaging. Utilizing real-time ultrasonic imaging multiple real time high-resolution ultrasonic images with compression and noncompression maneuvers of the deep venous system in addition to color doppler imaging were performed from the common femoral vein through the proximal calf veins. COMPARISON: Comparison is made to right lower extremity ultrasound 07/02/2021 FINDINGS/IMPRESSION: Currently there is normal compressibility of the deep venous system from the common femoral vein through the proximal calf veins. No superficial venous thrombosis is identified. ACT 112: Negative or not required by law. Electronically signed by: Ford Ang M.D. 01/10/2023 1:40 PM Chest X-Ray 01/10/23 17:15 XR chest 1V portable HISTORY: 82 years-old Female dyspnea, b/l basilar rales acute shortness of breath COMPARISON: CT chest 01/09/2023 TECHNIQUE: AP view of the chest FINDINGS: Cardiac silhouette is enlarged. Mild chronic interstitial coarsening. No pneumothorax, overt pulmonary edema or airspace consolidation typical for pneumonia. Trace pleural effusions redemonstrated. Bones appear grossly intact. IMPRESSION: 1. Cardiomegaly without overt pulmonary edema. 2. Trace pleural effusions redemonstrated. ACT 112: Negative or not required by law. The above report was generated using voice recognition software. It may contain grammatical, syntax or spelling errors. Electronically signed by: Moe Starkey M.D. 01/10/2023 5:48 PM PG Care Time/CCT Total # of Minutes Spent Total Time Spent with Patient: Total time spent is greater than 50% in coordination of care (as documented) at patient's floor/unit and/or counseling patient: Coding Level of Care Code 81450 SUB INP/OBS CARE 3/50MIN Diagnoses Pulmonary emboli I26.99 Anaplasmosis A77.49 New onset atrial fibrillation I48.91 Sinus pause I45.5 UTI (urinary tract infection) N39.0 Dyspnea on exertion R06.09 Type 2 diabetes mellitus with peripheral neuropathy E11.42 Chronic low back pain M54.5; G89.29 Obstructive sleep apnea G47.33 Hypertension I10 Hyperlipidemia E78.2 Hyperlipidemia type: mixed hyperlipidemia Esophageal thickening K22.89 Coronary artery calcification I25.10; I25.84 Pancytopenia D61.818 Elevated AST (SGOT) R74.01 Hypokalemia E87.6 Dysphagia R13.10 Demand ischemia of myocardium I24.8 Thyroid nodule E04.1 Bibasilar crackles R09.89 (11) Hyperlipidemia Hyperlipidemia type: mixed hyperlipidemia Qualified Code(s): E78.2 - Mixed hyperlipidemia
[2023-01-10] MEDS: APIXABAN 5 MG TABLET PO SCH (21:16)
[2023-01-10] MEDS: ONDANSETRON INJ 2 MG/ML 2 ML VIAL IV PRN (21:16)
[2023-01-11 06:51] LABS: Hematocrit (blood only) 30.4 % (37.0-47.0); Hemoglobin 10.6 g/dl (12.0-16.0); Mean Corpuscular Hemoglobin 29.9 pg (25.0-34.0); Mean Corpuscular Hgb Conc 34.9 g/dL (32.0-36.0); Mean Corpuscular Volume 85.9 fL (80.0-100.0); Platelet Count 147 K/uL (130-400); RDW Coefficient of Variation 14.3 % (11.5-14.5); RDW Standard Deviation 44.7 fL (36.4-46.3); Red Blood Count 3.54 M/uL (4.20-5.40); White Blood Count 6.28 K/ul (4.8-10.8)
[2023-01-11 07:08] LABS: BUN Creatinine Ratio 16.4 (10-20); Calcium 8.4 mg/dl (8.6-10.3); Creatinine Clr Calc Pharmacy 66.5 ml/min; Est GFR (African American) 94.2 ml/min; Est GFR (Non-African American) 81.3 ml/min; Potassium 3.3 mmol/L (3.5-5.1)
[2023-01-11] MEDS ORDERED: FUROSEMIDE INJ 20 MG/2 ML VIAL IV ONE (07:30)
[2023-01-11] MEDS: LANTUS PER UNIT CHARGE SQ SCH (08:04)
[2023-01-11] MEDS: INSULIN ASPART PER UNIT CHARGE SC SCH ×2 (08:04→12:33)
[2023-01-11] MEDS: APIXABAN 5 MG TABLET PO SCH (08:08)
[2023-01-11] MEDS: SIMVASTATIN 10 MG TAB PO SCH (08:08)
[2023-01-11] MEDS: SUCRALFATE 1 GM/10 ML UDC PO SCH (08:08)
[2023-01-11] MEDS: DOXYCYCLINE HYCLATE 100 MG in DEXTROSE 5% 100 ML IV SCH (08:08)
[2023-01-11] MEDS: PANTOprazole 40 MG TAB PO SCH (08:08)
--- NOTE | 2023-01-11 13:03 | Discharge Summary ---
Date of Service January 11, 2023 Admission HPI Per Admitting Provider Fletcher Prasad is an 82-year-old female with a past medical history of lymphocytic plasmacytic colitis, hypertension, hyperlipidemia, DM 2 with retinopathy presents to the ER with fatigue, low back pain, and dysuria of ap proximately 3-4 days. Her symptoms began on Tuesday and she has had increasing fatigue, weakness, urinary frequency, and a temperature of 991 100.2 with fever and chills while at home. Q1H urine voids with burning last 3-4 days. Has R flank pain as well Has had chills/shakes Fever tuesday up to 100.2 MOstly back pain, no knee/shoulder pain Denies rashes and tick bites but [place] in a wooden area No leg edema Denies orthopnea Denies any chest pain, chest pressure Shortness of breath with rapid exertional dyspnea/exercise intolerance No wheezing Medical History: Reviewed Medications: Reviewed Surgical History: Reviewed Family history: Reviewed Allergies: Reviewed Social History: No tobacco use, no etoh use Code Status: Principal Diagnosis PE Discharge Exam The patient is awake, alert and oriented 3, well developed and well nourished, normocephalic and atraumatic, lying in bed and in no acute distress. HEENT--PERRL, EOMI, mucous membranes and oropharynx mildly dry Neck--supple. No JVD. No bruits. Thyroid normal, trachea midline, no adenopathy. Heart--normal S1 and S2. No murmurs, rubs or gallops. Lungs--clear bilaterally, no respiratory distress, no accessory muscle use. Abdomen--normal bowel sounds and soft. Mild epigastric and left sided abdominal pain Extremities--no cyanosis or clubbing. No edema. Dermatologic--normal skin turgor, normal color, no abnormal lymph nodes, no rash. Neurologic--cranial nerves II through XII grossly intact. Rheumatologic--normal range of motion. Psychiatric--normal affect. Discharge Data Allergies Allergy/AdvReac Type Severity Reaction Status Date / Time No Known Allergies Allergy Verified 01/06/23 17:22 Consultations 01/06/23 17:21 ED Decision to Admit Stat 01/08/23 10:26 Consult Cardiology Routine Ordered Studies 01/06/23 12:04 CT abd pelvis IV con only Stat 01/09/23 15:31 CT angio chest PE protocol Routine 01/10/23 09:15 FL barium swallow Routine 01/10/23 10:04 US venous doppler LE Routine Hospital Course (1) Pulmonary emboli: CTA Chest with multiple b/l PEs. Suspect that at least some of her dyspnea on exertion over the last 3 months has been due in part throwing PEs over time. Fortunately she remains hemodynamically stable and O2 sats are wnl. Perhaps her PEs contributed in some fashion to the development of rapid a.fib. Recent echo with normal RV function. I suspect the patient has a genetic mutation or other hypercoagulable state that led to this. Both her own mother and her daughter have had VTE. Later today stop heparin drip. Transition to Eliquis 10mg BID x 7 days followed by 5mg BID. She may need anticoagulation indefinitely as her PEs are unprovoked and due to a.fib. In light of esophageal abnormalities and dysphagia recommend EGD as outpatient with GI - will [place] [facility] [place] [facility] CBC in am to recheck platelets but they continue to improve. Of note - dopplers of legs neg for DVT> (2) Anaplasmosis: IMPROVING clinical symptoms/history, elevated AST, leukopenia, thrombocytopenia, and +anaplasmosis smear ALL c/w anaplasmosis infection cont doxycycline - plan 14 day course - today is day #5 of Rx cont IV formulation due to recent swallowing issues & likely esophagitis (esophageal thickening seen on CT scan). Lyme screen is negative CPK is normal WBC count has normalized platelets trending up repeat CBC in am to ensure platelets have normalized (3) New onset atrial fibrillation: Had such from evening of 01/07/23 to AM of 01/09/23 Converted to NSR while on amiodarone drip I suspect the stress of her anaplasmosis illness precipitated the a.fib. The newly discovered PEs could have also increased her risk of a.fib. CHADsVASC score is a 5. Echo 01/07 with preserved EF and normal wall motion without significant valvular disease. TSH is wnl. Amiodarone drip has been stopped She remains in NSR Now on eliquis Was seen by cardiology earlier in stay for this issue, for outpatient follow up (4) Sinus pause: The patient had a 6+ second pause the AM of 01/08/23. There were a few minor pauses immediately preceding the long pause. These pauses occurred while she was having difficulty swallowing her medications. Suspect the pause was vagally-mediated. No pauses since that event. (5) UTI (urinary tract infection): ruled out (6) Dyspnea on exertion: chronic, present for about 3 months no dyspnea at rest no nocturnal symptoms denies associated chest pain/tightness CT a/p shows "extensive" coronary artery calcifications she has numerous CAD risk factors (HTN, lipids, DM, etc) will recommend outpatient stress test after anaplasmosis resolves echo this admission with preserved EF, normal LV wall motion in addition, we have now discovered b/l PEs if she has been throwing PEs for some time certainly the PEs could have been contributing to her symptoms (7) Type 2 diabetes mellitus with peripheral neuropathy: uncontrolled but improving with adjustment of novolog/lantus a1c 8.9% has not had a hemoglobin a1c below 8% in 5+ years consider a basal insulin at d/c in addition to her metformin - if she is willing to take such (8) Chronic low back pain: controlled (9) Obstructive sleep apnea: (10) Hypertension: HOLD amlodipine and enalapril to allow more room for BP in the setting of her recent rapid a.fib If she needs BP control consider low-dose metoprolol (11) Hyperlipidemia: cont simvastatin - only the AST was mildly high on LFTs and the AST is stable (12) Esophageal thickening: likely due to GERD started PPI added carafate qid would benefit from GI referral for consideration of EGD to ensure nothing else is going on in esophagus and in light of the dysphagia she has had for 12 months along with unprovoked PEs (13) Coronary artery calcification: seen on CT see above (14) Pancytopenia: likely 2nd to anaplasmosis infection resolving nicely (15) Elevated AST (SGOT): likely 2nd to anaplasmosis (16) Hypokalemia: replaced resolved mag level is wnl (17) Dysphagia: appreciate speech therapy consult barium swallow completed - had findings of dysmotility and GERD cont PPI + carafate remains on minced/moist diet send to GI post-d/c (18) Demand ischemia of myocardium: peak HS trop 52 early in the stay this was 2nd to demand ischemia in the setting of anaplasmosis infection, etc (19) Thyroid nodule: seen incidentally on CTA chest 1.9cm in size on RIGHT advise referral [place] [facility] [place] [place] for u/s and other w/u TFTs wnl (20) Bibasilar crackles: CXR obtained today -- read as chronic interstitial thickening however, this could be pulmonary edema in the setting of recent rapid a.fib, etc lasix 20mg IV x 1 Plan cont PT given her weakness daughter updated at bedside yesterday [id number] (Maranda Prasad - phone # is in chart) updated by phone this evening Total Time Total Time Spent Total Time Spent (In Minutes): 35 Discharge Plan Discharge Items Patient Disposition: Home - Self-Care Reason For Visit: ANAPLASMOSIS, ?UTI, CARDIAC EVAL Discharge Diagnosis: PE, anaplasmosis Activity: Resume your previous activity Non-emergency contact: Primary Care Provider and Loan Inspector Call non-emergency contact if: you have any medication questions Follow-up/Referrals: Eduardo Dos Santos MD [Primary Care Provider] - 01/12/23 3:00 pm (Follow up with Dr. Dos Santos 01/12/23 @ 3 pm) Isael Cortés DO [Physician] - 01/18/23 1:40 pm (Appointment scheduled on 01/18/23 @ 1:40 pm with Samm Macedo) Bruce Chavez MD [Physician] - 03/01/23 11:45 am (Appointment scheduled on 03/01/23 @ 11:[address] Layton) Diet: Regular Addtl Attending Provider Instructions: please make appointment to follow up with cardiology, Endocrinology for your thyroid nodule and also gastroenterology if you continue to have difficulty swalowing Pending Studies at Discharge: No Stand-Alone Forms: My Par[employer], Smoking Cessation Medications and DC Order Prescriptions: New pantoprazole 40 mg Tablet,Delayed Release (Dr/Ec) 40 mg PO QAM 30 Days Qty: 30 0RF Eliquis 5 mg Tablet 10 mg PO BID 7 Days Qty: 28 0RF Eliquis 5 mg (74 tabs) tablets,dose pack 5 mg PO BID Qty: 74 0RF doxycycline monohydrate 100 mg capsule 100 mg PO BID 10 Days Qty: 20 0RF Continued (DME) blood-glucose meter [FreeStyle Lite Meter] Kit See Rx Instructions .ROUTE .MEDSUPPLY Qty: 1 0RF Rx Instructions: As directed (DME) lancets [FreeStyle Lancets] 28 gauge misc See Rx Instructions .Route Qty: 200 3RF Rx Instructions: Test blood sugars twice a day simvastatin 10 mg tablet See Rx Instructions .ROUTE .COMPLEX Qty: 90 3RF Dose Instruction: TAKE 1 TABLET BY MOUTH DAILY Rx Instructions: TAKE 1 TABLET BY MOUTH DAILY amlodipine-benazepril 5-10 mg capsule See Rx Instructions .ROUTE .COMPLEX Qty: 90 3RF Dose Instruction: TAKE 1 CAPSULE BY MOUTH EVERY DAY Rx Instructions: TAKE 1 CAPSULE BY MOUTH EVERY DAY metformin 500 mg tablet extended release 24 hr 500 mg PO DAILY Qty: 90 2RF calcium carbonate 600 mg calcium (1,500 mg) tablet 600 mg PO QAM multivitamin tablet 1 tab PO QAM (DME) pen needle, diabetic [BD Ultra-Fine Marquita Pen Needle] 32 gauge x 5/32" needle See Rx Instructions .ROUTE .MEDSUPPLY Dose Instruction: As directed Rx Instructions: Inject insulin twice daily insulin asp prt-insulin aspart [Novolog Mix 70-30FlexPen U-100] 100 unit/mL (70-30) insulin pen See Rx Instructions subcut DAILY Qty: 15 5RF Rx Instructions: 10 units with breakfast, 5 units with lunch and 3 units with dinner subcutaneously daily; TDD up to 20 units Discharge Orders: Discharge Order (Routine); Ordered 01/11/23 Ordered By: Bárbara Moses Admission Data Admit Date/Time: 01/06/23 17:30 Attending Provider: Bárbara Moses Admit Provider: Eduardo Johnston Primary Care Provider: Eduardo Dos Santos Other Providers: Eduardo Johnston ; Bruce Chavez Other Interventions: Discharge Summary Assessment (RN) Last Done: 01/11/23 12:49 Coding Level of Care Code 99015 INP/OBS DISCH >30 MIN Diagnoses Pulmonary emboli I26.99 Anaplasmosis A77.49 New onset atrial fibrillation I48.91 Sinus pause I45.5 UTI (urinary tract infection) N39.0 Dyspnea on exertion R06.09 Type 2 diabetes mellitus with peripheral neuropathy E11.42 Chronic low back pain M54.5; G89.29 Obstructive sleep apnea G47.33 Hypertension I10 Hyperlipidemia E78.2 Hyperlipidemia type: mixed hyperlipidemia Esophageal thickening K22.89 Coronary artery calcification I25.10; I25.84 Pancytopenia D61.818 Elevated AST (SGOT) R74.01 Hypokalemia E87.6 Dysphagia R13.10 Demand ischemia of myocardium I24.8 Thyroid nodule E04.1 Bibasilar crackles R09.89 Time Spent (min) 35
== END 2023-01-11 13:42 | disposition home or self-care (01) | DRG 867 ==
LOC: ED 10:23 → SUATTDRO 17:30 → 2N 17:30 → 2E 01-08 09:23

== ENCOUNTER 2023-01-23 10:59 | Inpatient (IN) ==
[2023-01-23] MEDS ORDERED: SODIUM CHLORIDE 0.9% 1000ML 500 ML IV ONE (11:34)
[2023-01-23] MEDS ORDERED: fentaNYL citrate PF 100 MCG/2 ML VIAL IV STA ×2 (11:34→14:06)
--- NOTE | 2023-01-23 11:38 | Emergency Department Note ---
Impression & Plan Stercoral colitis, Constipation, Failure of outpatient treatment ED Provider Note Name: PER CHAVARRIA Age: 82 Sex: F Arrives Via: Walk-In Informant: Patient, family ED Provider: Rivera Hull MD Chief Complaint: Constipation Impression: As per impressions above Medical Decision Makin-year-old pleasant female arrives for evaluation of constipation. 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 She is pretty much not had normal bowel movement in over 2 weeks. She has been seen by ER and by GI for this without successful bowel movement. Patient arrives in quite some discomfort. On examination she has a soft nontender nonsurgical abdomen. A rectal exam was performed which shows brown stool with a large stool ball in the upper vault. Patient was given some IV pain medications as this was quite uncomfortable. Further attempts at rectal disimpaction only got a small amount of stool comparatively. Due to the amount of pain she was continuing to have a CT was obtained which does show some stercoral colitis and significant stool burden. White blood cell count is not severely elevated she is not a pensive does not have fever I do not think she is infected at this time. I am quite concerned though given the amount of stool in the inability for multiple different outpatient management techniques to fail. We did try an enema here with molasses without any success either. Discussed case with GI who suggested mineral oil enema and a colon prep as well from above. I discussed the case with the hospitalist that she will clearly need to come in to get this ironed out. They noted they would further follow-up for this 8 cm rectal size and rediscussed with GI as well. Patient and family are both on board with this plan. Prior Medical Record and Triage/Nursing Notes reviewed by Me External charts including outpatient GI records reviewed by me Differentials:Constipation, obstruction, abscess, hemorrhoid Vital Signs: reviewed and remarkable for no significant abnormalities Interventions: Fentanyl IV x2, normal saline bolus, Zofran IV, molasses enema Labs:Reviewed and remarkable for no significant abnormalities Imaging:CT of the abdomen pelvis with IV contrast shows large amount of stool throughout the rectum and colon without any obstructive findings necessarily noted nor free air or free fluid. See radiologist read for full including stercoral colitis Consults:Dr Mello GI, Dr Johnston [place] Hospitalist Plan: Disposition:Hospitalization. Condition: Good History of Present Illness:82-year-old female arrives for evaluation of constipation. Patient has not had a normal bowel movement in the last 2 weeks. She noted some small pieces of stool up until about 4 to 5 days ago and she is now no bowel outs. She is still passing gas. She has a small hemorrhoid that she is treating with a steroid cream. She was seen by GI few days ago who prescribed her 2 bottles of MiraLAX as well as multiple doses of Dulcolax. She has had no bowel outs since all of this. She notes a bit of diffuse abdominal cramping but no specific pain. She does note she has been quite weak since she was hospitalized a few weeks ago for anaplasmosis. She does get tired quite easily. She denies any specific chest pain, shortness of breath, syncope, palpitation, fevers, chills, back pain, urinary burning, leg swelling or other concerning signs or symptoms. She does have mild bilateral ankle swelling which is not overly uncommon for her. Past History:See Below Home Medications:See Below Allergies:See Below Vitals:Blood Pressure: 173/74, Pulse 85, RR 20, T 37C, O2 96% on RA Physical Exam: GENERAL: Patient is very anxious appearing and in mild distress. EYES: No scleral icterus, unremarkable pupils. ENT: Mucous membranes moist, no nasal congestion. NECK: No masses appreciated, nomeningismus, trachea is midline. RESPIRATORY: No dyspnea. Clear to auscultation and equal bilaterally. No wheeze, no rhonchi. CARDIOVASCULAR: Regular rate and rhythm.No murmurs, rubs, gallops appreciated. GASTROINTESTINAL: Abdomen soft, non-tender, no peritonitis.Bowel sounds positive.No masses appreciated. BACK: No midline tenderness, no CVA tenderness RECTAL: large firm stool ball in rectum, brown stool. small anterior hemorrhoid. EXTREMITIES: Normal motion all extremities, no cyanosis, no edema. NEUROLOGIC: Alert and oriented, no focal neurologic deficit SKIN: No rash, no jaundice, no diaphoresis. PSYCH: Appropriate GCS: 15 ED Course: Times/Reassessments: Patient continues to be uncomfortable although not septic or in extremis. Agreeable to hospitalization for management of constipation and the pain she is having. 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 Per records Obstructive sleep apnea Could not tolerate device Osteopenia after menopause Type 2 diabetes mellitus with peripheral neuropathy IDDM Surgical History H/O tubal ligation History of ankle surgery Left History of cataract surgery R/L History of colonoscopy History of tooth extraction Status post right partial knee replacement Family History Father Stroke Mother Diabetes Grandmother (Maternal) Diabetes Denies family history of Ovarian cancer Prostate cancer Myocardial infarction Breast cancer Lung cancer Colorectal cancer Social History Smoking Status: Never smoker Second Hand Exposure: No; Do You Dip or Chew Tobacco: No; Tobacco Cessation Education Requested by Patient: No Hx Alcohol Use: No Hx Substance Use: No Preferred Language: Sudanese Communication Ability: Effective Visual Impairment: Limited Hearing Ability: Use of Hearing Aid Commercial Specialist Required: No Beliefs That Will Affect Care: None marital status: / Current Living Situation: Alone Current Living Situation Comment: Grandson in a nearby apartment current occupational status: retired How many Children do You have: 3 Other Information That Helps Us Care for You: No Feels Safe at Home: Yes Safety Concerns: Feels Safe At This Time Childhood Exposure to Second-Hand Smoke: No caffeine: Yes Dental Care, Regularly: Yes Physical Activity Frequency: 1-2 Times per Week Seatbelt Use: always Sunscreen Use: Yes Assistive Devices: Cane and Walker Assistive Devices Comment: Glasses are here. Hearing aid at home Allergies Allergies Allergy/AdvReac Type Severity Reaction Status Date / Time No Known Allergies Allergy Verified 01/18/23 13:29 Home Meds Home Medications Medication Instructions Recorded Confirmed multivitamin 0 tab PO QAM 04/13/19 01/23/23 pen needle, diabetic 32 gauge x 10/15/22 01/18/23 5/32" (BD Ultra-Fine Marquita Pen Needle) amlodipine 5 mg-benazepril 10 mg 1 cap PO DAILY 01/15/23 01/23/23 capsule apixaban 5 mg (74 tabs) tablets in 0 mg PO BID 01/15/23 01/23/23 a dose pack (Eliquis) simvastatin 10 mg tablet 10 mg PO HS 01/15/23 01/23/23 sucralfate 1 gram tablet (Carafate) 0 g PO BID 01/18/23 01/18/23 doxycycline monohydrate 100 mg 100 mg PO BID 01/23/23 01/23/23 capsule plecanatide 3 mg tablet (Trulance) 0 mg PO DAILY 01/23/23 Previous Rx's Medication Instructions Recorded FreeStyle Lite Meter #1 ea 12/30/20 (blood-glucose meter) lancets 28 gauge (FreeStyle #200 ea 04/15/21 Lancets) insulin aspar prot-insulin aspart See Rx Instructions subcut DAILY 11/24/22 100 unit/mL (70-30) subcutaneous #15 mL pen (Novolog Mix 70-30FlexPen U-100) metformin 500 mg tablet,extended 500 mg PO DAILY #90 tabs 12/28/22 release 24 hr hydrocortisone 2.5 % topical cream 1 applic ME DAILY PRN hemorrhoids 01/18/23 with perineal applicator #30 grams (Anusol-HC) pantoprazole 40 mg tablet,delayed 40 mg PO QAM #90 tabs 01/18/23 release Results & Data (ED) Vital Signs Vital Signs - 24 hr 01/23/23 11:06 Temperature 37 C Temperature Source Temporal Artery Scan Pulse Rate 85 Respiratory Rate 20 Respiratory Effort / Characteristics Non-Labored Spontaneous Respiratory Depth Normal Blood Pressure 173/74 H Blood Pressure Mean 107 Blood Pressure Position Sitting Pulse Oximetry 96 Oxygen Delivery Method Room Air Sepsis Recent Fever Within 48 Hours No Sepsis New/Unexplained Change in Mental Status No Sepsis Action Taken by Nursing No Action Required Laboratory Data 01/23/23 11:48 01/23/23 11:48 Lab Results 01/23/23 01/23/23 01/23/23 Range/Units 11:48 11:48 14:50 WBC 4.52 L (4.8-10.8) K/ul RBC 3.69 L (4.20-5.40) M/uL Hgb 11.2 L (12.0-16.0) g/dl Hct 33.3 L (37.0-47.0) % MCV 90.2 (80.0-100.0) fL MCH 30.4 (25.0-34.0) pg MCHC 33.6 (32.0-36.0) g/dL RDW Std Deviation 49.1 H (36.4-46.3) fL RDW Coeff of Trena 15.0 H (11.5-14.5) % Plt Count 216 (130-400) K/uL MPV 12.6 H (9.4-12.4) fL Immature Gran % (Auto) 0.2 % Neut % (Auto) 40.6 % Lymph % (Auto) 51.1 % [place] % (Auto) 7.5 % Eos % (Auto) 0.4 % Baso % (Auto) 0.2 % Neut # (Auto) 1.83 (1.40-6.50) K/uL Lymph # (Auto) 2.31 (1.2-3.4) K/uL [place] # (Auto) 0.34 (0.11-0.59) K/uL Eos # (Auto) 0.02 (0-0.50) K/uL Baso # (Auto) 0.01 (0-0.2) K/uL Immature Gran # (Auto) 0.01 (0.01-0.20) K/uL RBC Morphology Unremarkable Sodium 141 (136-145) mmol/L Potassium 3.7 (3.5-5.1) mmol/L Chloride 108 H (98-107) mmol/L Carbon Dioxide 24 (21-32) mmol/L Anion Gap 9 (3-11) BUN 10 (6-23) mg/dl Creatinine 0.65 (0.6-1.2) mg/dl Est Cr Clr Drug Dosing 66.0 ml/min Est GFR ( Amer) 95.2 ml/min Est GFR (Non-Af Amer) 82.1 ml/min BUN/Creatinine Ratio 15.4 (10-20) Glucose 117 H (70-99(Fasting)) mg/dl Calcium 8.6 (8.6-10.3) mg/dl Magnesium 1.9 (1.7-2.4) mg/dl Total Bilirubin 0.5 (0.2-1.0) mg/dl Direct Bilirubin 0.1 (0-0.2) mg/dl AST 20 (13-39) U/L ALT 15 (7-52) U/L Alkaline Phosphatase 60 (34-104) U/L Total Protein 6.4 (6.0-8.3) gm/dl Albumin 3.6 (3.4-5.0) gm/dl SARS-CoV-2, RNA, NAAT NEGATIVE (NEGATIVE) Administered Medications Acetaminophen (Acetaminophen 325 Mg Tab) 650 mg PO Q4H PRN PRN Reason: pain/fever Stop: 02/22/23 17:31 Last Admin: 01/24/23 10:28 Dose: 650 mg Documented By: Admin: 01/24/23 06:27 Dose: 650 mg Documented By: Admin: 01/24/23 01:46 Dose: 650 mg Documented By: Admin: 01/23/23 20:42 Dose: 650 mg Documented By: SUSHILA Amlodipine Besylate (Amlodipine Besylate 5 Mg Tab) 5 mg PO DAILY [facility] Stop: 02/23/23 08:59 Last Admin: 01/24/23 08:28 Dose: 5 mg Documented By: ANGE Apixaban (Apixaban 5 Mg Tablet) 5 mg PO BID [facility] Stop: 02/22/23 20:59 Last Admin: 01/24/23 08:28 Dose: 5 mg Documented By: Admin: 01/23/23 21:01 Dose: 5 mg Documented By: SHANKAR Docusate Sodium (Docusate Sodium 100 Mg Cap) 100 mg PO BID [facility] Stop: 02/23/23 10:29 Last Admin: 01/24/23 10:33 Dose: 100 mg Documented By: ANGE Enalapril Maleate (Enalapril Maleate 10 Mg Tab) 10 mg PO DAILY [facility] [place] Stop: 02/23/23 08:59 Last Admin: 01/24/23 08:28 Dose: 10 mg Documented By: ANGE Hydrocortisone (Hydrocortisone Hc 2.5% Crm 30gm Tube) 1 appln EXT DAILY PRN PRN Reason: hemorrhoids Stop: 02/22/23 17:31 Last Admin: 01/24/23 10:35 Dose: 1 appln Documented By: ANGE Insulin Aspart (Insulin Aspart Per Unit Charge) 0 units SC ACHS [facility] Stop: 02/22/23 17:31 Last Admin: 01/24/23 13:10 Dose: 2 units Documented By: ANGE Co-signed By: DEYSI Admin: 01/24/23 08:58 Dose: 2 units Documented By: ANGE Co-signed By: DEYSI Admin: 01/23/23 21:02 Dose: Not Given Documented By: SHANKAR Co-signed By: SUSHILA Admin: 01/23/23 18:27 Dose: Not Given Documented By: LUISA Co-signed By: AMIE Insulin Glargine (Lantus Per Unit Charge) 7 units SQ BID [facility] Stop: 02/22/23 20:59 Last Admin: 01/24/23 08:58 Dose: 7 units Documented By: ANGE Co-signed By: DEYSI Admin: 01/23/23 21:06 Dose: 7 units Documented By: SHANKAR Co-signed By: SUSHILA Pantoprazole Sodium (Pantoprazole 40 Mg Tab) 40 mg PO QAM ARI Stop: 02/23/23 08:59 Last Admin: 01/24/23 08:28 Dose: 40 mg Documented By: ANGE Polyethylene Glycol (Polyethylene (Miralax) 17 Gm Pack) 17 gm PO BID ARI Stop: 02/23/23 10:29 Last Admin: 01/24/23 10:32 Dose: 17 gm Documented By: ANGE Simvastatin (Simvastatin 10 Mg Tab) 10 mg PO HS [facility] Stop: 02/22/23 20:59 Last Admin: 01/23/23 21:01 Dose: 10 mg Documented By: SHANKAR Discontinued Medications Fentanyl Citrate (Fentanyl Citrate Pf 100 Mcg/2 Ml Vial) 50 mcg IV NOW STA Stop: 01/23/23 11:35 Last Admin: 01/23/23 12:00 Dose: 50 mcg Documented By: OJ Fentanyl Citrate (Fentanyl Citrate Pf 100 Mcg/2 Ml Vial) 75 mcg IV NOW STA Stop: 01/23/23 14:07 Last Admin: 01/23/23 14:24 Dose: 75 mcg Documented By: OJ Sodium Chloride (Nss 1000ml) 500 mls @ 999 mls/hr IV .Q31M ONE Stop: 01/23/23 12:04 Last Infusion: 01/23/23 12:51 Dose: 0 mls/hr Documented By: Admin: 01/23/23 11:56 Dose: 999 mls/hr Documented By: OJ Acetaminophen (Ofirmev) 1,000 mg in 100 mls @ 400 mls/hr IV NOW STA Stop: 01/23/23 13:13 Last Infusion: 01/23/23 13:40 Dose: 0 mls/hr Documented By: Admin: 01/23/23 13:09 Dose: 400 mls/hr Documented By: JESSIE Ioversol (Optiray 320 100ml) 93 ml IV ONCE ONE Stop: 01/23/23 13:39 Last Admin: 01/23/23 13:38 Dose: 93 ml Documented By: MIKO Ketorolac Tromethamine (Ketorolac 30 Mg/Ml Vial) 15 mg IV NOW ONE Stop: 01/24/23 11:34 Last Admin: 01/24/23 11:53 Dose: 15 mg Documented By: ANGE Mineral Oil (Mineral Oil Enema 133 Ml Btl) 133 ml ME Q60M ARI Stop: 01/23/23 19:33 Last Admin: 01/23/23 20:45 Dose: 133 ml Documented By: Admin: 01/23/23 19:30 Dose: 133 ml Documented By: Admin: 01/23/23 18:29 Dose: 133 ml Documented By: LUISA Polyethylene Glycol/Electrolytes (Lavage Solution 4000ml) 8 dose PO BID@1600,2100 [facility] Stop: 01/24/23 06:00 Last Admin: 01/23/23 21:02 Dose: 8 dose Documented By: Admin: 01/23/23 18:36 Dose: 8 dose Documented By: LUISA Sodium Biphosphate/Sodium Phosphate (Sod Phosphate/Sod Biphosphate Enema 132 Ml Btl) 132 ml ME NOW ONE Stop: 01/24/23 11:28 Last Admin: 01/24/23 11:53 Dose: 132 ml Documented By: ANGE Sodium Biphosphate/Sodium Phosphate (Sod Phosphate/Sod Biphosphate Enema 132 Ml Btl) 132 ml ME NOW ONE Stop: 01/24/23 11:28 Last Admin: 01/24/23 11:53 Dose: 132 ml Documented By: ANGE Discharge Plan Visit Data Chief Complaint: GI Assessment Stated Complaint: CONSTIPATION FOR 2 WEEKS,HAD 2 ENEMAS,DIDNT WORK ED Provider: Rivera Hull Discharge Problem: Stercoral colitis, Constipation, Failure of outpatient treatment Patient Disposition: Admitted As Inpatient Discharge Instructions Interventions: ED Discharge Assessment Last Done: 01/23/23 17:30 Constipation Qualifiers: Constipation type: unspecified constipation type Qualified Code(s): K59.00 - Constipation, unspecified
[2023-01-23 12:13] LABS: Hematocrit (blood only) 33.3 % (37.0-47.0); Hemoglobin 11.2 g/dl (12.0-16.0); Mean Corpuscular Hemoglobin 30.4 pg (25.0-34.0); Mean Corpuscular Hgb Conc 33.6 g/dL (32.0-36.0); Mean Corpuscular Volume 90.2 fL (80.0-100.0); Mean Platelet Volume 12.6 fL (9.4-12.4); Platelet Count 216 K/uL (130-400); RDW Standard Deviation 49.1 fL (36.4-46.3); Red Blood Count 3.69 M/uL (4.20-5.40); White Blood Count 4.52 K/ul (4.8-10.8)
[2023-01-23 12:26] LABS: Albumin Level 3.6 gm/dl (3.4-5.0); BUN Creatinine Ratio 15.4 (10-20); Bilirubin Direct 0.1 mg/dl (0-0.2); Bilirubin,Total 0.5 mg/dl (0.2-1.0); Calcium 8.6 mg/dl (8.6-10.3); Est GFR (African American) 95.2 ml/min; Est GFR (Non-African American) 82.1 ml/min; Magnesium 1.9 mg/dl (1.7-2.4); Potassium 3.7 mmol/L (3.5-5.1); Total Protein 6.4 gm/dl (6.0-8.3)
[2023-01-23 12:36] LABS: Basophils # (auto) 0.01 K/uL (0-0.2); Basophils % (auto) 0.2 %; Eosinophils # (auto) 0.02 K/uL (0-0.50); Eosinophils % (auto) 0.4 %; Immature Granulocytes # (auto) 0.01 K/uL (0.01-0.20); Immature Granulocytes % (auto) 0.2 %; Lymphocytes # (auto) 2.31 K/uL (1.2-3.4); Lymphocytes % (auto) 51.1 %; Monocytes # (auto) 0.34 K/uL (0.11-0.59); Monocytes % (auto) 7.5 %; Neutrophils # (auto) 1.83 K/uL (1.40-6.50); Neutrophils % (auto) 40.6 %; RBC Morphology Unremarkable
[2023-01-23] MEDS ORDERED: ACETAMINOPHEN 1,000 MG/100 ML VIAL IV STA (12:59)
[2023-01-23] MEDS ORDERED: OPTIRAY 320 100ml IV ONE (13:38)
--- NOTE | 2023-01-23 14:01 | CT Scan Report ---
CT OF THE ABDOMEN AND PELVIS WITH CONTRAST CLINICAL HISTORY: Constipation, worsening pelvic pain. COMPARISON STUDY: CT of the abdomen and pelvis January 06, 2023 and KUB January 19, 2023. TECHNIQUE: Following IV administration of 93 mL of Optiray, axial images of the abdomen and pelvis we re obtained from the lung bases to the proximal femurs. Images were reviewed in the axial, sagittal, and coronal planes. IV contrast was administered without complication. Automated exposure control wa s utilized for the study. A dose lowering technique was utilized adhering to the principles of ALARA . CT DOSE: 1235.78 mGy.cm FINDINGS: No pneumatosis, free air or portal venous gas is present. A segment 7 hepatic lesion is unc hanged from earlier exams. This is benign. A lateral segment hepatic lesion is unchanged since prior exam. This is also likely benign. There are multiple gallstones within the gallbladder. There is no p ericholecystic infiltration. Spleen, adrenal glands and pancreas are unremarkable. Slight fullness of the collecting systems is likely related to bladder distention. A 3 cm left renal cyst is noted. The appendix is normal. Residual oral contrast from barium swallow is noted within the distal colon and rectum. There is a large amount of stool within the rectum. This has developed since CT of January 06 but is similar to KUB of January 19, 2023. Moderate perirectal/presacral stranding and fluid has deve loped since prior CT. Evaluation is suboptimal given streak artifact from the contrast. No extralumin al gas is present. No fluid collection is identified. No additional sites of inflammation are noted. There is no lymphadenopathy. No acute fractures are identified. IMPRESSION: 1. Large amount of stool within the rectum, similar to KUB of January 19, 2023. Interval development of moderate perirectal/presacral stranding and fluid since CT of January 06, 2023. This suggests stercoral c olitis given the large amount of stool. No extraluminal gas. 2. Residual contrast within the distal colon and rectum from barium swallow. No bowel obstruction. 3. Cholelithiasis. ACT 112: Negative or not required by law. Electronically signed by: Yusuf Barrera M.D. 01/23/2023 1:58 PM
--- NOTE | 2023-01-23 14:30 | History & Physical Report ---
Date of Service January 23, 2023 Assessment & Plan (1) Constipation: Plan: GI - Dr Mello on consult - Mineral oil enemas - Golytely prep - Encourage up and OOB - KUB in the AM - Zofran prn (2) Pulmonary emboli: Plan: - Continue Eliquis (3) Paroxysmal A-fib: Plan: Regular rhythm today continue eliquis (4) Hypertension: Plan: chronic and stable continue amlodipine benazepril (5) Hyperlipidemia: Plan: Chronic and stable continue simvastatin (6) Diabetes mellitus type 2 in obese: Plan: chronic and stable ISS while admitted Metformin on hold HGBA1C in September was 8.9 (7) GERD (gastroesophageal reflux disease): Plan: chronic and stable continue PPI History of Present Illness Chief Complaint: constipation Primary Care Provider: Eduardo Dos Santos MD Nathaly Prasad is a 82 year old female with a past medical history of paroxysmal A Fib, pulmonary embolism on Eliquis, HTN, Diabetes, GERD, Hyperlipidemia and also recent anaplasmosis who presented today to the ER with complaints of severe constipation with no BM in 2 weeks. Patient was recently admitted with anaplasmosis, new onset A Fib and PE. She thinks the constipation began during that admission. She had a visit at the GI office on 01/18/23 and was Rx Anusol HC for her hemorrhoids, and told to take rx trulance 3mg with miralax 17 gm TID. She did this x 2 days and with out any BM she was instructed by GI to have a KUB. She had the abdominal xray and was told to take a whole bottle of miralax in 2 bottles of gatorade. She states she still failed to have any BM. Patient was evaluated in the ER had a CTAP revealing - Large amount of stool within the rectum, similar to KUB of January 19, 2023. Interval development of moderate perirectal/presacral stranding and fluid since CT of January 06, 2023. This suggests stercoral colitis given the large amount of stool. No extraluminal gas. Residual contrast within the distal colon and rectum from barium swallow. No bowel obstruction. Cholelithiasis. CT images reviewed by myself and Dr Johnston colon measures 81.5mm. Dr Hull and myself have spoke to Dr Mello and notified him of patient and her CT findings. He suggested mineral oil enemas and prep from above. Patient denies any vomiting, she admits to some slight nausea, she denies any chest pain, cough, SOB or dyspnea. She denies any abdominal pain but states her abdomen feels full and she does not have much of an appetite. Per ER physician, manual disimpaction performed with minimal amount of stool removed Allergies Allergy/AdvReac Type Severity Reaction Status Date / Time No Known Allergies Allergy Verified 01/18/23 13:29 Home Medications Medication Instructions Recorded Confirmed Type multivitamin 1 tab PO QAM 04/13/19 01/18/23 History FreeStyle Lite Meter #1 ea 12/30/20 01/18/23 Rx (blood-glucose meter) lancets 28 gauge (FreeStyle #200 ea 04/15/21 01/18/23 Rx Lancets) pen needle, diabetic 32 gauge x 10/15/22 01/18/23 History 5/32" (BD Ultra-Fine Marquita Pen Needle) insulin aspar prot-insulin aspart See Rx Instructions subcut DAILY 11/24/22 01/18/23 Rx 100 unit/mL (70-30) subcutaneous #15 mL pen (Novolog Mix 70-30FlexPen U-100) metformin 500 mg tablet,extended 500 mg PO DAILY #90 tabs 12/28/22 01/18/23 Rx release 24 hr amlodipine 5 mg-benazepril 10 mg 1 cap PO DAILY 01/15/23 01/18/23 History capsule apixaban 5 mg (74 tabs) tablets in 0 mg PO BID 01/15/23 01/18/23 History a dose pack (Eliquis) simvastatin 10 mg tablet 10 mg PO HS 01/15/23 01/18/23 History hydrocortisone 2.5 % topical cream 1 applic [place] DAILY PRN hemorrhoids 01/18/23 01/18/23 Rx with perineal applicator #30 grams (Anusol-HC) pantoprazole 40 mg tablet,delayed 40 mg PO QAM #90 tabs 01/18/23 01/18/23 Rx release plecanatide 3 mg tablet (Trulance) 3 mg PO DAILY #30 tabs 01/18/23 01/18/23 Rx sucralfate 1 gram tablet (Carafate) 1 g PO BID 01/18/23 01/18/23 History Past Med/Surg History Medical History (Updated 01/23/23 @ 15:13 by Ghazal Morejon PA-C) Acute left-sided low back pain Chronic low back pain Diabetic retinopathy Encounter for pre-operative examination Gastroparesis Generalized osteoarthritis GERD (gastroesophageal reflux disease) controlled Hyperlipidemia Hypertension 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 Per records Obstructive sleep apnea Could not tolerate device Osteopenia after menopause Type 2 diabetes mellitus with peripheral neuropathy IDDM Surgical History H/O tubal ligation History of ankle surgery Left History of cataract surgery R/L History of colonoscopy History of tooth extraction Status post right partial knee replacement Family History Father Stroke Mother Diabetes Grandmother (Maternal) Diabetes Denies family history of Ovarian cancer Prostate cancer Myocardial infarction Breast cancer Lung cancer Colorectal cancer Social History Smoking Status: Never smoker Second Hand Exposure: No; Do You Dip or Chew Tobacco: No; Hx Alcohol Use: No Hx Substance Use: No Preferred Language: Tristanian Communication Ability: Effective Visual Impairment: Limited Hearing Ability: Use of Hearing Aid Sap Bw Bi Developer Required: No Beliefs That Will Affect Care: None marital status: / Current Living Situation: Alone Current Living Situation Comment: Grandson in a nearby apartment current occupational status: retired How many Children do You have: 3 Feels Safe at Home: Yes Childhood Exposure to Second-Hand Smoke: No caffeine: Yes Dental Care, Regularly: Yes Physical Activity Frequency: 1-2 Times per Week Seatbelt Use: always Sunscreen Use: Yes Assistive Devices: Cane Review of Systems Constitutional: + fatigue and + anorexia; no fever and no chills Respiratory: no cough, no chest congestion and no dyspnea Cardiovascular: no chest pain, no dyspnea, no lightheadedness, no edema and no calf pain Gastrointestinal: + nausea, + change in bowel habits and + constipation; no abdominal pain, no vomiting, no diarrhea/loose stools, no blood in stools and no melena Genitourinary: + urinary frequency; no dysuria, no difficulty urinating, no urinary hesitancy, no urinary urgency and no flank pain Integumentary: no rash, no lesions and no new lesions Endocrine: + fatigue; no polydipsia, no polyphagia and no polyuria Physical Exam Constitutional: well developed, well nourished and + obese appears uncomfortable Neck: trachea midline, no thyromegaly Respiratory: normal respiratory effort, lungs clear to auscultation Cardiovascular: Rate/Rhythm: regular rate and regular rhythm Heart Sounds: normal S1 and normal S2 Extremities: normal capillary refill; no calf tenderness trace edema bilateral ankles Gastrointestinal (Abdomen): Inspection/Auscultation: abdomen normal to inspection, + abdomen distended and normal bowel sounds distended but soft, no R/R/G Skin: no rashes, warm and dry Psychiatric: A+Ox3, euthymic affect Results & Data Results & Data Vital Signs (Past 12 Hours) Vital Signs Temp Pulse Pulse Resp BP BP Pulse Ox 01/23/23 12:45 79 01/23/23 12:12 79 17 159/91 H 97 01/23/23 11:06 37 C 85 20 173/74 H 96 O2 Del Method 01/23/23 12:45 01/23/23 12:12 Room Air 01/23/23 11:06 Room Air Laboratory Results Abnormal lab results 01/23/23 01/23/23 Range/Units 11:48 11:48 WBC 4.52 L (4.8-10.8) K/ul RBC 3.69 L (4.20-5.40) M/uL Hgb 11.2 L (12.0-16.0) g/dl Hct 33.3 L (37.0-47.0) % RDW Std Deviation 49.1 H (36.4-46.3) fL RDW Coeff of Trena 15.0 H (11.5-14.5) % MPV 12.6 H (9.4-12.4) fL Chloride 108 H (98-107) mmol/L Glucose 117 H (70-99(Fasting)) mg/dl Diagnostic Findings Abdomen/Pelvis CT 01/23/23 12:59 CT OF THE ABDOMEN AND PELVIS WITH CONTRAST CLINICAL HISTORY: Constipation, worsening pelvic pain. COMPARISON STUDY: CT of the abdomen and pelvis January 06, 2023 and KUB January 19, 2023. TECHNIQUE: Following IV administration of 93 mL of Optiray, axial images of the abdomen and pelvis were obtained from the lung bases to the proximal femurs. Images were reviewed in the axial, sagittal, and coronal planes. IV contrast was administered without complication. Automated exposure control was utilized for the study. A dose lowering technique was utilized adhering to the principles of ALARA. CT DOSE: 1235.78 mGy.cm FINDINGS: No pneumatosis, free air or portal venous gas is present. A segment 7 hepatic lesion is unchanged from earlier exams. This is benign. A lateral segment hepatic lesion is unchanged since prior exam. This is also likely benign. There are multiple gallstones within the gallbladder. There is no pericholecystic infiltration. Spleen, adrenal glands and pancreas are unremarkable. Slight fullness of the collecting systems is likely related to bladder distention. A 3 cm left renal cyst is noted. The appendix is normal. Residual oral contrast from barium swallow is noted within the distal colon and rectum. There is a large amount of stool within the rectum. This has developed since CT of January 06, 2023 but is similar to KUB of January 19, 2023. Moderate perirectal/presacral stranding and fluid has developed since prior CT. Evalu ation is suboptimal given streak artifact from the contrast. No extraluminal gas is present. No fluid collection is identified. No additional sites of inflammation are noted. There is no lymphadenopathy. No acute fractures are identified. IMPRESSION: 1. Large amount of stool within the rectum, similar to KUB of January 19, 2023. Interval development of moderate perirectal/presacral stranding and fluid since CT of January 06, 2023. This suggests stercoral colitis given the large amount of stool. No extraluminal gas. 2. Residual contrast within the distal colon and rectum from barium swallow. No bowel obstruction. 3. Cholelithiasis. ACT 112: Negative or not required by law. Electronically signed by: Yusuf Barrera M.D. 01/23/2023 1:58 PM Supervising Physician Co-Signing Physician Notes Patient seen and examined, chart reviewed, case discussed with Imelda Morejon PA-C and I agree with the assessment and plan as above except as otherwise noted Labs and images reviewed Patient seen at the bedside. She reports that she has been increasingly constipated since she was treated for anaplasmosis previously. She reports she does not drink much water, normally has a bowel movement every few days but has not had a bowel movement in the last 2 weeks. She did see GI and took MiraLAX 3 times a day for 2 days but it still has not had a bowel movement. Has had some liquid stool but without any formed or large bowel movement. Denies fever/chills. Does endorse that she feels very washed out/tired. Abdomen is softly distended and she has some discomfort on palpation, but no guarding/rigidity/rebound. Lungs are clear. Imaging reviewed, consistent with large amount of stool retention and stercoral colitis. Patient does have colonic dilation to 8.1 cm. GI consulted. Patient aware that I 8 cm does have a slightly increased risk of perforation. No signs of systemic/febrile illness at this time, follow fever curve. If patient with fever or worsening abdominal pain can cover for GI translocation at that time with Zosyn; if worsened abdominal pain/guarding/rigidity repeat abdominal imaging to evaluate for free air/periphery given increased risk. agree with GoLytely and mineral oil enemas. Suspect liquid stool she has been having is overflow. Agree with management of chronic medical issues above including continuation of Eliquis for A-fib stroke prophylaxis. PG Care Time/CCT Total # of Minutes Spent Total Time Spent with Patient: Total time spent is greater than 50% in coordination of care (as documented) at patient's floor/unit and/or counseling patient: Coding Level of Care Code 58476 INT INP/OBS CARE 2/55MIN Diagnoses Constipation K59.00 Pulmonary emboli I26.99 Paroxysmal A-fib I48.0 Hypertension I10 Hyperlipidemia E78.2 Hyperlipidemia type: mixed hyperlipidemia Diabetes mellitus type 2 in obese E11.69; E66.9 GERD (gastroesophageal reflux disease) K21.9 (5) Hyperlipidemia Hyperlipidemia type: mixed hyperlipidemia Qualified Code(s): E78.2 - Mixed hyperlipidemia
[2023-01-23] MEDS ORDERED: GLUCAGON FOR INJ 1 MG VIAL SQ PRN (17:32)
[2023-01-23] MEDS ORDERED: CARBOHYDRATES FOR HYPOGLYCEMIA PO PRN (17:32)
[2023-01-23] MEDS ORDERED: GLUCOSE 40% GEL 15 GM TUBE PO PRN (17:32)
[2023-01-23] MEDS ORDERED: HYDROCORTISONE HC 2.5% CRM 30GM TUBE EXT PRN (17:32)
[2023-01-23] MEDS ORDERED: DEXTROSE 50% 50 ML SYRINGE IV PRN (17:32)
[2023-01-23] MEDS ORDERED: ONDANSETRON INJ 2 MG/ML 2 ML VIAL IV PRN (17:32)
[2023-01-23] MEDS ORDERED: GLUCOSE 10 TAB/TUBE PO PRN (17:32)
[2023-01-23] MEDS: INSULIN ASPART PER UNIT CHARGE SC SCH ×2 (18:27→21:02)
[2023-01-23] MEDS: MINERAL OIL ENEMA 133 ML BTL PR SCH ×3 (18:29→20:45)
[2023-01-23] MEDS: LAVAGE SOLUTION 4000ML PO SCH ×2 (18:36→21:02)
[2023-01-23] MEDS: ACETAMINOPHEN 325 MG TAB PO PRN (20:42)
[2023-01-23] MEDS: APIXABAN 5 MG TABLET PO SCH (21:01)
[2023-01-23] MEDS: SIMVASTATIN 10 MG TAB PO SCH (21:01)
[2023-01-23] MEDS: LANTUS PER UNIT CHARGE SQ SCH (21:06)
[2023-01-24] MEDS: ACETAMINOPHEN 325 MG TAB PO PRN ×3 (01:46→10:28)
[2023-01-24] MEDS: ENALAPRIL MALEATE 10 MG TAB PO SCH (08:28)
[2023-01-24] MEDS: amLODIPine BESYLATE 5 MG TAB PO SCH (08:28)
[2023-01-24] MEDS: APIXABAN 5 MG TABLET PO SCH ×2 (08:28→19:54)
[2023-01-24] MEDS: PANTOprazole 40 MG TAB PO SCH (08:28)
[2023-01-24] MEDS: INSULIN ASPART PER UNIT CHARGE SC SCH ×4 (08:58→21:04)
[2023-01-24] MEDS: LANTUS PER UNIT CHARGE SQ SCH ×2 (08:58→21:05)
--- NOTE | 2023-01-24 09:40 | Gastrointestinal Consultation ---
Date of Consultation January 24, 2023 Assessment & Plan (1) Constipation: Minimal stool output despite bowel prep as outpatient, bowel prep as inpatient, multiple enemas, & disimpaction. -Await KUB results -Continue utilizing Golytely bowel prep for now -Further recommendations regarding bowel regimen pending results of KUB Supervising Physician Co-Signing Physician Notes Agree with RAMA Conroy as above Abd: Soft, NT, distended, +BS Continue current therapy and supportive care Contrast in Rectum would indicate slow transit versus colonic atony Recommend Defecography and Anal Rectal manometry upon discharge at [facility]. History of Present Illness Reason for Consultation: Constipation Attending Physician: Domo Benites MD History of Present Illness Patient is an 82 yo female with PMH of GERD, paroxysmal a fib, constipation, PE, DONNA, lymphocytic colitis, HTN, HLD, OA, gastroparesis, DM2, and chronic low back pain. She was seen in the outpatient setting 6 days ago by Samm Macedo PA-C for constipation that had been ongoing since a hospital admission. She was given recommendations to complete a bowel clean out with Miralax 238 gm and Gatorade 64 oz then begin Trulance daily and up to 3 doses of Miralax daily. The patient notes she completed the bowel clean out and had not stool output. She had an outpatient xray that did not show obstruction but did show moderate to extensive fecal retention. The patient presented to the ED due to inability to have a bowel movement for >2 weeks despite the bowel prep intervention. She had a CT scan that showed a large amount of stool in the rectum with evidence of stercoral colitis. She was manually disimpacted in the ED with minimal stool retrieved. She has had multiple mineral oil enemas since admission and began drinking Golytely throughout the evening last night. She notes still no bowel movement. A KUB is ordered and pending. Of note, patient's last colonoscopy was in 2015. It was endoscopically unremarkable. Biopsies showed a nonspecific increase in the amount of eosinophils, however there was not evidence of eosinophilic colitis. She had a gastric emptying study in 2012 that showed minimal delay in emptying at the 4 hour marcelle with 28% food remaining (should be <10%). Allergies Allergy/AdvReac Type Severity Reaction Status Date / Time No Known Allergies Allergy Verified 01/18/23 13:29 Home Medications Medication Instructions Recorded Confirmed Type multivitamin 0 tab PO QAM 04/13/19 01/23/23 History FreeStyle Lite Meter #1 ea 12/30/20 01/18/23 Rx (blood-glucose meter) lancets 28 gauge (FreeStyle #200 ea 04/15/21 01/18/23 Rx Lancets) pen needle, diabetic 32 gauge x 10/15/22 01/18/23 History 5/32" (BD Ultra-Fine Marquita Pen Needle) insulin aspar prot-insulin aspart See Rx Instructions subcut DAILY 11/24/22 01/23/23 Rx 100 unit/mL (70-30) subcutaneous #15 mL pen (Novolog Mix 70-30FlexPen U-100) metformin 500 mg tablet,extended 500 mg PO DAILY #90 tabs 12/28/22 01/23/23 Rx release 24 hr amlodipine 5 mg-benazepril 10 mg 1 cap PO DAILY 01/15/23 01/23/23 History capsule apixaban 5 mg (74 tabs) tablets in 0 mg PO BID 01/15/23 01/23/23 History a dose pack (Eliquis) simvastatin 10 mg tablet 10 mg PO HS 01/15/23 01/23/23 History hydrocortisone 2.5 % topical cream 1 applic [place] DAILY PRN hemorrhoids 01/18/23 01/23/23 Rx with perineal applicator #30 grams (Anusol-HC) pantoprazole 40 mg tablet,delayed 40 mg PO QAM #90 tabs 01/18/23 01/23/23 Rx release sucralfate 1 gram tablet (Carafate) 0 g PO BID 01/18/23 01/18/23 History doxycycline monohydrate 100 mg 100 mg PO BID 01/23/23 01/23/23 History capsule plecanatide 3 mg tablet (Trulance) 0 mg PO DAILY 01/23/23 History Patient History Medical History Acute left-sided low back pain Chronic low back pain Diabetic retinopathy Encounter for pre-operative examination Gastroparesis Generalized osteoarthritis GERD (gastroesophageal reflux disease) controlled Hyperlipidemia Hypertension 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 Per records Obstructive sleep apnea Could not tolerate device Osteopenia after menopause Type 2 diabetes mellitus with peripheral neuropathy IDDM Surgical History H/O tubal ligation History of ankle surgery Left History of cataract surgery R/L History of colonoscopy History of tooth extraction Status post right partial knee replacement Family History Father Stroke Mother Diabetes Grandmother (Maternal) Diabetes Denies family history of Ovarian cancer Prostate cancer Myocardial infarction Breast cancer Lung cancer Colorectal cancer Social History Smoking Status: Never smoker Second Hand Exposure: No; Do You Dip or Chew Tobacco: No; Tobacco Cessation Education Requested by Patient: No Hx Alcohol Use: No Hx Substance Use: No Preferred Language: Yakut Communication Ability: Effective Visual Impairment: Limited Hearing Ability: Use of Hearing Aid Rn Orthopaedics Required: No Beliefs That Will Affect Care: None marital status: / Current Living Situation: Alone Current Living Situation Comment: Grandson in a nearby apartment current occupational status: retired How many Children do You have: 3 Other Information That Helps Us Care for You: No Feels Safe at Home: Yes Safety Concerns: Feels Safe At This Time Childhood Exposure to Second-Hand Smoke: No caffeine: Yes Dental Care, Regularly: Yes Physical Activity Frequency: 1-2 Times per Week Seatbelt Use: always Sunscreen Use: Yes Assistive Devices: Cane and Walker Assistive Devices Comment: Glasses are here. Hearing aid at home Review of Systems Constitutional: no fever and no chills Respiratory: no cough and no dyspnea Cardiovascular: no chest pain Gastrointestinal: + change in bowel habits and + constipation; no abdominal pain Hematologic / Lymphatic: no unexplained weight loss Physical Exam Constitutional: well developed Respiratory: normal respiratory effort Cardiovascular: Rate/Rhythm: regular rate Gastrointestinal (Abdomen): Inspection/Auscultation: + abdomen distended Musculoskeletal: Head/Neck/Chest: normocephalic Psychiatric: Orientation: alert and oriented x 3 Results & Data Vital Signs (Past 12 Hours) Vital Signs Temp Pulse Resp BP Pulse Ox O2 Del Method 01/24/23 08:00 Room Air 01/24/23 07:16 36.8 C 84 16 162/84 H 96 Room Air PG Care Time/CCT Total # of Minutes Spent Total Time Spent with Patient: Total time spent is greater than 50% in coordination of care (as documented) at patient's floor/unit and/or counseling patient: Coding Level of Care Code 30561 INT INP/OBS CARE MIN Diagnoses Constipation K59.00
[2023-01-24] MEDS: POLYETHYLENE (MIRALAX) 17 GM PACK PO SCH ×2 (10:32→19:55)
[2023-01-24] MEDS: DOCUSATE SODIUM 100 MG CAP PO SCH ×2 (10:33→19:54)
--- NOTE | 2023-01-24 11:19 | XRay Report ---
KUB CLINICAL HISTORY: Constipation. COMPARISON STUDY: KUB January 19, [address] of the abdomen and pelvis January 23, 2023. FINDINGS: Incidental note is made of gallstones within the gallbladder. There is no radiographic evid ence for a bowel obstruction. A large amount of stool within the rectum is again. There is residual c ontrast within the rectum. Moderate stool within the colon is noted. IMPRESSION: 1. Large amount of stool within the rectum with residual contrast within the rectum. 2. Moderate amount of stool within the colon. 3. No evidence for a bowel obstruction. 4. Cholelithiasis. ACT 112: Negative or not required by law. Electronically signed by: Yusuf Barrera M.D. 01/24/2023 11:17 AM
[2023-01-24] MEDS ORDERED: SOD PHOSPHATE/SOD BIPHOSPHATE ENEMA 132 ML BTL PR ONE ×2 (11:27)
[2023-01-24] MEDS ORDERED: KETOROLAC 30 MG/ML VIAL IV ONE (11:33)
--- NOTE | 2023-01-24 14:34 | Hospitalist Progress Note ---
Date of Service January 24, 2023 Assessment & Plan (1) Constipation: Plan: GI consult appreciated. She currently is receiving an enema. She will need to be on MiraLAX and Colace going forward. Abdomenpelvis CT scan noted. There is fecal retention and evidence of stercoral colitis. (2) Pulmonary emboli: Plan: Not a new diagnosis. Continue Eliquis (3) Paroxysmal A-fib: Plan: Regular rhythm today. Continue current medications. Continue eliquis (4) Hypertension: Plan: Stable. Continue amlodipine benazepril (5) Hyperlipidemia: Plan: Stable. Continue simvastatin (6) Diabetes mellitus type 2 in obese: Plan: ADA diet. Metformin held on admission. Sliding scale coverage as needed. HGBA1C in September was 8.9 (7) GERD (gastroesophageal reflux disease): Plan: Stable. Continue PPI therapy Plan Hopefully home tomorrow, January 25 Admission and Anticipated Discharge Date Admission Date: January 23, 2023 Subjective Alert and oriented. No distress. She has received an enema and is waiting for the results. CT scan reveals fecal retention with stercoral colitis. She is now on MiraLAX and Colace. Hopefully she can go home tomorrow, January 25 Review of Systems Review of Systems: Constitutional-no fever or chills ENT-no blurred vision, no double vision, no epistaxis, no sore throat Respiratory-no cough, no wheezing, no shortness of breath Cardiac-no palpitations, no chest pain, no syncope GI-no nausea, vomiting, diarrhea, melena, hematochezia. She is constipated however -no urinary retention, no urinary incontinence, no dysuria, no hematuria Musculoskeletal-no joint pain, no muscle tenderness Skin-no bruising, no rashes, no pruritus Neuro-no isolated weakness, no paresthesia, no weakness Psych-no depression, no anxiety Physical Exam Physical Exam: General-alert and oriented x3, no fevers, no chills HEENT-head atraumatic and normocephalic, pupils equal and reactive to light, extraocular muscles intact Neck-no lymphadenopathy or thyromegaly, trachea midline Chest-clear to auscultation percussion. No rales wheezing or rhonchi Cardiac-regular rate and rhythm, normal S1 and S2 Abdomen-normal bowel sounds, nontender, no hepatosplenomegaly Extremities-no cyanosis, clubbing, or edema Neuro-cranial nerves II through XII intact, motor and sensory function within normal limits, strength symmetrical , no focal deficits Psych-normal affect, normal mood Results & Data Results & Data Vital Signs (Past 12 Hours) Vital Signs Temp Pulse Resp BP Pulse Ox O2 Del Method 01/24/23 08:00 Room Air 01/24/23 07:16 36.8 C 84 16 162/84 H 96 Room Air Laboratory Results 01/23/23 11:48 01/23/23 11:48 PG Care Time/CCT Total # of Minutes Spent Total Time Spent with Patient: Total time spent is greater than 50% in coordination of care (as documented) at patient's floor/unit and/or counseling patient: Coding Level of Care Code 65548 SUB INP/OBS CARE 3/50MIN Diagnoses Constipation K59.00 Pulmonary emboli I26.99 Paroxysmal A-fib I48.0 Hypertension I10 Hyperlipidemia E78.2 Hyperlipidemia type: mixed hyperlipidemia Diabetes mellitus type 2 in obese E11.69; E66.9 GERD (gastroesophageal reflux disease) K21.9 (5) Hyperlipidemia Hyperlipidemia type: mixed hyperlipidemia Qualified Code(s): E78.2 - Mixed hy perlipidemia
[2023-01-24] MEDS: D5W AND NSS 1,000 ML IV SCH (18:01)
[2023-01-24] MEDS: SIMVASTATIN 10 MG TAB PO SCH (19:55)
[2023-01-25] MEDS: POLYETHYLENE (MIRALAX) 17 GM PACK PO SCH ×3 (08:40→13:00)
[2023-01-25] MEDS: ENALAPRIL MALEATE 10 MG TAB PO SCH (08:40)
[2023-01-25] MEDS: DOCUSATE SODIUM 100 MG CAP PO SCH (08:40)
[2023-01-25] MEDS: PANTOprazole 40 MG TAB PO SCH (08:40)
[2023-01-25] MEDS: amLODIPine BESYLATE 5 MG TAB PO SCH (08:40)
[2023-01-25] MEDS: APIXABAN 5 MG TABLET PO SCH (08:41)
[2023-01-25] MEDS: LANTUS PER UNIT CHARGE SQ SCH (09:09)
[2023-01-25] MEDS: INSULIN ASPART PER UNIT CHARGE SC SCH ×2 (09:09→12:57)
--- NOTE | 2023-01-25 09:36 | Communication Note ---
Date of Service: January 25, 2023 Patient underwent multiple enemas on 01/24/23 and 4 bowel movements are charted. KUB suggested contrast retained in the rectum since 01/10/23 when she had a b arium swallow--indicating slow transit vs colonic atony. At present, would utilize Miralax 17 gm q 6 until patient feels sufficient relief. Would advise 64 oz+ water daily. Upon discharge, patient can utilize the Trulance prescribed to her at her last GI clinic visit in addition to Miralax 1- 3 times daily prn. She will need an ARM & defecography upon discharge and our office will be in contact with her about arranging this.
[2023-01-25] MEDS: D5W AND NSS 1,000 ML IV SCH (10:50)
--- NOTE | 2023-01-25 11:14 | Discharge Summary ---
Date of Service January 25, 2023 Admission HPI Per Admitting Provider Nathaly Prasad is a 82 year old female with a past medical history of paroxysmal A Fib, pulmonary embolism on Eliquis, HTN, Diabetes, GERD, Hyperlipidemia and also recent anaplasmosis who presented today to the ER with complaints of severe constipation with no BM in 2 weeks. Patient was recently admitted with anaplasmosis, new onset A Fib and PE. She thinks the constipation began during that admission. She had a visit at the GI office on 01/18/23 and was Rx Anusol HC for her hemorrhoids, and told to take rx trulance 3mg with miralax 17 gm TID. She did this x 2 days and with out any BM she was instructed by GI to have a KUB. She had the abdominal xray and was told to take a whole bottle of miralax in 2 bottles of gatorade. She states she still failed to have any BM. Patient was evaluated in the ER had a CTAP revealing - Large amount of stool within the rectum, similar to KUB of January 19, 2023. Interval development of moderate perirectal/presacral stranding and fluid since CT of January 06, 2023. This suggests stercoral colitis given the large amount of stool. No extraluminal gas. Residual contrast within the distal colon and rectum from barium swallow. No bowel obstruction. Cholelithiasis. CT images reviewed by myself and Dr Johnston colon measures 81.5mm. Dr Hull and myself have spoke to Dr Mello and notified him of patient and her CT findings. He suggested mineral oil enemas and prep from above. Patient denies any vomiting, she admits to some slight nausea, she denies any chest pain, cough, SOB or dyspnea. She denies any abdominal pain but states her abdomen feels full and she does not have much of an appetite. Per ER physician, manual disimpaction performed with minimal amount of stool removed Principal Diagnosis Fecal retention, stercoral colitis Discharge Exam General-alert and oriented x3, no fevers, no chills HEENT-head atraumatic and normocephalic, pupils equal and reactive to light, extraocular muscles intact Neck-no lymphadenopathy or thyromegaly, trachea midline Chest-clear to auscultation percussion. No rales wheezing or rhonchi Cardiac-regular rate and rhythm, normal S1 and S2 Abdomen-normal bowel sounds, nontender, no hepatosplenomegaly Extremities-no cyanosis, clubbing, or edema Neuro-cranial nerves II through XII intact, motor and sensory function within normal limits, strength symmetrical , no focal deficits Psych-normal affect, normal mood Discharge Data Allergies Allergy/AdvReac Type Severity Reaction Status Date / Time No Known Allergies Allergy Verified 01/18/23 13:29 Consultations 01/23/23 14:20 ED Decision to Admit Stat 01/23/23 17:32 Consult Gastroenterology Routine Ordered Studies 01/23/23 12:59 CT abd pelvis IV con only Stat Hospital Course (1) Constipation: GI consult appreciated. Her bowels have moved and she feels better. She received an enema along with the addition of MiraLAX and Colace. She will continue MiraLAX and Colace as an outpatient. She is stable and will be discharged home today, January 25. Abdomenpelvis CT scan noted. There is fecal retention and evidence of stercoral colitis. (2) Pulmonary emboli: Not a new diagnosis. Continue Eliquis (3) Paroxysmal A-fib: Regular rhythm again today. Continue current medications. Continue eliquis (4) Hypertension: Stable. Continue amlodipine, benazepril (5) Hyperlipidemia: Stable. Continue simvastatin (6) Diabetes mellitus type 2 in obese: ADA diet. Metformin held on admission. This will be restarted at discharge sliding scale coverage as needed. HGBA1C in September was 8.9 (7) GERD (gastroesophageal reflux disease): Stable. Continue PPI therapy Plan Home todayJanuary 25 Total Time Total Time Spent Total Time Spent (In Minutes): 40 minutes Discharge Plan Discharge Items Patient Disposition: Home - Self-Care Reason For Visit: CONSTIPATION Discharge Diagnosis: Constipation with fecal retention, stercoral colitis Activity: Resume your previous activity Non-emergency contact: Primary Care Provider Call non-emergency contact if: your symptoms worsen Follow-up/Referrals: Eduardo Dos Santos MD [Primary Care Provider] - 01/31/23 12:00 pm Diet: Carb Consistent or DM2 and Heart Healthy Addtl Attending Provider Instructions: Take MiraLAX and Colace (docusate) daily. Adjust the MiraLAX dosage depending on your response Pending Studies at Discharge: No Stand-Alone Forms: My [facility], Smoking Cessation Medications and DC Order Prescriptions: New docusate sodium 100 mg Capsule 100 mg PO BID Qty: 0 0RF polyethylene glycol 3350 [Miralax] 17 gram Powder In Packet 17 g PO DAILY Qty: 0 0RF Continued (DME) blood-glucose meter [FreeStyle Lite Meter] Kit See Rx Instructions .ROUTE .MEDSUPPLY Qty: 1 0RF Rx Instructions: As directed (DME) lancets [FreeStyle Lancets] 28 gauge misc See Rx Instructions .Route Qty: 200 3RF Rx Instructions: Test blood sugars twice a day metformin 500 mg tablet extended release 24 hr 500 mg PO DAILY Qty: 90 2RF Rx Instructions: Verified with [facility] pharmacist -hasn't picked up Sep 26 2022 multivitamin tablet 0 tab PO QAM Rx Instructions: Unable to verify with either pharmacy (DME) pen needle, diabetic [BD Ultra-Fine Marquita Pen Needle] 32 gauge x 5/32" needle See Rx Instructions .ROUTE .MEDSUPPLY Dose Instruction: As directed Rx Instructions: Inject insulin twice daily sucralfate [Carafate] 1 gram tablet 0 g PO BID Rx Instructions: unable to verify with either pharmacy pantoprazole 40 mg tablet,delayed release (DR/EC) 40 mg PO QAM Qty: 90 1RF Rx Instructions: Verified with [facility] pharmacist hydrocortisone [Anusol-HC] 2.5 % cream with perineal applicator 1 applic DE DAILY PRN (Reason: hemorrhoids) Qty: 30 1RF Rx Instructions: Verified with [facility] pharmacist Trulance 3 mg tablet 0 0RF Rx Instructions: unable to verify with either pharmacy insulin asp prt-insulin aspart [Novolog Mix 70-30FlexPen U-100] 100 unit/mL (70-30) insulin pen See Rx Instructions subcut DAILY Qty: 15 5RF Rx Instructions: 10 units with breakfast, 5 units with lunch and 3 units with dinner subcutaneously daily; TDD up to 20 units Verified with [facility] pharmacist doxycycline monohydrate 100 mg capsule 100 mg PO BID Rx Instructions: Verified with [facility] pharmacist Trulance 3 mg tablet 0 mg PO DAILY simvastatin 10 mg tablet 10 mg PO HS Rx Instructions: Verified with [facility] pharmacist amlodipine-benazepril 5-10 mg capsule 1 cap PO DAILY Eliquis 5 mg (74 tabs) tablets,dose pack 0 mg PO BID Rx Instructions: Patient is on Eliquis starter pack. Start Date 01/11/23- End Date 02/10/23: pt is currently taking Eliquis 5mg: Take 10mg by mouth twice daily as per starter pack directions. Verified with [facility] pharmacist Discharge Orders: Discharge Order (Routine); Ordered 01/25/23 Ordered By: Domo Benites Admission Data Admit Date/Time: 01/23/23 15:28 Attending Provider: Domo Benites Admit Provider: Eduardo Johnston Primary Care Provider: Eduardo Dos Santos Other Providers: Eduardo Johnston ; Isael Cortés Coding Level of Care Code 52205 INP/OBS DISCH >30 MIN Diagnoses Constipation K59.00 Pulmonary emboli I26.99 Paroxysmal A-fib I48.0 Hypertension I10 Hyperlipidemia E78.2 Hyperlipidemia type: mixed hyperlipidemia Diabetes mellitus type 2 in obese E11.69; E66.9 GERD (gastroesophageal reflux disease) K21.9
== END 2023-01-25 14:06 | disposition home or self-care (01) | DRG 392 ==
LOC: ED 10:59 → 3W 15:28 → SUATTDRO 15:28 → 3W 17:30